=== PATIENT | male | born 1970 | race Caucasian/White ===

== ENCOUNTER 2018-04-29 10:55 | Inpatient (IN) ==
--- NOTE | 2018-04-29 11:20 | Emergency Department Note ---
ED Disposition Clinical Impression: Shortness of breath, Acute exacerbation of chronic obstructive airways disease, CO2 retention Disposition: Admitted as Observation Condition on Discharge: Fair Instructions: DI for Chronic Obstructive Pulmonary Disease, DI for Shortness of Breath Additional Instructions: DI for CO2 Retention Time of Disposition: 12:13 - Critical Care Critical Care Time: Yes Attestation: On , the high probability of a clinically significant, sudden or life threatening deterioration of the following system(s) required my full and direct attention, intervention and personal management. The time I documented below is in addition to time spent performing reported procedures but includes the following listed in this critical care notation. Total Critical Care Time: 45 Vital system(s) involved:: Respiratory Failure My critical care processes included: Assessment & monitoring of V/S, Initial and Re-exams, Data Review/Interpretation, Coordinating Care, Medication Orders and management, Documentation Medical Decision Making - Medical Records Medical records reviewed: Yes: I reviewed the patient's medical records. - Grady Inquiry Pt receiving controlled substance: No Grady was queried for this patient: No Vital Signs: 04/29/18 10:56 04/29/18 11:32 04/29/18 11:50 Temperature 98.4 F Temperature Source Axillary Pulse Rate 106 H Pulse Rate [Right Radial] 84 88 112 H Respiratory Rate 26 H 20 Blood Pressure [Left Arm] 161/95 H 160/87 H 166/90 H Blood Pressure Mean [Left Arm] 117 111 115 Blood Pressure Source [Left Arm] Automatic Cuff Automatic Cuff Automatic Cuff Blood Pressure Position [Left Arm] Sitting Sitting Sitting 02 Sat by Pulse Oximetry 93 L 94 L 97 Oxygen Delivery Method Non-Rebreather Non-Rebreather Non-Rebreather Oxygen Flow Rate (LPM) 15 15 15 - Lab Data Lab results reviewed: Yes: I reviewed the patient's lab results. Lab Results 04/29/18 11:10: WBC 10.1, RBC 5.86, Hgb 17.5, Hct 59.1 H, MCV 100.8 H, MCH 29.9, MCHC 29.7 L, RDW 13.0, Plt Count 269, MPV 7.5, Neut % (Auto) 74.7, Lymph % (A uto) 13.1, [place] % (Auto) 11.4 H, Eos % (Auto) 0.3, Baso % (Auto) 0.4, Neut # (Auto) 7.5, Lymph # (Auto) 1.3, [place] # (Auto) 1.1 H, Eos # (Auto) 0.0, Baso # (Auto) 0.1 04/29/18 11:10: Sodium 137, Potassium 3.8, Chloride 96 L, Carbon Dioxide 38 H, Anion Gap 6.8, BUN 9, Creatinine 0.71, Estimated Creat Clear 176, Estimated GFR 118, Est GFR ( Amer) 143, Glucose 155 H, Calcium 8.9, Total Bilirubin 0.5, AST 14 L, ALT 28, Alkaline Phosphatase 168 H, Troponin I < 0.02, Total Protein 8.7 H, Albumin 3.5, Globulin 5.2 H, Albumin/Globulin Ratio 0.7 L 04/29/18 11:10: Lactate 2.0 04/29/18 11:11: Specimen Source Rt radial, O2 % 100, ABG pH 7.24 L*, ABG pCO2 93.0 H, ABG pO2 212.8 H, ABG HCO3 39.1 H, ABG Total CO2 41.9 H, ABG O2 Saturation 99, ABG Base Excess 11.7 H, Faisal Test Acceptable Result diagrams: 04/29/18 11:10 04/29/18 11:10 Orders (Tests/Meds): ED MEDICATIONS Generic Name Dose Route Start Last Admin Trade Name Freq PRN Reason Stop Dose Admin Sodium Chloride 3 ml 04/29/18 11:15 Sodium Chloride 3% 15ml [facility] 05/29/18 11:14 ONCE PRN INDUCE SPUTUM COLLECTION Discontinued Medications Generic Name Dose Route Start Last Admin Trade Name Freq PRN Reason Stop Dose Admin Albuterol/Ipratropium 3 ml 04/29/18 11:14 04/29/18 11:18 Duoneb 3ml [facility] 04/29/18 11:15 3 ml ONCE ONE Administration Methylprednisolone Sodium Succinate 125 mg 04/29/18 11:14 04/29/18 11:15 Solu-Medrol 125mg/2ml Vial IV 04/29/18 11:15 125 mg ONCE ONE Administration ORDERS Category Date Time Status Chest XR -- portable [XR chest portable] Stat Exams 04/29/18 11:17 Taken Blood Culture Stat Micro 04/29/18 11:10 Received Sputum Culture & Gram Stain Stat Micro 04/29/18 11:31 Ordered Arterial Blood Gas Stat RT 04/29/18 11:11 Ordered - Radiology Data #1 Image(s): Chest Image Reviewed: Yes I reviewed the patient's radiology results Preliminary Findings: Abnormal (Bilateral hilar increaded markings.CHF?) - ECG Data Tracing #1 I reviewed this ECG and interpreted as documented below: NSR;Sinus tachycardia ECG initial impression date: 04/29/18 ECG initial impression time: 11:55 Normal Sinus Rhythm: Yes Arrhythmias present: sinus tach - Physician Consults Physician Consulted: Julian Time: 12:11 Reason -: Admission, Pt condition Comment/Response: Admit - Reevaluation(s) Time: 12:11 (improved) Resp/SOB HPI - General Chief Complaint: Shortness of Breath/Dyspnea Stated Complaint: SOA Time Seen by Provider: 04/29/18 11:17 Mode of Arrival: Ambulatory Source of Information: Patient Limitations: No Limitations Description of Symptoms (Recalled from ER Triage Doc. by RN): Patient states that he has been SOA for 3 weeks and it has gradually gotten worse. He states he has had a "head cold" on and off for several weeks. He has had a bad headache for 2 days. - History of Present Illness MD Complaint: shortness of breath, cough Onset (ago): week(s) (3) Severity: moderate Consistency/Duration: constant Relieving factors: nothing Exacerbating factors: coughing Known history of: asthma Associated symptoms: cough, sputum production Treatment prior to arrival: none - Related Data Home Medications Medication Instructions Recorded Confirmed No Known Home Medications 04/29/18 04/29/18 Allergies Allergy/AdvReac Type Severity Reaction Status Date / Time No Known Allergies Allergy Unverified 05/29/17 14:08 [facility] History I have reviewed the patient's past medical history: Yes - Social History Smoking Status: Current every day smoker Tobacco Type: cigarettes # Packs/Day (cigarettes): 1 ROS Obtained: Yes All systems reviewed & no additional complaints - Constitutional Constitutional: Reports system reviewed and no additional complaints, except as docu, Denies chills, Denies fever(s) - ENT Ears, Nose, Mouth, and Throat: Reports system reviewed and no additional complaints, except as docu, Denies change in voice, Denies dizziness, Denies nasal congestion, Denies nasal obstruction - Cardiovascular Cardiovascular: Reports system reviewed and no additional complaints, except as docu, Denies chest pain, Denies diaphoresis, Reports dyspnea, Denies edema, Denies irregular heart rhythm, Denies leg edema, Denies palpitations - Respiratory Respiratory: Yes system reviewed and no additional complaints, except as docu, Yes cough, Yes dyspnea, No coughing up blood, No pain on inspiration, No pain with cough - Gastrointestinal Gastrointestingal: Reports: system reviewed and no additional complaints, except as docu. Denies: abdominal pain, constipation, diarrhea, nausea, vomiting - Neurologic Neurologic: Reports system reviewed and no additional complaints, except as docu, Denies dizziness, Reports headache(s) Physical Exam - General General appearance: alert, in no apparent distress - Head Head exam: atraumatic, normocephalic, normal inspection - ENT ENT exam: Present: normal exam, normal oropharynx, mucous membranes moist, TM's normal bilaterally, normal external ear exam - Respiratory Respiratory exam: Present: normal lung sounds bilaterally, other (Reduced AE bilaterally). Absent: respiratory distress - Cardiovascular Cardiovascular exam: Present: regular rate, normal rhythm. Absent: JVD - Abdominal Exam Abdominal exam: Present: soft, normal bowel sounds. Absent: distention, tenderness, guarding - Extremities Exam Extremities exam: Present: normal inspection, full ROM, normal capillary refill. Absent: pedal edema, calf tenderness - Back Exam Back exam: Present: normal inspection. Absent: tenderness - Neurological Exam Neurological exam: Present: alert, oriented X3 - Psychiatric Psychiatric exam: Present: normal affect, normal mood
[2018-04-29 11:26] LABS: ABG Base Excess 11.7 mmol/L (-2.4-2.3); ABG HCO3 39.1 mmhg (22.0-26.0); ABG Oxygen Saturation 99 % (90-100); ABG PH 7.24 mmol/L (7.35-7.45); ABG PO2 212.8 mmhg (80-100); ABG TCO2 41.9 mmhg (23-27)
[2018-04-29 11:26] LABS: Basophils # 0.1 K/mm3 (0-0.2); Basophils % 0.4 % (0.1-2.0); Eosinophils % 0.3 % (0.1-12.0); Hematocrit 59.1 % (42.0-52.0); Hemoglobin 17.5 g/dL (14.1-18.0); Lymphocytes # 1.3 K/mm3 (0.7-4.5); Lymphocytes % 13.1 % (10-50); Mean Corpuscular HGB Conc 29.7 g/dL (31.8-35.4); Mean Corpuscular Hemoglobin 29.9 pg (27.0-31.2); Mean Corpuscular Volume 100.8 fl (80-94); Mean Platelet Volume 7.5 fl (7.4-10.4); Monocytes # 1.1 K/mm3 (0.1-1.0); Monocytes % 11.4 % (1.7-9.3); Neutrophils # 7.5 K/mm3 (1.8-7.8); Neutrophils % 74.7 % (37.0-80.0); Platelet Count 269 K/mm3 (142-424); Red Blood Count 5.86 M/mm3 (4.60-6.20); White Blood Count 10.1 K/mm3 (4.8-10.8)
[2018-04-29 11:29] LABS: Allen's Test Acceptable; Oxygen 100 %
[2018-04-29 11:57] LABS: Alanine Aminotransferase 28 U/L (12-78); Albumin Level 3.5 gm/dL (3.4-5.0); Albumin/Globulin Ratio 0.7 (1.1-1.8); Alkaline Phosphatase 168 U/L (46-116); Anion Gap 6.8 mEq/L (5-15); Aspartate Amino Transferase 14 U/L (15-37); Bilirubin,Total 0.5 mg/dL (0.2-1.0); Blood Urea Nitrogen 9 mg/dL (7-18); Calcium 8.9 mg/dL (8.5-10.1); Carbon Dioxide 38 mmol/L (21.0-32.0); Chloride 96 mmol/L (98-107); Globulin 5.2 gm/dl (1.3-3.2); Glucose 155 mg/dL (74-106); Potassium 3.8 mmoL/L (3.5-5.1); Sodium 137 mmol/L (136-145); Total Protein,Serum 8.7 gm/dL (6.4-8.2)
--- NOTE | 2018-04-29 13:24 | History & Physical Report ---
Addendum entered and electronically signed by Yashira BullDEVIN oliveira 04/29/18 14:50: Pt has been placed on BIPAP with FiO2 at 30%; will repeat ABG's in 1 hour Original Note: *Admission Date: 04/29/18 <Yashira Jerome - 04/29/18 13:24> *Chief complaint: shortness of breath <Yashira Jerome 04/29/18 13:43> *History of present illness: Upon arrival to the ER patient stated that he had been SOA for 3 weeks and it gradually worsened. He statesd he had had a "head cold" on and off for several weeks. He had a bad headache for 2 days. This exam patient is unable to give history. Information is obtained from nursing staff, ER record, and indirect comments from a friend. Patient is a 48-year-old male patient who apparently has been sick for the last 2-3 days. He had a cough along with shortness of breath. He did regressed to the point where he requested to come to the emergency room. In the emergency room he was placed on 100% oxygen per nonrebreather. ABGs revealed a respiratory acidosis with a PO2 greater than 200. He was given IV Solu-Medrol, DuoNeb treatment, and started on Zithromax and Rocephin. At this time of exam patient is very poorly responsive. He will sluggishly open eyes to command. Respiratory rate is in the 40s and heart rate is in the 120s. Patient will be placed on BiPAP after ABG is repeated. Apparently patient has had respiratory problems in the past requiring hospitalization. Phone numbers for contacts are not in service and could not obtain additional information. <JeromeYiselYashira - 04/29/18 14:24> [facility] History I have reviewed the patient's past medical history: No (No past medical history is available and patient is unable to answer questi) <JeromeYiselYashira 04/29/18 14:18> Medical History: Reports:: Chronic Obstructive Pulmonary Disease (COPD) Denies:: Diabetes Mellitus Type 1, Diabetes Mellitus Type 2 <JeromeYashira - 04/29/18 14:18> - *Social History Smoking Status: Current every day smoker <JustusYashira 04/29/18 13:24> Tobacco Type: cigarettes <Yashira Jerome - 04/29/18 13:24> # Packs/Day (cigarettes): 1 <Yashira Jermoe 04/29/18 13:24> Alcohol Intake: never <Yashira Jerome 04/29/18 13:24> - Psychiatric History Expresses thoughts of harming self/others: None <Yashira Jerome 04/29/18 13:24> Suicide Plan Description: No Plan <Yashira Jerome 04/29/18 13:24> *Family Hx:: Unable to obtain <Yashira Jerome 04/29/18 14:18> Review of Systems - Constitutional Reports headache(s) <Yashira Jerome 04/29/18 13:43> - *Respiratory Reports cough, Reports shortness of breath <Yashira Jerome 04/29/18 13:43> - *Neurologic Reports headache(s), Denies dizziness <Yashira Jerome 04/29/18 13:24> Meds Home Medications Medication Instructions Recorded Confirmed Type No Known Home Medications 04/29/18 04/29/18 History <Thomas Jordan - 04/29/18 18:58> Allergies Allergy/AdvReac Type Severity Reaction Status Date / Time No Known Allergies Allergy Verified 04/29/18 12:45 <Thomas Jordan - 04/29/18 18:58> Exam Vital signs and Labs for Last 24 Hours: Temp Pulse Resp BP Pulse Ox 97.5 F L 106 H 24 124/72 100 04/29/18 18:00 04/29/18 18:00 04/29/18 18:00 04/29/18 18:00 04/29/18 18:00 Laboratory Results - last 24 hr 04/29/18 11:10: WBC 10.1, RBC 5.86, Hgb 17.5, Hct 59.1 H, MCV 100.8 H, MCH 29.9, MCHC 29.7 L, RDW 13.0, Plt Count 269, MPV 7.5, Neut % (Auto) 74.7, Lymph % (Auto) 13.1, [place] % (Auto) 11.4 H, Eos % (Auto) 0.3, Baso % (Auto) 0.4, Neut # (Auto) 7.5, Lymph # (Auto) 1.3, [place] # (Auto) 1.1 H, Eos # (Auto) 0.0, Baso # (Auto) 0.1 04/29/18 11:10: Sodium 137, Potassium 3.8, Chloride 96 L, Carbon Dioxide 38 H, Anion Gap 6.8, BUN 9, Creatinine 0.71, Estimated Creat Clear 176, Estimated GFR 118, Est GFR ( Amer) 143, Glucose 155 H, Calcium 8.9, Total Bilirubin 0.5, AST 14 L, ALT 28, Alkaline Phosphatase 168 H, Troponin I < 0.02, Total Protein 8.7 H, Albumin 3.5, Globulin 5.2 H, Albumin/Globulin Ratio 0.7 L 04/29/18 11:10: Lactate 2.0 04/29/18 11:11: Specimen Source Rt radial, O2 % 100, ABG pH 7.24 L*, ABG pCO2 93.0 H, ABG pO2 212.8 H, ABG HCO3 39.1 H, ABG Total CO2 41.9 H, ABG O2 Saturation 99, ABG Base Excess 11.7 H, Faisal Test Acceptable 04/29/18 14:05: Specimen Source Rt radial, O2 % 100 nrb, ABG pH 6.98 L*, ABG pCO2 173.2 H, ABG pO2 318.5 H, ABG HCO3 40.2 H, ABG Total CO2 45.6 H, ABG O2 Saturation 99, ABG Base Excess 8.7 H, Faisal Test Acceptable 04/29/18 14:45: Urine Opiates Screen Negative, Urine Methadone Screen Negative, Ur Barbituates Screen Negative, Ur Phencyclidine Scrn Negative, Ur Amphetamines Screen Negative, U Benzodiazepines Scrn Negative, Urine Cocaine Screen Negative, U Marijuana (THC) Screen Negative 04/29/18 14:45: Urine Color Yellow, Urine Appearance Sl cloudy, Urine pH 5.5, Ur Specific [place] >= 1.030, Urine Protein 3+, Urine Glucose (UA) Negative, Urine Ketones Negative, Urine Blood 1+, Urine Nitrate Negative, Urine Bilirubin 2+ A, Urine Urobilinogen 2.0, Ur Leukocyte Esterase Negative, Urine RBC 5-10, Urine WBC Occasional, Ur Squamous Epith Cells None, Urine Bacteria Trace 04/29/18 15:35: Troponin I < 0.02 04/29/18 15:42: Specimen Source Rt radial, O2 % 30, ABG pH 7.15 L*, ABG pCO2 117.4 H, ABG pO2 54.3 L, ABG HCO3 39.8 H, ABG Total CO2 43.4 H, ABG O2 Saturation 87 L*, ABG Base Excess 10.9 H, Faisal Test Acceptable, Vent Rate 22, Tidal Volume Bipap 20/4 <[place],Thomas - 04/29/18 18:58> Temp Pulse Resp BP Pulse Ox 98.4 F 103 H 24 188/88 H 94 L 04/29/18 10:56 04/29/18 12:53 04/29/18 12:53 04/29/18 12:53 04/29/18 12:53 Laboratory Results - last 24 hr 04/29/18 11:10: WBC 10.1, RBC 5.86, Hgb 17.5, Hct 59.1 H, MCV 100.8 H, MCH 29.9, MCHC 29.7 L, RDW 13.0, Plt Count 269, MPV 7.5, Neut % (Auto) 74.7, Lymph % (Auto) 13.1, [place] % (Auto) 11.4 H, Eos % (Auto) 0.3, Baso % (Auto) 0.4, Neut # (Auto) 7.5, Lymph # (Auto) 1.3, [place] # (Auto) 1.1 H, Eos # (Auto) 0.0, Baso # (Auto) 0.1 04/29/18 11:10: Sodium 137, Potassium 3.8, Chloride 96 L, Carbon Dioxide 38 H, Anion Gap 6.8, BUN 9, Creatinine 0.71, Estimated Creat Clear 176, Estimated GFR 118, Est GFR ( Amer) 143, Glucose 155 H, Calcium 8.9, Total Bilirubin 0.5, AST 14 L, ALT 28, Alkaline Phosphatase 168 H, Troponin I < 0.02, Total Protein 8.7 H, Albumin 3.5, Globulin 5.2 H, Albumin/Globulin Ratio 0.7 L 04/29/18 11:10: Lactate 2.0 04/29/18 11:11: Specimen Source Rt radial, O2 % 100, ABG pH 7.24 L*, ABG pCO2 93.0 H, ABG pO2 212.8 H, ABG HCO3 39.1 H, ABG Total CO2 41.9 H, ABG O2 Saturation 99, ABG Base Excess 11.7 H, Faisal Test Acceptable <Yashira Jerome - 04/29/18 13:24> I & O for Last 24 hours: Intake & Output 04/27/18 04/28/18 04/29/18 04/30/18 11:59 11:59 11:59 11:59 Output Total 500 / 500 Balance -500 / -500 Weight 215 lb 196 lb 4 oz <Thomas Jordan - 04/29/18 18:58> Intake & Output 04/27/18 04/28/18 04/29/18 04/30/18 11:59 11:59 11:59 11:59 Weight 215 lb <Yashira Jerome - 04/29/18 13:24> - Constitutional Comments: Patient is in acute respiratory distress at present. He responds poorly by just opening his eyes to calling of his name. <Yashira Jerome 04/29/18 14:18> - *Routine HEENT Exam Eye: Present: PERRL <Yashira Jerome 04/29/18 14:18> - *Routine Neck Exam Absent: carotid bruit, lymphadenopathy, thyromegaly <Yashira Jerome 04/29/18 14:18> - *Routine Respiratory Exam Comments: Rapid respiratory effort in the 40s with poor inspiratory effort. He has rhonchi throughout. He did <Yashira Jerome - 04/29/18 14:18> - *Routine Cardiovascular Exam Present: RRR <Yashira Jerome 04/29/18 14:18> - *Routine Abdominal Exam Present: soft, normoactive bowel sounds. Absent: tenderness <Yashira Jerome 04/29/18 14:18> - *Routine Extremities Exam Present: pulses intact. Absent: edema <Yashira Jerome 04/29/18 14:18> - *Routine Neurological Exam Present: altered mental status <Yashira Jerome 04/29/18 14:18> Patient opens eyes in response to verbal stimulation <Yashira Jerome 04/29/18 14:18> Assessment and Plan (1) Acute exacerbation of chronic obstructive airways disease Current visit: Yes Status: Acute Category: Medical Code(s): J44.1 - Chronic obstructive pulmonary disease with (acute) exacerbation (2) Hypercapnic respiratory failure Current visit: Yes Status: Acute Category: Medical Code(s): J96.92 - Respiratory failure, unspecified with hypercapnia (3) Acute respiratory acidosis Current visit: Yes Status: Acute Category: Medical Code(s): E87.2 - Acidosis (4) Tobacco abuse Current visit: Yes Status: Acute Category: Medical Code(s): Z72.0 - Tobacco use <Thomas Jordan - 04/29/18 18:58> (1) Tobacco abuse Current visit: Yes Status: Acute Category: Medical Code(s): Z72.0 - Tobacco use (2) Acute exacerbation of chronic obstructive airways disease Current visit: Yes Status: Acute Category: Medical Code(s): J44.1 - Chronic obstructive pulmonary disease with (acute) exacerbation <Yashira Jerome - 04/29/18 14:26> - Assessment and plan all Dx Assessment and Plan for all problems:: Saw patient agree with above note. Continue BiPAP support and ICU care. <Thomas Jordan - 04/29/18 18:58> Chest x-ray is pending at this time. Will hold the Lasix ordered in the emergency room; will place on BiPAP and continue with antibiotic treatments. We will continue with duo nebs as well. May require pulmonary toilet with suctioning. Placed on monitor and continuous O2 monitoring as well. It does not awaken will need a Ibarra catheter. ABGs: PH is 6. 9 was with a PCO2 of 170s and a PO2 of 313. Was started on BiPAP. <Yashira Jerome - 04/29/18 14:35>
[2018-04-29 14:26] LABS: ABG Base Excess 8.7 mmol/L (-2.4-2.3); ABG HCO3 40.2 mmhg (22.0-26.0); ABG Oxygen Saturation 99 % (90-100); ABG PO2 318.5 mmhg (80-100); ABG TCO2 45.6 mmhg (23-27)
[2018-04-29 14:28] LABS: Allen's Test Acceptable; Oxygen 100 NRB %
[2018-04-29 14:31] LABS: ABG PCO2 173.2 mmhg (35.0-45.0); ABG PH 6.98 mmol/L (7.35-7.45)
--- NOTE | 2018-04-29 14:47 | Pharmacy Consult Notes ---
[facility] Pharmacy VTE Monitoring - Patient Demographics Admission date: 04/29/18 Report Date: 04/29/18 Time: 14:47 Allergies/Adverse Reactions: Patient Allergies No Known Allergies Allergy (Verified 04/29/18 12:45) Height: 1.78 m Weight: 89.018 kg Patient Problems: Current Active Problems Shortness of breath (Acute) Acute exacerbation of chronic obstructive airways disease (Acute) CO2 retention (Acute) Tobacco abuse (Acute) - VTE Risk Labs: VTE Related Lab Results Hgb 17.5 g/dL (14.1-18.0) 04/29/18 11:10 Hct 59.1 % (42.0-52.0) H 04/29/18 11:10 Plt Count 269 K/mm3 (142-424) 04/29/18 11:10 BUN 9 mg/dL (7-18) 04/29/18 11:10 Creatinine 0.71 mg/dL (0.70-1.30) 04/29/18 11:10 Estimated Creat Clear 176 mL/min (50-200) 04/29/18 11:10 Was VTE Risk Assessment Performed: Yes VTE Score: 2 VTE Risk Level: Low Risk - Prophylaxis VTE Prophylaxis Ordered?: Yes Types of VTE Prophylaxis: TEDS Knee High Location of Applied Device: Bilateral Lower Extremeties
[2018-04-29 15:00] LABS: Microscopic, Urine URINE MICROSCOPIC (MICROSCOPIC)
[2018-04-29 15:10] LABS: Amphetamine/Metha Screen,Urine Negative ng/mL (<1000); Barbiturates Screen,Urine Negative ng/mL (<200); Benzodiazepines Screen,Urine Negative ng/mL (<200); Cannabinoid Screen,Urine Negative ng/mL (<50); Cocaine Screen,Urine Negative ng/mL (<300); Methadone Screen,Urine Negative ng/mL (<300); Opiate Screen,Urine Negative ng/mL (<300); Phencyclidine Screen,Urine Negative ng/mL (<25)
[2018-04-29 15:24] LABS: Appearance,Urine SL CLOUDY (Clear); Blood, Urine 1+ (Negative); Color,Urine YELLOW (Yellow); Glucose,Urine (UA) Negative (Negative); Ketones,Urine Negative (Negative); Leukocyte Esterase,Urine Negative (Negative); PH,Urine 5.5 (5.0-8.5); Protein,Urine 3+ (Negative); Specific Gravity, Urine >= 1.030 (1.005-1.030)
[2018-04-29 15:25] LABS: Bilirubin,Urine 2+ (Negative)
[2018-04-29 15:40] LABS: WBC,Urine Occasional #/hpf (0-3)
[2018-04-29 15:41] LABS: Bacteria,Urine Trace /lpf
[2018-04-29 15:55] LABS: ABG Base Excess 10.9 mmol/L (-2.4-2.3); ABG HCO3 39.8 mmhg (22.0-26.0); ABG Oxygen Saturation 87 % (90-100); ABG PO2 54.3 mmhg (80-100); ABG TCO2 43.4 mmhg (23-27)
[2018-04-29 16:00] LABS: Allen's Test Acceptable; Oxygen 30 %
[2018-04-29 16:01] LABS: ABG PH 7.15 mmol/L (7.35-7.45)
[2018-04-29 16:03] LABS: ABG PCO2 117.4 mmhg (35.0-45.0)
[2018-04-30 05:53] LABS: Basophils % 0.1 % (0.1-2.0); Eosinophils # 0.1 K/mm3 (0.0-0.4); Eosinophils % 0.5 % (0.1-12.0); Hematocrit 52.7 % (42.0-52.0); Lymphocytes % 9.5 % (10-50); Mean Corpuscular HGB Conc 29.1 g/dL (31.8-35.4); Mean Corpuscular Hemoglobin 29.7 pg (27.0-31.2); Mean Corpuscular Volume 102.3 fl (80-94); Monocytes % 9.4 % (1.7-9.3); Neutrophils # 8.1 K/mm3 (1.8-7.8); Neutrophils % 80.5 % (37.0-80.0); Platelet Count 228 K/mm3 (142-424); Red Blood Count 5.15 M/mm3 (4.60-6.20); Red Cell Distribution Width 12.9 % (11.5-17.5); White Blood Count 10.1 K/mm3 (4.8-10.8)
[2018-04-30 06:12] LABS: Albumin Level 2.8 gm/dL (3.4-5.0); Albumin/Globulin Ratio 0.7 (1.1-1.8); Anion Gap 5.2 mEq/L (5-15); Bilirubin,Total 0.3 mg/dL (0.2-1.0); Calcium 8.4 mg/dL (8.5-10.1); Chol/HDL Ratio 3.3 (1-3.5); Globulin 4.2 gm/dl (1.3-3.2); Potassium 4.2 mmoL/L (3.5-5.1)
[2018-04-30 06:29] LABS: Hemoglobin 15.3 g/dL (14.1-18.0)
--- NOTE | 2018-04-30 08:58 | Progress Note ---
<Yashira Jerome - Last Filed: 04/30/18 08:55> Internal Medicine - PN: Subj *Date: 04/30/18 *Time: 07:30 Interval history: Per nursing: Patient is doing much better. Was changed to nasal cannula with O2 at 2 L. Patient states he is doing better today. He does not remember much of yesterday. He feels he is breathing better. He has a nonproductive cough. He has not had a DuoNeb treatment since last p.m. he denies shortness of breath. He denies chest pain. He is not hungry. Further history of the patient: Patient has a history of COPD and has had pneumonia previously. He denies any heart and stomach issues. Continues to smoke about a pack a day. Exam Vital signs and Labs for Last 24 Hours: Temp Pulse Resp BP Pulse Ox 98.7 F 103 H 24 116/67 96 04/30/18 04:00 04/30/18 08:08 04/30/18 02:00 04/30/18 06:00 04/30/18 08:08 Laboratory Results - last 24 hr 04/29/18 11:10: WBC 10.1, RBC 5.86, Hgb 17.5, Hct 59.1 H, MCV 100.8 H, MCH 29.9, MCHC 29.7 L, RDW 13.0, Plt Count 269, MPV 7.5, Neut % (Auto) 74.7, Lymph % (Auto) 13.1, [place] % (Auto) 11.4 H, Eos % (Auto) 0.3, Baso % (Auto) 0.4, Neut # (Auto) 7.5, Lymph # (Auto) 1.3, [place] # (Auto) 1.1 H, Eos # (Auto) 0.0, Baso # (Auto) 0.1 04/29/18 11:10: Sodium 137, Potassium 3.8, Chloride 96 L, Carbon Dioxide 38 H, Anion Gap 6.8, BUN 9, Creatinine 0.71, Estimated Creat Clear 176, Estimated GFR 118, Est GFR ( Amer) 143, Glucose 155 H, Calcium 8.9, Total Bilirubin 0.5, AST 14 L, ALT 28, Alkaline Phosphatase 168 H, Troponin I < 0.02, Total Protein 8.7 H, Albumin 3.5, Globulin 5.2 H, Albumin/Globulin Ratio 0.7 L 04/29/18 11:10: Lactate 2.0 04/29/18 11:11: Specimen Source Rt radial, O2 % 100, ABG pH 7.24 L*, ABG pCO2 93.0 H, ABG pO2 212.8 H, ABG HCO3 39.1 H, ABG Total CO2 41.9 H, ABG O2 Saturation 99, ABG Base Excess 11.7 H, Faisal Test Acceptable 04/29/18 14:05: Specimen Source Rt radial, O2 % 100 nrb, ABG pH 6.98 L*, ABG pCO2 173.2 H, ABG pO2 318.5 H, ABG HCO3 40.2 H, ABG Total CO2 45.6 H, ABG O2 Saturation 99, ABG Base Excess 8.7 H, Faisal Test Acceptable 04/29/18 14:45: Urine Opiates Screen Negative, Urine Methadone Screen Negative, Ur Barbituates Screen Negative, Ur Phencyclidine Scrn Negative, Ur Amphetamines Screen Negative, U Benzodiazepines Scrn Negative, Urine Cocaine Screen Negative, U Marijuana (THC) Screen Negative 04/29/18 14:45: Urine Color Yellow, Urine Appearance Sl cloudy, Urine pH 5.5, Ur Specific [place] >= 1.030, Urine Protein 3+, Urine Glucose (UA) Negative, Urine Ketones Negative, Urine Blood 1+, Urine Nitrate Negative, Urine Bilirubin 2+ A, Urine Urobilinogen 2.0, Ur Leukocyte Esterase Negative, Urine RBC 5-10, Urine WBC Occasional, Ur Squamous Epith Cells None, Urine Bacteria Trace 04/29/18 15:35: Troponin I < 0.02 04/29/18 15:42: Specimen Source Rt radial, O2 % 30, ABG pH 7.15 L*, ABG pCO2 117.4 H, ABG pO2 54.3 L, ABG HCO3 39.8 H, ABG Total CO2 43.4 H, ABG O2 Saturation 87 L*, ABG Base Excess 10.9 H, Faisal Test Acceptable, Vent Rate 22, Tidal Volume Bipap 20/4 04/29/18 21:00: Troponin I < 0.02 04/30/18 05:00: WBC 10.1, RBC 5.15, Hgb 15.3 D, Hct 52.7 H, MCV 102.3 H, MCH 29.7, MCHC 29.1 L, RDW 12.9, Plt Count 228, MPV 8.0, Neut % (Auto) 80.5 H, Lymph % (Auto) 9.5 L, [place] % (Auto) 9.4 H, Eos % (Auto) 0.5, Baso % (Auto) 0.1, Neut # (Auto) 8.1 H, Lymph # (Auto) 1.0, [place] # (Auto) 1.0, Eos # (Auto) 0.1, Baso # (Auto) 0.0 04/30/18 05:00: Sodium 141, Potassium 4.2, Chloride 100, Carbon Dioxide 40 H, Anion Gap 5.2, BUN 15 D, Creatinine 0.66 L, Estimated Creat Clear 172, Estimated GFR 129, Est GFR ( Amer) 156, Glucose 108 H D, Calcium 8.4 L, Magnesium 1.8, Total Bilirubin 0.3, AST 11 L, ALT 21, Alkaline Phosphatase 131 H , Total Protein 7.0, Albumin 2.8 L D, Globulin 4.2 H, Albumin/Globulin Ratio 0.7 L, Triglycerides 55, Cholesterol 116 L, LDL Cholesterol 70, VLDL Cholesterol 11, HDL Cholesterol 35, Cholesterol/HDL Ratio 3.3 I & O for Last 24 hours: Intake & Output 04/27/18 04/28/18 04/29/18 04/30/18 11:59 11:59 11:59 11:59 Intake Total 978 / 978 Output Total 500 / 500 Balance 478 / 478 Weight 215 lb 196 lb 4 oz Microbiology Reports for the Last 24 Hours: Microbiology 04/29/18 23:50 Sputum - Expectorated Sputum Gram Stain - Final - Constitutional no acute distress Comments: Awakened for assessment. Patient is easily aroused and speech is clear. He appears comfortable. Respiratory effort is easy and unlabored. He has a congested cough. - *Routine Respiratory Exam Comments: Bilateral rhonchi throughout - *Routine Cardiovascular Exam Present: RRR - *Routine Abdominal Exam Present: soft, normoactive bowel sounds. Absent: tenderness, distended - *Routine Extremities Exam Absent: edema, calf tenderness - *Routine Neurological Exam Present: alert, oriented X3 Assessment and Plan (1) Acute exacerbation of chronic obstructive airways disease Current visit: Yes Status: Acute Category: Medical Code(s): J44.1 - Chronic obstructive pulmonary disease with (acute) exacerbation (2) Hypercapnic respiratory failure Current visit: Yes Status: Acute Category: Medical Code(s): J96.92 - Respi ratory failure, unspecified with hypercapnia (3) Acute respiratory acidosis Current visit: Yes Status: Acute Category: Medical Code(s): E87.2 - Acidosis (4) Tobacco abuse Current visit: Yes Status: Acute Category: Medical Code(s): Z72.0 - Tobacco use - Assessment and plan all Dx Assessment and Plan for all problems:: We will continue with IV antibiotics, low-dose IV fluids, and urinalysis. Will move out of stepdown <Thomas Jordan - Last Filed: 04/30/18 09:25> Exam Vital signs and Labs for Last 24 Hours: Temp Pulse Resp BP Pulse Ox 98.4 F 103 H 32 H 118/73 96 04/30/18 08:00 04/30/18 08:08 04/30/18 08:00 04/30/18 08:00 04/30/18 08:08 Laboratory Results - last 24 hr 04/29/18 11:10: WBC 10.1, RBC 5.86, Hgb 17.5, Hct 59.1 H, MCV 100.8 H, MCH 29.9, MCHC 29.7 L, RDW 13.0, Plt Count 269, MPV 7.5, Neut % (Auto) 74.7, Lymph % (Auto) 13.1, [place] % (Auto) 11.4 H, Eos % (Auto) 0.3, Baso % (Auto) 0.4, Neut # (Auto) 7.5, Lymph # (Auto) 1.3, [place] # (Auto) 1.1 H, Eos # (Auto) 0.0, Baso # (Auto) 0.1 04/29/18 11:10: Sodium 137, Potassium 3.8, Chloride 96 L, Carbon Dioxide 38 H, Anion Gap 6.8, BUN 9, Creatinine 0.71, Estimated Creat Clear 176, Estimated GFR 118, Est GFR ( Amer) 143, Glucose 155 H, Calcium 8.9, Total Bilirubin 0.5, AST 14 L, ALT 28, Alkaline Phosphatase 168 H, Troponin I < 0.02, Total Protein 8.7 H, Albumin 3.5, Globulin 5.2 H, Albumin/Globulin Ratio 0.7 L 04/29/18 11:10: Lactate 2.0 04/29/18 11:11: Specimen Source Rt radial, O2 % 100, ABG pH 7.24 L*, ABG pCO2 93.0 H, ABG pO2 212.8 H, ABG HCO3 39.1 H, ABG Total CO2 41.9 H, ABG O2 Saturation 99, ABG Base Excess 11.7 H, Faisal Test Acceptable 04/29/18 14:05: Specimen Source Rt radial, O2 % 100 nrb, ABG pH 6.98 L*, ABG pCO2 173.2 H, ABG pO2 318.5 H, ABG HCO3 40.2 H, ABG Total CO2 45.6 H, ABG O2 Saturation 99, ABG Base Excess 8.7 H, Faisal Test Acceptable 04/29/18 14:45: Urine Opiates Screen Negative, Urine Methadone Screen Negative, Ur Barbituates Screen Negative, Ur Phencyclidine Scrn Negative, Ur Amphetamines Screen Negative, U Benzodiazepines Scrn Negative, Urine Cocaine Screen Negative, U Marijuana (THC) Screen Negative 04/29/18 14:45: Urine Color Yellow, Urine Appearance Sl cloudy, Urine pH 5.5, Ur Specific [place] >= 1.030, Urine Protein 3+, Urine Glucose (UA) Negative, Urine Ketones Negative, Urine Blood 1+, Urine Nitrate Negative, Urine Bilirubin 2+ A, Urine Urobilinogen 2.0, Ur Leukocyte Esterase Negative, Urine RBC 5-10, Urine WBC Occasional, Ur Squamous Epith Cells None, Urine Bacteria Trace 04/29/18 15:35: Troponin I < 0.02 04/29/18 15:42: Specimen Source Rt radial, O2 % 30, ABG pH 7.15 L*, ABG pCO2 117.4 H, ABG pO2 54.3 L, ABG HCO3 39.8 H, ABG Total CO2 43.4 H, ABG O2 Saturation 87 L*, ABG Base Excess 10.9 H, Faisal Test Acceptable, Vent Rate 22, Tidal Volume Bipap 20/4 04/29/18 21:00: Troponin I < 0.02 04/30/18 05:00: WBC 10.1, RBC 5.15, Hgb 15.3 D, Hct 52.7 H, MCV 102.3 H, MCH 29.7, MCHC 29.1 L, RDW 12.9, Plt Count 228, MPV 8.0, Neut % (Auto) 80.5 H, Lymph % (Auto) 9.5 L, [place] % (Auto) 9.4 H, Eos % (Auto) 0.5, Baso % (Auto) 0.1, Neut # (Auto) 8.1 H, Lymph # (Auto) 1.0, [place] # (Auto) 1.0, Eos # (Auto) 0.1, Baso # (Auto) 0.0 04/30/18 05:00: Sodium 141, Potassium 4.2, Chloride 100, Carbon Dioxide 40 H, Anion Gap 5.2, BUN 15 D, Creatinine 0.66 L, Estimated Creat Clear 172, Estimated GFR 129, Est GFR ( Amer) 156, Glucose 108 H D, Calcium 8.4 L, Magnesium 1.8, Total Bilirubin 0.3, AST 11 L, ALT 21, Alkaline Phosphatase 131 H , Total Protein 7.0, Albumin 2.8 L D, Globulin 4.2 H, Albumin/Globulin Ratio 0.7 L, Triglycerides 55, Cholesterol 116 L, LDL Cholesterol 70, VLDL Cholesterol 11, HDL Cholesterol 35, Cholesterol/HDL Ratio 3.3 I & O for Last 24 hours: Intake & Output 04/27/18 04/28/18 04/29/18 04/30/18 11:59 11:59 11:59 11:59 Intake Total 1078 / 1078 Output Total 500 / 500 Balance 578 / 578 Weight 215 lb 196 lb 4 oz Microbiology Reports for the Last 24 Hours: Microbiology 04/29/18 23:50 Sputum - Expectorated Sputum Gram Stain - Final Assessment and Plan (1) Acute exacerbation of chronic obstructive airways disease Current visit: Yes Status: Acute Category: Medical Code(s): J44.1 - Chronic obstructive pulmonary disease with (acute) exacerbation (2) Hypercapnic respiratory failure Current visit: Yes Status: Acute Category: Medical Code(s): J96.92 - Respiratory failure, unspecified with hypercapnia (3) Acute respiratory acidosis Current visit: Yes Status: Acute Category: Medical Code(s): E87.2 - Acidosis (4) Tobacco abuse Current visit: Yes Status: Acute Category: Medical Code(s): Z72.0 - Tobacco use - Assessment and plan all Dx Assessment and Plan for all problems:: Saw patient, agree with above note.
--- NOTE | 2018-05-01 08:19 | Progress Note ---
<Gaby Lowe - Last Filed: 05/01/18 08:17> Internal Medicine - PN: Subj *Date: 05/01/18 *Time: 08:17 Interval history: Patient states he is feeling much better today. He denies any shortness of breath. He does have a slight cough. He states he rested well last night and ate breakfast this morning. He is doing well on nasal oxygen and is not sleep with BiPAP last night. Exam Vital signs and Labs for Last 24 Hours: Temp Pulse Resp BP Pulse Ox 98.2 F 93 H 20 123/71 86 L 05/01/18 07:38 05/01/18 08:14 05/01/18 08:00 05/01/18 07:38 05/01/18 08:14 I & O for Last 24 hours: Intake & Output 04/28/18 04/29/18 04/30/18 05/01/18 11:59 11:59 11:59 11:59 Intake Total 1078 / 1078 3541 / 3541 Output Total 500 / 500 1775 / 1775 Balance 578 / 578 1766 / 1766 Weight 215 lb 196 lb 4 oz 204 lb 3 oz Microbiology Reports for the Last 24 Hours: Microbiology 04/29/18 23:50 Sputum - Expectorated Sputum Gram Stain - Final 04/29/18 23:50 Sputum - Expectorated Sputum Sputum Culture - Preliminary - Constitutional no acute distress - *Routine Respiratory Exam Present: CTA bilaterally - *Routine Cardiovascular Exam Present: RRR - *Routine Abdominal Exam Present: soft, normoactive bowel sounds. Absent: tenderness - *Routine Extremities Exam Absent: cyanosis, clubbing, edema Assessment and Plan (1) Acute exacerbation of chronic obstructive airways disease Current visit: Yes Status: Acute Category: Medical Code(s): J44.1 - Chronic obstructive pulmonary disease with (acute) exacerbation (2) Hypercapnic respiratory failure Current visit: Yes Status: Acute Category: Medical Code(s): J96.92 - Respiratory failure, unspecified with hypercapnia (3) Acute respiratory acidosis Current visit: Yes Status: Acute Category: Medical Code(s): E87.2 - Acidosis (4) Tobacco abuse Current visit: Yes Status: Acute Category: Medical Code(s): Z72.0 - Tobacco use - Assessment and plan all Dx Assessment and Plan for all problems:: Patient improving. Will discuss further care with Dr. Jordan. <Thomas Jordan - Last Filed: 05/01/18 08:34> Exam Vital signs and Labs for Last 24 Hours: Temp Pulse Resp BP Pulse Ox 98.2 F 93 H 20 123/71 86 L 05/01/18 07:38 05/01/18 08:14 05/01/18 08:00 05/01/18 07:38 05/01/18 08:14 I & O for Last 24 hours: Intake & Output 04/28/18 04/29/18 04/30/18 05/01/18 11:59 11:59 11:59 11:59 Intake Total 1078 / 1078 3541 / 3541 Output Total 500 / 500 1775 / 1775 Balance 578 / 578 1766 / 1766 Weight 215 lb 196 lb 4 oz 204 lb 3 oz Microbiology Reports for the Last 24 Hours: Microbiology 04/29/18 23:50 Sputum - Expectorated Sputum Gram Stain - Final 04/29/18 23:50 Sputum - Expectorated Sputum Sputum Culture - Preliminary Assessment and Plan (1) Acute exacerbation of chronic obstructive airways disease Current visit: Yes Status: Acute Category: Medical Code(s): J44.1 - Chronic obstructive pulmonary disease with (acute) exacerbation (2) Hypercapnic respiratory failure Current visit: Yes Status: Acute Category: Medical Code(s): J96.92 - Respiratory failure, unspecified with hypercapnia (3) Acute respiratory acidosis Current visit: Yes Status: Acute Category: Medical Code(s): E87.2 - Acidosis (4) Tobacco abuse Current visit: Yes Status: Acute Category: Medical Code(s): Z72.0 - Tobacco use - Assessment and plan all Dx Assessment and Plan for all problems:: Saw patient, agree with above note. He's still requiring supplemental oxygen.
--- NOTE | 2018-05-02 09:47 | Progress Note ---
Internal Medicine - PN: Subj *Date: 05/02/18 *Time: 09:44 Interval history: Patient with no new complaints today, still gets short of breath with any activity. Room air sats at rest finally up to the low 90's Exam Vital signs and Labs for Last 24 Hours: Temp Pulse Resp BP Pulse Ox 97.7 F 84 16 121/85 93 L 05/02/18 08:00 05/02/18 08:00 05/02/18 08:00 05/02/18 08:00 05/02/18 09:38 Vital Signs Temp Pulse Pulse Pulse Resp BP BP 05/02/18 09:38 05/02/18 08:00 97.7 F 84 16 121/85 05/02/18 06:43 85 05/02/18 04:00 98.1 F 71 20 111/51 L 05/01/18 23:15 05/01/18 22:34 81 05/01/18 20:00 05/01/18 19:44 98.2 F 78 20 124/66 05/01/18 16:59 71 05/01/18 15:40 98.3 F 72 18 122/73 05/01/18 12:43 102 H Pulse Ox 05/02/18 09:38 93 L 05/02/18 08:00 91 L 05/02/18 06:43 90 L 05/02/18 04:00 94 L 05/01/18 23:15 87 L 05/01/18 22:34 90 L 05/01/18 20:00 93 L 05/01/18 19:44 93 L 05/01/18 16:59 92 L 05/01/18 15:40 94 L 05/01/18 12:43 Intake and Output 05/01/18 05/02/18 05/02/18 19:59 03:59 11:59 Intake Total 1159 / 1159 360 / 360 Output Total 200 / 200 Balance 1159 / 1159 -200 / -200 360 / 360 Intake: Intake, Oral Amount 600 / 600 360 / 360 Intake, Tube Feeding Amount / Intake, Total IV Amount 558 / 558 0.9 % Sodium Chloride 1,000 ml 258 / 258 @ 50 mls/hr IV .Q20H [facility] Rx#: [id number] Azithromycin 500 mg In 0.9 % 250 / 250 Sodium Chloride 250 ml @ 250 mls/hr IV Q24H [facility] Rx#:[id number] Ceftriaxone 1 gm 1 gm In 0.9 % 50 / 50 Sodium Chloride 50 ml @ 100 mls /hr IV Q24H [facility] Rx#:[id number] Output: Output, Urine Amount 200 / 200 Other: Number of Unmeasured Voids 1 3 Number of Bowel Movements 3 I & O for Last 24 hours: Intake & Output 04/29/18 04/30/18 05/01/18 05/02/18 11:59 11:59 11:59 11:59 Intake Total 1078 / 1078 3541 / 3541 1519 / 1519 Output Total 500 / 500 2125 / 2125 200 / 200 Balance 578 / 578 1416 / 1416 1319 / 1319 Weight 215 lb 196 lb 4 oz 204 lb 3 oz Microbiology Reports for the Last 24 Hours: Microbiology 04/29/18 23:50 Sputum - Expectorated Sputum Gram Stain - Final 04/29/18 23:50 Sputum - Expectorated Sputum Sputum Culture - Final Normal Respiratory Dilia 04/29/18 11:10 Blood Blood Culture - Preliminary NO GROWTH AFTER 48 HOURS 04/29/18 11:10 Blood Blood Culture - Preliminary NO GROWTH AFTER 48 HOURS - Constitutional no acute distress - *Routine HEENT Exam Head: Present: normocephalic Eye: Present: EOMI, PERRL ENT: Present: mucous membranes moist - *Routine Neck Exam Present: supple. Absent: lymphadenopathy - *Routine Respiratory Exam Present: CTA bilaterally - *Routine Cardiovascular Exam Present: RRR - *Routine Abdominal Exam Present: soft, normoactive bowel sounds. Absent: tenderness - *Routine Extremities Exam Absent: cyanosis, clubbing, edema - *Routine Skin Exam Present: warm. Absent: rash - *Routine Neurological Exam Present: alert, oriented X3 Assessment and Plan (1) Acute exacerbation of chronic obstructive airways disease Current visit: Yes Status: Acute Category: Medical Code(s): J44.1 - Chronic obstructive pulmonary disease with (acute) exacerbation (2) Hypercapnic respiratory failure Current visit: Yes Status: Acute Category: Medical Code(s): J96.92 - Respiratory failure, unspecified with hypercapnia (3) Acute respiratory acidosis Current visit: Yes Status: Acute Category: Medical Code(s): E87.2 - Acidosis (4) Tobacco abuse Current visit: Yes Status: Acute Category: Medical Code(s): Z72.0 - Tobacco use (5) History of exposure to noxious chemical Current visit: Yes Status: Acute Category: Medical Code(s): Z77.9 - Other contact with and (suspected) exposures hazardous to health - Assessment and plan all Dx Assessment and Plan for all problems:: Patient is improving. He does not feel like he is ready to be discharged, will continue current treatment.
--- NOTE | 2018-05-03 09:11 | Progress Note ---
<Day Crow - Last Filed: 05/03/18 09:09> Internal Medicine - PN: Subj *Date: 05/03/18 *Time: 07:40 Interval history: Pt is sitting up in bed watching tv. He denies any pain or SOB, notes infrequent productive cough. He reports that he feels ready to go home. Exam Vital signs and Labs for Last 24 Hours: Temp Pulse Resp BP Pulse Ox 98.1 F 72 18 127/79 93 L 05/03/18 08:00 05/03/18 08:00 05/03/18 08:00 05/03/18 08:00 05/03/18 08:04 I & O for Last 24 hours: Intake & Output 04/30/18 05/01/18 05/02/18 05/03/18 11:59 11:59 11:59 11:59 Intake Total 1078 / 1078 3541 / 3541 1519 / 1519 2501 / 2501 Output Total 500 / 500 2125 / 2125 200 / 200 200 / 200 Balance 578 / 578 1416 / 1416 1319 / 1319 2301 / 2301 Weight 196 lb 4 oz 204 lb 3 oz 205 lb Microbiology Reports for the Last 24 Hours: Microbiology 04/29/18 23:50 Sputum - Expectorated Sputum Gram Stain - Final 04/29/18 23:50 Sputum - Expectorated Sputum Sputum Culture - Final Normal Respiratory Dilia - Constitutional no acute distress - *Routine HEENT Exam Head: Present: normocephalic, atraumatic ENT: Present: mucous membranes moist - *Routine Respiratory Exam Comments: O2 in place per NC, good air movement with bibasilar wheezes - *Routine Cardiovascular Exam Present: RRR - *Routine Abdominal Exam Present: soft, normoactive bowel sounds. Absent: tenderness, distended, rebound, guarding, rigid, organomegaly - *Routine Extremities Exam Present: full ROM, pulses intact. Absent: edema, calf tenderness - *Routine Neurological Exam Present: alert, oriented X3, moving all extremities, normal speech Assessment and Plan (1) Acute exacerbation of chronic obstructive airways disease Current visit: Yes Status: Acute Category: Medical Code(s): J44.1 - Chronic obstructive pulmonary disease with (acute) exacerbation (2) Hypercapnic respiratory failure Current visit: Yes Status: Acute Category: Medical Code(s): J96.92 - Respiratory failure, unspecified with hypercapnia (3) Acute respiratory acidosis Current visit: Yes Status: Acute Category: Medical Code(s): E87.2 - Acidosis (4) Tobacco abuse Current visit: Yes Status: Acute Category: Medical Code(s): Z72.0 - Tobacco use (5) History of exposure to noxious chemical Current visit: Yes Status: Acute Category: Medical Code(s): Z77.9 - Other contact with and (suspected) exposures hazardous to health - Assessment and plan all Dx Assessment and Plan for all problems:: per Dr. Moon. <Shivam Moon - Last Filed: 05/03/18 13:25> Exam Vital signs and Labs for Last 24 Hours: Temp Pulse Resp BP Pulse Ox 98.1 F 81 18 127/79 92 L 05/03/18 08:00 05/03/18 12:45 05/03/18 08:00 05/03/18 08:00 05/03/18 10:32 I & O for Last 24 hours: Intake & Output 05/01/18 05/02/18 05/03/18 05/04/18 11:59 11:59 11:59 11:59 Intake Total 3541 / 3541 1519 / 1519 2501 / 2501 Output Total 2125 / 2125 200 / 200 200 / 200 Balance 1416 / 1416 1319 / 1319 2301 / 2301 Weight 204 lb 3 oz 205 lb Microbiology Reports for the Last 24 Hours: Microbiology 04/29/18 23:50 Sputum - Expectorated Sputum Gram Stain - Final 04/29/18 23:50 Sputum - Expectorated Sputum Sputum Culture - Final Normal Respiratory Dilia Assessment and Plan (1) Acute exacerbation of chronic obstructive airways disease Current visit: Yes Status: Acute Category: Medical Code(s): J44.1 - Chronic obstructive pulmonary disease with (acute) exacerbation (2) Hypercapnic respiratory failure Current visit: Yes Status: Acute Category: Medical Code(s): J96.92 - Respiratory failure, unspecified with hypercapnia (3) Acute respiratory acidosis Current visit: Yes Status: Acute Category: Medical Code(s): E87.2 - Acidosis (4) Tobacco abuse Current visit: Yes Status: Acute Category: Medical Code(s): Z72.0 - Tobacco use (5) History of exposure to noxious chemical Current visit: Yes Status: Acute Category: Medical Code(s): Z77.9 - Other contact with and (suspected) exposures hazardous to health - Assessment and plan all Dx Assessment and Plan for all problems:: He still has some dyspnea with exertion. He was weaned to RA this AM and his sats have been running 92-94%. He is stable to discharge home and will continue on steroids and finish course of antibiotics.
--- NOTE | 2018-05-04 21:51 | Discharge Summary ---
General - General Admission date:: 04/29/18 <Shivam Moon - 05/08/18 23:46> 04/29/18 <Gaby Lowe - 05/04/18 21:51> Discharge date: 05/03/18 <Gaby Lowe - 05/04/18 21:51> HPI HPI: Upon arrival to the ER patient stated that he had been SOA for 3 weeks and it gradually worsened. He stated he had had a "head cold" on and off for several weeks. He had a bad headache for 2 days. This exam patient is unable to give history. Information is obtained from nursing staff, ER record, and indirect comments from a friend. Patient is a 48-year-old male patient who apparently has been sick for the last 2-3 days. He had a cough along with shortness of breath. He did regress to the point where he requested to come to the emergency room. In the emergency room he was placed on 100% oxygen per nonrebreather. ABGs revealed a respiratory acidosis with a PO2 greater than 200. He was given IV Solu-Medrol, DuoNeb treatment, and started on Zithromax and Rocephin. At the time of exam patient is very poorly responsive. He will sluggishly open eyes to commands. Respiratory rate is in the 40s and heart rate is in the 120s. Patient will be placed on BiPAP after ABG is repeated. Apparently patient has had respiratory problems in the past requiring hospitalization. Phone numbers for contacts are not in service and could not obtain additional information. <Gaby Lowe - 05/04/18 21:51> Hospital Course Hospital Course: The Lasix ordered in the emergency room was held. The patient was placed on BiPAP and he was continued on antibiotic treatment. Duo nebs were continued. He was placed on the monitor and continuous O2 monitoring as well. The patient did well on BIPAP and was able to be weaned off and placed on nasal oxygen. Once he awoke, he gave a history of COPD and had also had pneumonia previously. He continued to smoke about a pack a day. He was stable to be moved out of step down. He slowly improved and was able to be weaned off of his oxygen. He was stable to be discharged home on steroids and abx. <Gaby Lowe - 05/04/18 21:51> Objective Vital signs: Temp Pulse Resp BP Pulse Ox 98.1 F 81 18 127/79 92 L 05/03/18 08:00 05/03/18 12:45 05/03/18 08:00 05/03/18 08:00 05/03/18 10:32 <Shivam Moon - 05/08/18 23:46> Temp Pulse Resp BP Pulse Ox 98.1 F 81 18 127/79 92 L 05/03/18 08:00 05/03/18 12:45 05/03/18 08:00 05/03/18 08:00 05/03/18 10:32 <Gaby Lowe - 05/04/18 21:51> Narrative: - Constitutional Comments: Patient is in acute respiratory distress at present. He responds poorly by just opening his eyes to calling of his name. - *Routine HEENT Exam Eye: Present: PERRL - *Routine Neck Exam Absent: carotid bruit, lymphadenopathy, thyromegaly - *Routine Respiratory Exam Comments: Rapid respiratory effort in the 40s with poor inspiratory effort. He has rhonchi throughout. He did - *Routine Cardiovascular Exam Present: RRR - *Routine Abdominal Exam Present: soft, normoactive bowel sounds. Absent: tenderness - *Routine Extremities Exam Present: pulses intact. Absent: edema - *Routine Neurological Exam Present: altered mental status Patient opens eyes in response to verbal stimulation <Gaby Lowe - 05/04/18 21:51> DS: Diagnosis - Discharge Diagnosis (1) Acute exacerbation of chronic obstructive airways disease Status: Acute (2) Hypercapnic respiratory failure Status: Acute (3) Acute respiratory acidosis Status: Acute (4) Tobacco abuse Status: Acute (5) History of exposure to noxious chemical Status: Acute <Gaby Lowe - 05/04/18 21:42> (1) Acute exacerbation of chronic obstructive airways disease Status: Acute (2) Hypercapnic respiratory failure Status: Acute (3) Acute respiratory acidosis Status: Acute (4) Tobacco abuse Status: Acute (5) History of exposure to noxious chemical Status: Acute <Shivam Moon - 05/08/18 23:46> Discharge Plan - Patient Discharge Instructions ACTIVITY: Continue current activity <Gaby Lowe - 05/04/18 21:51> DIET: continue same diet <Gaby Lowe - 05/04/18 21:51> Patient Instructions: DI for Chronic Obstructive Pulmonary Disease <Shivam Mono - 05/08/18 23:46> Forms: <Shivam Moon - 05/08/18 23:46> - Follow up Plan Follow up with: Thomas Jordan MD [Staff Physician] - 05/09/18 <Shivam Moon - 05/08/18 23:46> Disposition: Home, Self-Care <Shivam Moon - 05/08/18 23:46> Prescriptions/Medication Reconciliation: New RX: cefUROXime axetil [Ceftin 500mg Tab (GEQ)] 500 mg PO BID #10 tab RX: predniSONE [Deltasone 10mg tablet] 10 mg PO DIRECTED #21 tab <Shivam Moon - 05/08/18 23:46> - Additional Information Additional Information: Concur with plan for discharge. <Shivam Moon - 05/08/18 23:46>
== END 2018-05-03 14:40 | disposition home or self-care (01) ==
LOC: ER 10:55 → 2ND 12:31 → ICU 16:58 → 2ND 05-01 13:13
PROVIDERS: ADMIT Family Medicine; ATTEND Family Medicine
CPT/HCPCS: J0456

== ENCOUNTER 2018-05-13 19:14 | Inpatient (IN) ==
--- NOTE | 2018-05-13 19:35 | Emergency Department Note ---
ED Disposition <Bharat Cervantes - Last Filed: 05/13/18 20:20> Condition on Discharge: Serious - Critical Care Critical Care Time: No <Andrew Patel Betsy - Last Filed: 05/13/18 21:09> Clinical Impression: Acute exacerbation of chronic obstructive airways disease, Tobacco abuse Hypercapnic respiratory failure Qualifiers: Chronicity: acute on chronic Qualified Code(s): J96.22 - Acute and chronic respiratory failure with hypercapnia Disposition: Admitted As Inpatient Attestation: On 05/13/18, the high probability of a clinically significant, sudden or life threatening deterioration of the following system(s) required my full and direct attention, intervention and personal management. The time I documented below is in addition to time spent performing reported procedures but includes the following listed in this critical care notation. Medical Decision Making - Lab Data Result diagrams: 05/13/18 19:26 05/13/18 19:26 <Bharat Cervantes - Last Filed: 05/13/18 20:20> - Medical Records Medical records reviewed: Yes: I reviewed the patient's medical records. - Grady Inquiry Pt receiving controlled substance: No - Lab Data Lab results reviewed: Yes: I reviewed the patient's lab results. Result diagrams: 05/13/18 19:26 05/13/18 19:26 - Radiology Data #1 Image(s): Chest Image Reviewed: Yes I reviewed the patient's radiology image Preliminary Findings: Abnormal (chronic changes ) - ECG Data Tracing #1 Arrhythmias present: sinus tach Ischemic changes: non-specific ST-T wave changes - Physician Consults Physician Consulted: elisa Reason -: Admission <Andrew Patel Betsy - Last Filed: 05/13/18 21:09> Vital Signs: 05/13/18 19:20 05/13/18 19:22 05/13/18 19:44 Temperature Source Oral Pulse Rate Pulse Rate [Right Brachial] 108 H 93 H Respiratory Rate 20 20 Blood Pressure [Right Arm] 170/97 H 121/81 Blood Pressure Mean [Right Arm] 121 94 Blood Pressure Source [Right Arm] Automatic Cuff Automatic Cuff Blood Pressure Position [Right Arm] Sitting Sitting 02 Sat by Pulse Oximetry 67 L 96 93 L Oxygen Delivery Method Room Air Nasal Cannula Nasal Cannula Oxygen Flow Rate (LPM) 4 05/13/18 19:50 05/13/18 20:30 Temperature Source Pulse Rate 102 H Pulse Rate [Right Brachial] 84 Respiratory Rate 18 Blood Pressure [Right Arm] 123/61 Blood Pressure Mean [Right Arm] 81 Blood Pressure Source [Right Arm] Automatic Cuff Blood Pressure Position [Right Arm] Supine 02 Sat by Pulse Oximetry 92 L Oxygen Delivery Method BiPAP Oxygen Flow Rate (LPM) - Lab Data Lab Results 05/13/18 19:26: WBC 9.2, RBC 5.61, Hgb 16.8, Hct 56.9 H, MCV 101.4 H, MCH 29.9, MCHC 29.5 L, RDW 13.5, Plt Count 239, MPV 7.4, Neut % (Auto) 74.9, Lymph % (Auto) 14.0, [place] % (Auto) 10.1 H, Eos % (Auto) 0.5, Baso % (Auto) 0.5, Neut # (Auto) 6.9, Lymph # (Auto) 1.3, [place] # (Auto) 0.9, Eos # (Auto) 0.1, Baso # (Auto) 0.1 05/13/18 19:26: Sodium 141, Potassium 3.5, Chloride 99, Carbon Dioxide 39 H, Anion Gap 6.5, BUN 8, Creatinine 0.62 L, Estimated Creat Clear 201, Estimated GFR 138, Est GFR ( Amer) 168, Glucose 153 H, Calcium 8.6, Total Bilirubin 0.5, AST 19, ALT 69, Alkaline Phosphatase 160 H, Troponin I < 0.02, Total Protein 8.1, Albumin 3.4, Globulin 4.7 H, Albumin/Globulin Ratio 0.7 L, Lipase 38 L 05/13/18 19:26: Lactate 1.3 05/13/18 19:26: B-Natriuretic Peptide 171 H 05/13/18 19:35: Specimen Source Right radial, O2 % 4.5 lpm nc. 38%, ABG pH 7.31 L, ABG pCO2 79.8 H, ABG pO2 63.7 L, ABG HCO3 39.5 H, ABG Total CO2 42.0 H, ABG O2 Saturation 93, ABG Base Excess 13.3 H, Faisal Test Acceptable Orders (Tests/Meds): ED MEDICATIONS Generic Name Dose Route Start Last Admin Trade Name Freq PRN Reason Stop Dose Admin Sodium Chloride 3 ml 05/13/18 19:57 Sodium Chloride 3% 15ml [facility] 06/12/18 19:56 ONCE PRN INDUCE SPUTUM COLLECTION Discontinued Medications Generic Name Dose Route Start Last Admin Trade Name Josh PRN Reason Stop Dose Admin Albuterol/Ipratropium 3 ml 05/13/18 19:30 05/13/18 19:49 Duoneb 3ml [facility] 05/13/18 19:31 3 ml ONCE ONE Administration Methylprednisolone Sodium Succinate 125 mg 05/13/18 19:30 05/13/18 19:39 Solu-Medrol 125mg/2ml Vial IV 05/13/18 19:31 125 mg ONCE ONE Administration ORDERS Category Date Time Status XR chest portable Stat Exams 05/13/18 19:29 Taken Blood Culture Stat Micro 05/13/18 19:26 Ordered Sputum Culture & Gram Stain Stat Micro 05/13/18 19:57 Ordered ECG Request by /Christiano Stat Y 05/13/18 19:29 Ordered Medical Decision Narrative: care to Dr Patel at 20:00 (Bharat Cervantes) General Adult HPI - General Mode of Arrival: Ambulatory Source of Information: Patient Limitations: No Limitations Description of Symptoms (Recalled from ER Triage Doc. by RN): Pt states he has SOA, that started sun. he says he was in the hospital for copd exacerbation for a week and went home on sunday, Pt denies any new cough or fever. <Bharat Cervantes - Last Filed: 05/13/18 20:20> - History of Present Illness Onset (ago): day(s) Severity: moderate Associated symptoms: denies other symptoms Treatments prior to arrival: none <Andrew Patel - Last Filed: 05/13/18 21:09> - General Chief complaint: Shortness of Breath/Dyspnea Stated complaint: SOB Time Seen by Provider: 05/13/18 19:32 - History of Present Illness HPI narrative: mild to mod recurrent shortness of breath today, hx recent hospitalization for copd, no fever, O2sat 60% RA, now 95% on 2 liters, +chest tightness (Bharat Cervantes) - Related Data Previous Rx's Medication Instructions Recorded cefUROXime axetil [Ceftin 500mg 500 mg PO BID #10 tab 05/03/18 Tab (GEQ)] predniSONE [Deltasone 10mg tablet] 10 mg PO DIRECTED #21 tab 05/03/18 Allergies Allergy/AdvReac Type Severity Reaction Status Date / Time No Known Allergies Allergy Verified 04/29/18 12:45 [facility] History I have reviewed the patient's past medical history: Yes Medical History: Reports:: Chronic Obstructive Pulmonary Disease (COPD) Denies:: Diabetes Mellitus Type 1, Diabetes Mellitus Type 2 - Social History Smoking Status: Current every day smoker Tobacco Type: cigarettes # Packs/Day (cigarettes): 1 Alcohol Intake: never Occupational Status: employed - Psychiatric History Expresses thoughts of harming self/others: None Suicide Plan Description: No Plan Family Hx:: Unable to obtain <Bharat Cervantes - Last Filed: 05/13/18 20:20> ROS Obtained: Yes Systems reviewed as appropriate & no additional complaints - Constitutional Constitutional: Reports fatigue - Eyes Eyes: Denies change in vision - ENT Ears, Nose, Mouth, and Throat: Denies dizziness - Cardiovascular Cardiovascular: Denies chest pain - Respiratory Respiratory: Yes dyspnea - Gastrointestinal Gastrointestingal: Denies: vomiting - Musculoskeletal Musculoskeletal: Denies muscle weakness - Integumentary/Breasts Skin/Breast: Denies rash - Neurologic Neurologic: Denies dizziness <Bharat Cervantes - Last Filed: 05/13/18 20:20> Physical Exam - General General appearance: alert, in no apparent distress - Head Head exam: atraumatic - Eye Eye exam: Present: EOMI - ENT ENT exam: Present: normal exam - Neck Neck exam: Present: normal inspection - Chest Chest inspection: Present: normal inspection - Respiratory Respiratory exam: Present: wheezes. Absent: stridor - Cardiovascular Cardiovascular exam: Present: regular rate, normal rhythm - Abdominal Exam Abdominal exam: Present: soft. Absent: tenderness - Extremities Exam Extremities exam: Present: full ROM - Back Exam Back exam: Absent: vertebral tenderness - Neurological Exam Neurological exam: Present: alert, oriented X3 - Psychiatric Psychiatric exam: Present: normal affect, normal mood - Skin Skin exam: Present: warm, dry <Bharat Cervantes - Last Filed: 05/13/18 20:20>
[2018-05-13 19:37] LABS: ABG Base Excess 13.3 mmol/L (-2.4-2.3); ABG HCO3 39.5 mmhg (22.0-26.0); ABG Oxygen Saturation 93 % (90-100); ABG PH 7.31 mmol/L (7.35-7.45); ABG PO2 63.7 mmhg (80-100)
[2018-05-13 19:39] LABS: Allen's Test Acceptable; Oxygen 4.5 LPM NC. 38% %
[2018-05-13 19:40] LABS: ABG PCO2 79.8 mmhg (35.0-45.0)
[2018-05-13 19:51] LABS: Basophils # 0.1 K/mm3 (0-0.2); Basophils % 0.5 % (0.1-2.0); Eosinophils # 0.1 K/mm3 (0.0-0.4); Eosinophils % 0.5 % (0.1-12.0); Hematocrit 56.9 % (42.0-52.0); Hemoglobin 16.8 g/dL (14.1-18.0); Lymphocytes # 1.3 K/mm3 (0.7-4.5); Mean Corpuscular HGB Conc 29.5 g/dL (31.8-35.4); Mean Corpuscular Hemoglobin 29.9 pg (27.0-31.2); Mean Corpuscular Volume 101.4 fl (80-94); Mean Platelet Volume 7.4 fl (7.4-10.4); Monocytes # 0.9 K/mm3 (0.1-1.0); Monocytes % 10.1 % (1.7-9.3); Neutrophils # 6.9 K/mm3 (1.8-7.8); Neutrophils % 74.9 % (37.0-80.0); Platelet Count 239 K/mm3 (142-424); Red Blood Count 5.61 M/mm3 (4.60-6.20); Red Cell Distribution Width 13.5 % (11.5-17.5); White Blood Count 9.2 K/mm3 (4.8-10.8)
[2018-05-13 19:56] LABS: Alanine Aminotransferase 69 U/L (12-78); Albumin Level 3.4 gm/dL (3.4-5.0); Albumin/Globulin Ratio 0.7 (1.1-1.8); Alkaline Phosphatase 160 U/L (46-116); Anion Gap 6.5 mEq/L (5-15); Aspartate Amino Transferase 19 U/L (15-37); Bilirubin,Total 0.5 mg/dL (0.2-1.0); Blood Urea Nitrogen 8 mg/dL (7-18); Calcium 8.6 mg/dL (8.5-10.1); Carbon Dioxide 39 mmol/L (21.0-32.0); Chloride 99 mmol/L (98-107); Globulin 4.7 gm/dl (1.3-3.2); Glucose 153 mg/dL (74-106); Lipase 38 u/L (73-393); Potassium 3.5 mmoL/L (3.5-5.1); Sodium 141 mmol/L (136-145); Total Protein,Serum 8.1 gm/dL (6.4-8.2)
[2018-05-14 07:02] LABS: Anion Gap 4.6 mEq/L (5-15); Potassium 4.6 mmoL/L (3.5-5.1)
[2018-05-14 07:15] LABS: Basophils % 0.1 % (0.1-2.0); Eosinophils % 0.3 % (0.1-12.0); Hematocrit 54.3 % (42.0-52.0); Hemoglobin 15.5 g/dL (14.1-18.0); Lymphocytes # 0.4 K/mm3 (0.7-4.5); Lymphocytes % 6.3 % (10-50); Mean Corpuscular HGB Conc 28.5 g/dL (31.8-35.4); Mean Corpuscular Hemoglobin 29.6 pg (27.0-31.2); Mean Corpuscular Volume 104.1 fl (80-94); Mean Platelet Volume 7.4 fl (7.4-10.4); Monocytes # 0.2 K/mm3 (0.1-1.0); Monocytes % 2.4 % (1.7-9.3); Neutrophils # 6.1 K/mm3 (1.8-7.8); Platelet Count 216 K/mm3 (142-424); Red Blood Count 5.22 M/mm3 (4.60-6.20); Red Cell Distribution Width 13.7 % (11.5-17.5); White Blood Count 6.7 K/mm3 (4.8-10.8)
--- NOTE | 2018-05-14 07:35 | Pharmacy Consult Notes ---
[facility] Pharmacy VTE Monitoring - Patient Demographics Admission date: 05/13/18 Report Date: 05/14/18 Time: 07:35 Allergies/Adverse Reactions: Patient Allergies No Known Allergies Allergy (Verified 04/29/18 12:45) Height: 1.68 m Weight: 95.793 kg Patient Problems: Current Active Problems Acute exacerbation of chronic obstructive airways disease (Acute) Tobacco abuse (Acute) Hypercapnic respiratory failure (Acute) - VTE Risk Labs: VTE Related Lab Results Hgb 15.5 g/dL (14.1-18.0) 05/14/18 06:35 Hct 54.3 % (42.0-52.0) H 05/14/18 06:35 Plt Count 216 K/mm3 (142-424) 05/14/18 06:35 BUN 9 mg/dL (7-18) 05/14/18 06:35 Creatinine 0.66 mg/dL (0.70-1.30) L 05/14/18 06:35 Estimated Creat Clear 185 mL/min (50-200) 05/14/18 06:35 Was VTE Risk Assessment Performed: Yes VTE Score: 4 VTE Risk Level: Low Risk - Prophylaxis VTE Prophylaxis Ordered?: Yes Types of VTE Prophylaxis: TEDS Knee High Location of Applied Device: Bilateral Lower Extremeties - VTE Diagnosis Confirmed Treatment or plan recommended: Continue Current Treatment
[2018-05-14 07:55] LABS: Lymphocytes % 1 % (10-50); Monocytes % 1 % (2-9); Neutrophils % 96 % (42-76); Total Cells Counted 100
[2018-05-14 07:57] LABS: Stomatocytes 3+
--- NOTE | 2018-05-14 10:14 | History & Physical Report ---
*Admission Date: 05/13/18 *Chief complaint: SOA *History of present illness: 48yo M recently admitted to [facility] for Acute Hypercarbic respiratory failure who presented to the ER for Dyspnea. He was seen last month for similar Symptoms. Presents to ER with SOA, Cough, mild confusion worsening since DC on 05/04. Initial work up in ER with hypercarbia, CXR consistent with COPD exac vs PNA. started on BiPAP and Steroids. Medicine consulted to admit and manage further. Requested patient be started on Antibiotics. Required Supplemental O2 to meet goal of low 90s. Denied fevers, N/V/D, rash, [place], Chest pain. C/o fullness in Abdomen like bloating and inability to catch his breath. Of not, not discharged with inhalers. Was prescribed Ceftin and Steroids (did not fill due to cost). Sent home without O2. Patient does not have insurance, works for the [employer]. Smokes 1 ppd, no family Hx of Lung or liver disease [facility] History I have reviewed the patient's past medical history: Yes Medical History: Reports:: Chronic Obstructive Pulmonary Disease (COPD) Denies:: Cancer, Diabetes Mellitus Type 1, Diabetes Mellitus Type 2, MRSA Other Surgeries: Yes: Other (INTESTINAL SX UNSURE WHAT) Amputation: No Fractures: No - *Social History Educational Level: Completed Grade School Smoking Status: Current every day smoker Tobacco Type: cigarettes # Packs/Day (cigarettes): 1 Alcohol Intake: never Occupational Status: employed Household Members: other - Psychiatric History Expresses thoughts of harming self/others: None Suicide Plan Description: No Plan *Family Hx:: No significant family history Review of Systems - Review of Systems Review of systems:: pertinent systems reviewed and negative unless documented below - *Neurologic Denies dizziness Meds Home Medications Medication Instructions Recorded Confirmed Type No Known Home Medications 05/13/18 05/13/18 History Allergies Allergy/AdvReac Type Severity Reaction Status Date / Time No Known Allergies Allergy Verified 04/29/18 12:45 Exam Vital signs and Labs for Last 24 Hours: Temp Pulse Resp BP Pulse Ox 98.3 F 91 H 18 123/78 97 05/14/18 08:00 05/14/18 08:00 05/14/18 08:00 05/14/18 08:00 05/14/18 08:00 Laboratory Results - last 24 hr 05/13/18 19:26: WBC 9.2, RBC 5.61, Hgb 16.8, Hct 56.9 H, MCV 101.4 H, MCH 29.9, MCHC 29.5 L, RDW 13.5, Plt Count 239, MPV 7.4, Neut % (Auto) 74.9, Lymph % (Auto) 14.0, [place] % (Auto) 10.1 H, Eos % (Auto) 0.5, Baso % (Auto) 0.5, Neut # (Auto) 6.9, Lymph # (Auto) 1.3, [place] # (Auto) 0.9, Eos # (Auto) 0.1, Baso # (Auto) 0.1 05/13/18 19:26: Sodium 141, Potassium 3.5, Chloride 99, Carbon Dioxide 39 H, Anion Gap 6.5, BUN 8, Creatinine 0.62 L, Estimated Creat Clear 201, Estimated GFR 138, Est GFR ( Amer) 168, Glucose 153 H, Calcium 8.6, Total Bilirubin 0.5, AST 19, ALT 69, Alkaline Phosphatase 160 H, Troponin I < 0.02, Total Protein 8.1, Albumin 3.4, Globulin 4.7 H, Albumin/Globulin Ratio 0.7 L, Lipase 38 L 05/13/18 19:26: Lactate 1.3 05/13/18 19:26: B-Natriuretic Peptide 171 H 05/13/18 19:35: Specimen Source Right radial, O2 % 4.5 lpm nc. 38%, ABG pH 7.31 L, ABG pCO2 79.8 H, ABG pO2 63.7 L, ABG HCO3 39.5 H, ABG Total CO2 42.0 H, ABG O2 Saturation 93, ABG Base Excess 13.3 H, Faisal Test Acceptable 05/14/18 00:30: Troponin I 0.02 05/14/18 03:15: Troponin I < 0.02 05/14/18 06:35: WBC 6.7 D, RBC 5.22, Hgb 15.5, Hct 54.3 H, MCV 104.1 H, MCH 29.6, MCHC 28.5 L, RDW 13.7, Plt Count 216, MPV 7.4, Neut % (Auto) 91.0 H, Lymph % (Auto) 6.3 L, [place] % (Auto) 2.4, Eos % (Auto) 0.3, Baso % (Auto) 0.1, Neut # (Auto) 6.1, Lymph # (Auto) 0.4 L, [place] # (Auto) 0.2, Eos # (Auto) 0.0, Baso # (Auto) 0.0, Total Counted 100, Neutrophils % (Manual) 96 H, Lymphocytes % (Ma nual) 1 L, Atypical Lymphs % 2.0, Monocytes % (Manual) 1 L, Platelet Estimate Normal, Stomatocytes 3+ 05/14/18 06:35: Sodium 140, Potassium 4.6 D, Chloride 99, Carbon Dioxide 41 H*, Anion Gap 4.6 L, BUN 9, Creatinine 0.66 L, Estimated Creat Clear 185, Estimated GFR 129, Est GFR ( Amer) 156, Glucose 158 H, Calcium 8.0 L I & O for Last 24 hours: Intake & Output 05/11/18 05/12/18 05/13/18 05/14/18 23:59 23:59 23:59 23:59 Intake Total 130 / 130 903 / 903 Output Total 400 / 400 Balance 130 / 130 503 / 503 Weight 95.906 kg 95.793 kg - *Routine HEENT Exam Head: Present: normocephalic, atraumatic Eye: Present: EOMI, PERRL ENT: Present: mucous membranes moist - *Routine Neck Exam Present: supple. Absent: lymphadenopathy, thyromegaly - *Routine Respiratory Exam Present: accessory muscle use, CTA bilaterally, prolonged expiratory phase, rales, wheezes, crackles, distant breath sounds, diminished air movement - *Routine Cardiovascular Exam Present: RRR, Normal S1, Normal S2. Absent: murmur - *Routine Abdominal Exam Present: soft, normoactive bowel sounds (protuberant) - *Routine Rectal Exam Patient deferred: visual exam - *Routine Exam Patient deferred: penile exam - *Routine Extremities Exam Absent: cyanosis, clubbing, edema - *Routine Skin Exam Present: intact. Absent: cyanosis, erythema - *Routine Neurological Exam Present: alert, oriented X3. Absent: altered mental status Assessment and Plan (1) Acute exacerbation of chronic obstructive airways disease Current visit: Yes Status: Acute Category: Medical Code(s): J44.1 - Chronic obstructive pulmonary disease with (acute) exacerbation unable to complete course of treatment form last hospitalization. - transition to PO abx and steroids - continue Supplemental O2, goal >88 while asleep and 92 while awake - BiPAP at night - resting O2 84%, needs Home O2. (2) Hypercapnic respiratory failure Current visit: Yes Status: Acute Qualifiers: Chronicity: acute on chronic Qualified Code(s): J96.22 - Acute and chronic respiratory failure with hypercapnia Category: Medical Code(s): J96.92 - Respiratory failure, unspecified with hypercapnia (3) Tobacco abuse Current visit: Yes Status: Acute Category: Medical Code(s): Z72.0 - Tobacco use - Assessment and plan all Dx Assessment and Plan for all problems:: lack of insurance complicates all aspects of care. Patient has progressive lung disease and will need continued medical care. Care management consulted appreciate recs.
--- NOTE | 2018-05-14 20:13 | Cardiology Report ---
PROCEDURE: 2-D M-mode and color Doppler study INDICATIONS FOR THE TEST: Chest pain COPD+ Heart Murmur Tobacco Smoking+ Palpitations Fatigue Syncope Edema Hypertension Diabetes Mellitus Rheumatic Fever SOB+SERRANO Obesity Hyperlipidemia Family History HD Additional History BIPAP PATIENT INFORMATION HEIGHT: 65 WEIGHT:215 GENDER: Male B/P121/81: 2-D/M-MODE INTERPRETATION: 2-D MEASUREMENTS OBSERVED VALUES IN CMS Right Ventricular Dimension (RVDd) 2.7 Interventricular Septum (Thickness)(IVsd) 1.9 Left Ventricular Internal Dimensions(LVIDd) 4.2 Left Ventricular Posterior Wall (Thickness)(LVPWd) 1.0 Aortic Root 3.0 Aortic Cusp Separation 2.0 Left Atrial Dimensions (LAD) 3.8 2D 1. Left atrium is mildly enlarged, left ventricle is normal size, there is no concentric left ventricular hypertrophy, visually estimated ejection fraction 55-60% with no regional wall motion abnormality. 2. The right atrium and right ventricle are mildly enlarged with normal contractility. 3. The aortic valve is minimally thickened and fibrosed. 4. The mitral and tricuspid valvular grossly normal. 5. The pulmonic valve is poorly visualized. 6. No significant pericardial effusion noted. DOPPLER INTERROGATION: Doppler interrogation of the aortic, mitral and tricuspid valvular presence of mild mitral and tricuspid regurgitation, tricuspid regurgitation jet velocity is inadequate for calculation of the right ventricular systolic pressure, diastolic parameters are inconclusive. Conclusions: 1. Mildly enlarged left atrium, normal left ventricular size, there is no concentric left ventricular hypertrophy, visually estimated ejection fraction 55-60% with no regional wall motion abnormality, diastolic parameters are inconclusive. 2. Mildly enlarged right ventricle with normal contractility. 3. Mild mitral and tricuspid regurgitation 4. No significant pericardial effusion noted.
[2018-05-15 06:08] LABS: Basophils % 0.2 % (0.1-2.0); Eosinophils % 0.3 % (0.1-12.0); Hematocrit 50.5 % (42.0-52.0); Hemoglobin 14.4 g/dL (14.1-18.0); Lymphocytes # 1.6 K/mm3 (0.7-4.5); Lymphocytes % 14.8 % (10-50); Mean Corpuscular HGB Conc 28.6 g/dL (31.8-35.4); Mean Corpuscular Hemoglobin 29.4 pg (27.0-31.2); Mean Corpuscular Volume 102.6 fl (80-94); Mean Platelet Volume 7.6 fl (7.4-10.4); Monocytes # 1.2 K/mm3 (0.1-1.0); Monocytes % 11.3 % (1.7-9.3); Neutrophils # 7.9 K/mm3 (1.8-7.8); Neutrophils % 73.4 % (37.0-80.0); Platelet Count 223 K/mm3 (142-424); Red Blood Count 4.92 M/mm3 (4.60-6.20); Red Cell Distribution Width 13.7 % (11.5-17.5); White Blood Count 10.7 K/mm3 (4.8-10.8)
[2018-05-15 06:17] LABS: Anion Gap 4.2 mEq/L (5-15); Calcium 7.8 mg/dL (8.5-10.1); Potassium 4.2 mmoL/L (3.5-5.1)
--- NOTE | 2018-05-15 07:49 | Progress Note ---
Internal Medicine - PN: Subj *Date: 05/15/18 *Time: 07:47 Interval history: Patient continues to have some shortness of air off oxygen, but was able to tolerate being off BiPAP through the night. Continue to have a productive cough. Exam Vital signs and Labs for Last 24 Hours: Temp Pulse Resp BP Pulse Ox 98.7 F 83 16 105/62 L 86 L 05/15/18 04:00 05/15/18 05:55 05/15/18 04:00 05/15/18 04:00 05/15/18 07:25 Laboratory Results - last 24 hr 05/14/18 06:35: Total Counted 100, Neutrophils % (Manual) 96 H, Lymphocytes % (Manual) 1 L, Atypical Lymphs % 2.0, Monocytes % (Manual) 1 L, Platelet Estimate Normal, Stomatocytes 3+ 05/15/18 05:39: WBC 10.7 D, RBC 4.92, Hgb 14.4, Hct 50.5, MCV 102.6 H, MCH 29.4, MCHC 28.6 L, RDW 13.7, Plt Count 223, MPV 7.6, Neut % (Auto) 73.4, Lymph % (Auto) 14.8, [place] % (Auto) 11.3 H, Eos % (Auto) 0.3, Baso % (Auto) 0.2, Neut # (Auto) 7.9 H, Lymph # (Auto) 1.6, [place] # (Auto) 1.2 H, Eos # (Auto) 0.0, Baso # (Auto) 0.0 05/15/18 05:39: Sodium 139, Potassium 4.2, Chloride 100, Carbon Dioxide 39 H, Anion Gap 4.2 L, BUN 14 D, Creatinine 0.47 L D, Estimated Creat Clear 266, Estimated GFR 191, Est GFR ( Amer) 231 D, Glucose 115 H D, Calcium 7.8 L I & O for Last 24 hours: Intake & Output 05/12/18 05/13/18 05/14/18 05/15/18 11:59 11:59 11:59 11:59 Intake Total 1033 / 1033 1946 / 1946 Output Total 400 / 400 775 / 775 Balance 633 / 633 1171 / 1171 Weight 211 lb 3 oz 215 lb 6 oz Microbiology Reports for the Last 24 Hours: Microbiology 12/04/18 11:04 Sputum - Expectorated Sputum Gram Stain - Final Narrative: Patient is pleasant and talkative. Oropharynx clear. No JVD Lungs have rhonchi in both bases, expiratory wheezes noted. Fairly limited air movement. Abdomen soft nontender, heart rate regular. No edema or clubbing. Assessment and Plan (1) Acute exacerbation of chronic obstructive airways disease Current visit: Yes Status: Acute Category: Medical Code(s): J44.1 - Chronic obstructive pulmonary disease with (acute) exacerbation (2) Hypercapnic respiratory failure Current visit: Yes Status: Acute Qualifiers: Chronicity: acute on chronic Qualified Code(s): J96.22 - Acute and chronic respiratory failure with hypercapnia Category: Medical Code(s): J96.92 - Respiratory failure, unspecified with hypercapnia (3) Tobacco abuse Current visit: Yes Status: Acute Category: Medical Code(s): Z72.0 - Tobacco use - Assessment and plan all Dx Assessment and Plan for all problems:: Significant disease. Plan will be to continue IV therapy through the day to see if his oxygen saturations will improve. We will prescribe Ventolin inhaler so that he can have an inhaler on discharge. On discharge I will dispense inhaler samples from the office so this can be of assistance to him. I strongly counseled him that quitting smoking would not only help his financial situation but would significantly improve his lung disease. This is absolutely imperative for him to have significant hope of any kind of lung function improvement.
--- NOTE | 2018-05-16 08:58 | Discharge Summary ---
General - General Admission date:: 05/13/18 Discharge date: 05/16/18 HPI HPI: 48yo M recently admitted to [facility] for Acute Hypercarbic respiratory failure who presented to the ER for Dyspnea. He was seen last month for similar Symptoms. Presents to ER with SOA, Cough, mild confusion worsening since DC on 05/04. Initial work up in ER with hypercarbia, CXR consistent with COPD exac vs PNA. started on BiPAP and Steroids. Medicine consulted to admit and manage further. Requested patient be started on Antibiotics. Required Supplemental O2 to meet goal of low 90s. Denied fevers, N/V/D, rash, [place], Chest pain. C/o fullness in Abdomen like bloating and inability to catch his breath. Of not, not discharged with inhalers. Was prescribed Ceftin and Steroids (did not fill due to cost). Sent home without O2. Patient does not have insurance, works for [employer]. Smokes 1 ppd, no family Hx of Lung or liver disease Hospital Course Hospital Course: Patient was admitted for IV antibiotics. He was given infusions of Levaquin and restarted on steroids. Duonebs were administered and he was transitioned to an albuterol inhaler. Shortness of breath has improved. He continues to require oxygen, RA saturations 87% this morning. He has had a total of 8 days of IV antibiotics which is sufficient treatment. Care management consulted for financial assistance due to his limited income and resources. Patient is tolerating oral intake well and is ready to be discharged home on oxygen. Discharge home of oxygen at 2L/NC on oxygen. Start Breo. Send albuterol inhaler home with patient. Prednisone 20 mg po BID x 7 days. See medication reconciliation for complete list. FU with myself in one week. Establish at [facility] with Dr. Sexton in 2 weeks. Objective Vital signs: Temp Pulse Resp BP Pulse Ox 97.7 F 83 22 130/68 87 L 05/16/18 08:00 05/16/18 08:00 05/16/18 08:00 05/16/18 08:00 05/16/18 08:00 Narrative: Alert and oriented x3. Rate and rhythm regular. No LE edema. Lung sounds clear, diminished air movement, especially in bases. Abdomen soft, nontender Results Labs on day of discharge: Preliminary micro results at discharge 12/04/18 11:04 Sputum Culture - Preliminary Sputum - Expectorated Sputum 05/13/18 19:26 Blood Culture - Preliminary Blood NO GROWTH AFTER 48 HOURS 05/13/18 19:26 Blood Culture - Preliminary Blood NO GROWTH AFTER 48 HOURS DS: Diagnosis - Discharge Diagnosis (1) Acute exacerbation of chronic obstructive airways disease Status: Acute (2) Hypercapnic respiratory failure Status: Acute (3) Tobacco abuse Status: Acute Discharge Plan - Patient Discharge Instructions ACTIVITY: Continue current activity DIET: continue same diet Patient Instructions: DI for Chronic Obstructive Pulmonary Disease, Respiratory Failure, How to Quit Tobacco Products - Follow up Plan Follow up with: Livia Loya APRN [Nurse Practitioner] - 1 week Disposition: Home, Self-Care Prescriptions/Medication Reconciliation: New Fluticasone/Vilanterol [Breo Ellipta 100-25 Mcg INH] 1 each IH DAILY 30 Days #1 inh predniSONE [Deltasone 20mg tablet] 20 mg PO BID 7 Days #14 tab Albuterol Sulfate [Proventil-HFA 90mcg/puff Inh] 2 puffs IH Q6HP PRN puff PRN Reason: Shortness Of Breath
== END 2018-05-16 13:07 | disposition home or self-care (01) ==
LOC: ER 19:14 → 2ND 20:34
PROVIDERS: ADMIT Internal Medicine Adolescent Medicine; ATTEND Internal Medicine Adolescent Medicine
CPT/HCPCS: J1956

== ENCOUNTER 2019-01-13 16:50 | Inpatient (IN) ==
--- NOTE | 2019-01-13 17:27 | Emergency Department Note ---
ED Disposition Clinical Impression: Severe sepsis, Acute respiratory failure with hypoxia, Bilateral pneumonia Disposition: Admitted As Inpatient Condition on Discharge: Serious Referrals: Provider,Referral, [Primary Care Provider] - Time of Disposition: 18:49 - Critical Care Critical Care Time: No Attestation: On 01/13/19, the high probability of a clinically significant, sudden or life threatening deterioration of the following system(s) required my full and direct attention, intervention and personal management. The time I documented below is in addition to time spent performing reported procedures but includes the following listed in this critical care notation. Medical Decision Making - Medical Records Medical records reviewed: Yes: I reviewed the patient's medical records. - Grady Inquiry Pt receiving controlled substance: No Grady was queried for this patient: No Vital Signs: 01/13/19 17:08 01/13/19 17:15 01/13/19 17:56 Temperature 98.2 F Temperature Source Oral Pulse Rate 105 H Pulse Rate [Right] 116 H 107 H Respiratory Rate 22 24 Blood Pressure [Right Arm] 138/94 H 131/80 Blood Pressure Mean [Right Arm] 108 97 Blood Pressure Source [Right Arm] Automatic Cuff Automatic Cuff Blood Pressure Position [Right Arm] Sitting Sitting 02 Sat by Pulse Oximetry 60 L 100 93 L Oxygen Delivery Method Room Air Non-Rebreather Nasal Cannula Oxygen Flow Rate (LPM) 01/13/19 18:30 01/13/19 18:35 Temperature Temperature Source Pulse Rate Pulse Rate [Right] 103 H 103 H Respiratory Rate 24 Blood Pressure [Right Arm] 133/76 133/76 Blood Pressure Mean [Right Arm] 95 95 Blood Pressure Source [Right Arm] Automatic Cuff Automatic Cuff Blood Pressure Position [Right Arm] Sitting Sitting 02 Sat by Pulse Oximetry 92 L 93 L Oxygen Delivery Method Nasal Cannula Nasal Cannula Oxygen Flow Rate (LPM) 4 - Lab Data Lab results reviewed: Yes: I reviewed the patient's lab results. Lab Results 01/13/19 17:15: D-Dimer < 100 01/13/19 17:15: WBC 9.1, RBC 5.44, Hgb 16.4, Hct 55.2 H, MCV 101.4 H, MCH 30.1, MCHC 29.7 L, RDW 13.6, Plt Count 193, MPV 8.5, Neut % (Auto) 59.6, Lymph % (Auto) 29.6, [place] % (Auto) 10.3 H, Eos % (Auto) 0.3, Baso % (Auto) 0.3, Neut # (Auto) 5.4, Lymph # (Auto) 2.7, [place] # (Auto) 0.9, Eos # (Auto) 0.0, Baso # (Aut o) 0.0 01/13/19 17:15: Sodium 141, Potassium 4.7, Chloride 99, Carbon Dioxide 40 H, Anion Gap 6.7, BUN 14, Creatinine 0.68 L, Estimated Creat Clear 192, Estimated GFR 124, Est GFR ( Amer) 151, Glucose 158 H, Calcium 8.4 L 01/13/19 17:33: Specimen Source Right radial, O2 % 36, ABG pH 7.23 L*, ABG pCO2 99.2 H, ABG pO2 64.7 L, ABG HCO3 40.9 H, ABG Total CO2 43.9 H, ABG O2 Saturation 91, ABG Base Excess 13.4 H, Faisal Test Acceptable 01/13/19 17:58: Lactate 0.5 Result diagrams: 01/13/19 17:15 01/13/19 17:15 Orders (Tests/Meds): ED MEDICATIONS Generic Name Dose Route Start Last Admin Trade Name Freq PRN Reason Stop Dose Admin Levofloxacin/Dextrose 750 mg in 150 mls @ 100 mls/hr 01/13/19 18:15 Levofloxacin 750mg/150ml Premix IV 01/27/19 18:14 Q24H LORENA Protocol Piperacillin Sod/Tazobactam 100 mls @ 200 mls/hr 01/13/19 18:45 Sod 4.5 gm/ Sodium Chloride IV 01/27/19 18:44 Q6H LORENA Protocol Discontinued Medications Generic Name Dose Route Start Last Admin Trade Name Freq PRN Reason Stop Dose Admin Albuterol/Ipratropium 3 ml 01/13/19 17:18 01/13/19 17:15 Duoneb 3ml Neb IH 01/13/19 17:19 3 ml ONCE ONE Administration Methylprednisolone Sodium Succinate 125 mg 01/13/19 17:18 01/13/19 17:32 Solu-Medrol 125mg/2ml Vial IV 01/13/19 17:19 125 mg ONCE ONE Administration ORDERS Category Date Time Status CXR 2 view (NOT portable) [XR chest 2V] Stat Exams 01/13/19 17:34 Taken Blood Culture Stat Micro 01/13/19 17:50 Received - Physician Consults Physician Consulted: elisa Time: 18:49 Reason -: Admission General Adult HPI - General Chief complaint: Shortness of Breath/Dyspnea Stated complaint: SOA Time Seen by Provider: 01/13/19 17:20 Mode of Arrival: Ambulatory Source of Information: Patient Limitations: No Limitations Description of Symptoms (Recalled from ER Triage Doc. by RN): short of breath for the last three weeks that has been getting worse. pt has a hsitory of COPD. - History of Present Illness HPI narrative: dyspnea, chills, headaches for 3 weeks. copd history. no recent steroids - Related Data Home Medications Medication Instructions Recorded Confirmed Mometasone/Formoterol [Dulera 100 8.8 gm IH DAILY 08/27/18 08/27/18 Mcg/5 Mcg Inhaler] Fluticasone/Umeclidin/Vilanter 1 each IH DAILY 01/13/19 01/13/19 [Trelegy Ellipta 100-62.5-25] Previous Rx's Medication Instructions Recorded Albuterol Sulfate [Proventil-HFA 2 puffs IH Q6HP PRN puff 05/16/18 90mcg/puff Inh] Allergies Allergy/AdvReac Type Severity Reaction Status Date / Time No Known Allergies Allergy Verified 04/29/18 12:45 [facility] History - Hepatitis A Screen Drug use history?: No High risk sexual behaviors?: No History of sexually transmitted infection?: No Currently employed?: No Childcare worker?: No Do you have indoor plumbing?: Yes Do you have electricity?: Yes Attestation statement:: This patient has been screened for Hepatitis A risk factors. I have reviewed the patient's past medical history: Yes Medical History: Reports:: Chronic Obstructive Pulmonary Disease (COPD) Denies:: Cancer, Diabetes Mellitus Type 1, Diabetes Mellitus Type 2, MRSA Other Surgeries: Yes: Other (INTESTINAL SX UNSURE WHAT) Amputation: No Fractures: No - Social History Educational Level: Attended High School Smoking Status: Current every day smoker Tobacco Type: cigarettes # Packs/Day (cigarettes): 1 Alcohol Intake: former Alcohol Intake Frequency:: other Substance Use Type: crack/cocaine Last Used Substance: unknown Occupational Status: employed Household Members: other Family Hx:: No significant family history ROS Obtained: Yes All systems reviewed & no additional complaints - Constitutional Constitutional: Reports chills - ENT Ears, Nose, Mouth, and Throat: Denies sinus pain, Denies sinus pressure, Denies sore throat - Cardiovascular Cardiovascular: Denies chest pain, Denies chest pain at rest, Reports dyspnea - Respiratory Respiratory: Yes change in phlegm color, Yes chest congestion, Yes cough, Yes dyspnea, No coughing up blood, No pain on inspiration - Gastrointestinal Gastrointestingal: Denies: abdominal pain - Musculoskeletal Musculoskeletal: Denies abnormal gait, Denies joint pain, Denies joint stiffness, Denies joint swelling - Integumentary/Breasts Skin/Breast: Denies rash, Denies skin pain - Neurologic Neurologic: Denies behavioral changes, Denies confusion, Denies convulsions - Hematologic/Lymphatic Henatologic/Lymphatic: Denies easy bleeding, Denies easy bruising Physical Exam - General General appearance: alert - Head Head exam: atraumatic, normocephalic, normal inspection - Eye Eye exam: Present: normal appearance, PERRL, EOMI - ENT ENT exam: Present: normal exam, normal oropharynx, mucous membranes moist, TM's normal bilaterally, normal external ear exam - Chest Chest inspection: Present: normal inspection - Respiratory Respiratory exam: Present: respiratory distress, wheezes, other (mild). Absent: normal lung sounds bilaterally - Cardiovascular Cardiovascular exam: Present: regular rate, normal rhythm - Abdominal Exam Abdominal exam: Absent: soft, distention, tenderness - Extremities Exam Extremities exam: Absent: normal inspection, full ROM, tenderness - Neurological Exam Neurological exam: Present: alert, oriented X3 - Psychiatric Psychiatric exam: Present: normal affect, normal mood - Skin Skin exam: Present: warm, dry, intact, normal color
[2019-01-13 17:54] LABS: ABG Base Excess 13.4 mmol/L (-2.4-2.3); ABG HCO3 40.9 mmhg (22.0-26.0); ABG Oxygen Saturation 91 % (90-100); ABG PH 7.23 mmol/L (7.35-7.45); ABG PO2 64.7 mmhg (80-100); ABG TCO2 43.9 mmhg (23-27)
[2019-01-13 17:56] LABS: Allen's Test Acceptable; Oxygen 36 %
[2019-01-13 17:58] LABS: ABG PCO2 99.2 mmhg (35.0-45.0)
[2019-01-13 18:02] LABS: Basophils % 0.3 % (0.1-2.0); Eosinophils % 0.3 % (0.1-12.0); Hematocrit 55.2 % (42.0-52.0); Hemoglobin 16.4 g/dL (14.1-18.0); Lymphocytes # 2.7 K/mm3 (0.7-4.5); Lymphocytes % 29.6 % (10-50); Mean Corpuscular HGB Conc 29.7 g/dL (31.8-35.4); Mean Corpuscular Volume 101.4 fl (80-94); Mean Platelet Volume 8.5 fl (7.4-10.4); Monocytes # 0.9 K/mm3 (0.1-1.0); Monocytes % 10.3 % (1.7-9.3); Neutrophils # 5.4 K/mm3 (1.8-7.8); Neutrophils % 59.6 % (37.0-80.0); Platelet Count 193 K/mm3 (142-424); Red Blood Count 5.44 M/mm3 (4.60-6.20); Red Cell Distribution Width 13.6 % (11.5-17.5); White Blood Count 9.1 K/mm3 (4.8-10.8)
[2019-01-13 18:06] LABS: Anion Gap 6.7 mEq/L (5-15); Calcium 8.4 mg/dL (8.5-10.1)
[2019-01-14 06:56] LABS: Basophils % 0.2 % (0.1-2.0); Eosinophils % 0.1 % (0.1-12.0); Hemoglobin 15.7 g/dL (14.1-18.0); Lymphocytes # 4.6 K/mm3 (0.7-4.5); Lymphocytes % 64.4 % (10-50); Mean Corpuscular HGB Conc 29.1 g/dL (31.8-35.4); Mean Corpuscular Volume 104.8 fl (80-94); Mean Platelet Volume 8.1 fl (7.4-10.4); Monocytes # 0.2 K/mm3 (0.1-1.0); Monocytes % 2.3 % (1.7-9.3); Neutrophils # 2.3 K/mm3 (1.8-7.8); Platelet Count 167 K/mm3 (142-424); Red Blood Count 5.15 M/mm3 (4.60-6.20); Red Cell Distribution Width 13.5 % (11.5-17.5); White Blood Count 7.1 K/mm3 (4.8-10.8)
[2019-01-14 07:26] LABS: Anion Gap 5.8 mEq/L (5-15); Calcium 7.9 mg/dL (8.5-10.1)
--- NOTE | 2019-01-14 07:29 | Pharmacy Consult Notes ---
[facility] Pharmacy VTE Monitoring - Patient Demographics Admission date: 01/13/19 Report Date: 01/14/19 Time: 07:29 Allergies/Adverse Reactions: Patient Allergies No Known Allergies Allergy (Verified 04/29/18 12:45) Height: 1.65 m Weight: 100.754 kg Patient Problems: Current Active Problems Severe sepsis (Acute) Acute respiratory failure with hypoxia (Acute) Bilateral pneumonia (Acute) - VTE Risk Labs: VTE Related Lab Results Hgb 15.7 g/dL (14.1-18.0) 01/14/19 06:35 Hct 54.0 % (42.0-52.0) H 01/14/19 06:35 Plt Count 167 K/mm3 (142-424) 01/14/19 06:35 BUN 14 mg/dL (7-18) 01/13/19 17:15 Creatinine 0.68 mg/dL (0.70-1.30) L 01/13/19 17:15 Estimated Creat Clear 192 mL/min (50-200) 01/13/19 17:15 - Prophylaxis VTE Prophylaxis Ordered?: Yes Types of VTE Prophylaxis: TEDS Knee High Location of Applied Device: Bilateral Lower Extremeties - VTE Diagnosis Confirmed Treatment or plan recommended: Continue Current Treatment
--- NOTE | 2019-01-14 08:51 | History & Physical Report ---
*Admission Date: 01/13/19 *Chief complaint: dyspnea *History of present illness: Mr. Simmons is a 48-year-old male with history of COPD and oxygen dependence, 1 pack a day tobacco use, who presented to the ER after driving himself there due to 3 weeks of worsening shortness of breath. Complains of cough that is nonproductive, dyspnea however not wearing his oxygen at home, fevers and fatigue/weakness. Upon arrival to the ER, his saturations were found to be in the high 60s. He responded well with the initiation of oxygen. Initial work-up concerning for elevated CO2 of 99, imaging concerning for pneumonia, tachycardia and tachypnea. Patient presentation consistent with sepsis. Was initiated on broad-spectrum antibiotics and BiPAP for his hypercarbic and hypoxemic respiratory failure. Denied any chest pain, nausea vomiting, diarrhea. Stated he does not take his treatments for COPD regularly. Admitted to medicine for further management [facility] History I have reviewed the patient's past medical history: Yes Medical History: Reports:: Chronic Obstructive Pulmonary Disease (COPD) Denies:: Cancer, Diabetes Mellitus Type 1, Diabetes Mellitus Type 2, MRSA *Have you ever received a pneumonia vaccine?: Yes *Have you received a flu vaccine this season?: No Other Surgeries: Yes: Other (INTESTINAL SX UNSURE WHAT) Amputation: No Fractures: No - *Social History Educational Level: Attended High School Smoking Status: Current every day smoker Tobacco Type: cigarettes # Packs/Day (cigarettes): 1 Alcohol Intake: never Alcohol Intake Frequency:: other Substance Use Type: crack/cocaine Last Used Substance: unknown *Occupational Status:: employed Household Members: other *Travel in the last 8 weeks: None - Psychiatric History Expresses thoughts of harming self/others: None Suicide Plan Description: No Plan Family Hx:: Cancer, Coronary Artery Disease Review of Systems - Review of Systems Review of systems:: pertinent systems reviewed and negative unless documented below - *Neurologic Denies abnormal walking, Denies behavioral changes, Denies confusion, Denies seizure-like activity Meds Home Medications Medication Instructions Recorded Confirmed Type Albuterol Sulfate [Proventil-HFA 2 puffs IH Q6HP PRN puff 05/16/18 01/14/19 Rx 90mcg/puff Inh] Fluticasone/Umeclidin/Vilanter 1 each IH DAILY 01/13/19 01/14/19 History [Arsenio Dickson 100-62.5-25] Allergies Allergy/AdvReac Type Severity Reaction Status Date / Time No Known Allergies Allergy Verified 04/29/18 12:45 Exam Vital signs and Labs for Last 24 Hours: Temp Pulse Resp BP Pulse Ox 98.4 F 85 21 127/78 92 L 01/14/19 08:00 01/14/19 08:00 01/14/19 08:00 01/14/19 08:00 01/14/19 08:00 Laboratory Results - last 24 hr 01/13/19 17:15: D-Dimer < 100 01/13/19 17:15: WBC 9.1, RBC 5.44, Hgb 16.4, Hct 55.2 H, MCV 101.4 H, MCH 30.1, MCHC 29.7 L, RDW 13.6, Plt Count 193, MPV 8.5, Neut % (Auto) 59.6, Lymph % (Auto) 29.6, [place] % (Auto) 10.3 H, Eos % (Auto) 0.3, Baso % (Auto) 0.3, Neut # (Auto) 5.4, Lymph # (Auto) 2.7, [place] # (Auto) 0.9, Eos # (Auto) 0.0, Baso # (Auto) 0.0 01/13/19 17:15: Sodium 141, Potassium 4.7, Chloride 99, Carbon Dioxide 40 H, Anion Gap 6.7, BUN 14, Creatinine 0.68 L, Estimated Creat Clear 192, Estimated GFR 124, Est GFR ( Amer) 151, Glucose 158 H, Calcium 8.4 L 01/13/19 17:33: Specimen Source Right radial, O2 % 36, ABG pH 7.23 L*, ABG pCO2 99.2 H, ABG pO2 64.7 L, ABG HCO3 40.9 H, ABG Total CO2 43.9 H, ABG O2 Saturation 91, ABG Base Excess 13.4 H, Faisal Test Acceptable 01/13/19 17:58: Lactate 0.5 01/14/19 06:35: WBC 7.1, RBC 5.15, Hgb 15.7, Hct 54.0 H, MCV 104.8 H, MCH 30.5, MCHC 29.1 L, RDW 13.5, Plt Count 167, MPV 8.1, Neut % (Auto) 33.0 L, Lymph % (Auto) 64.4 H, [place] % (Auto) 2.3, Eos % (Auto) 0.1, Baso % (Auto) 0.2, Neut # (Auto) 2.3, Lymph # (Auto) 4.6 H, [place] # (Auto) 0.2, Eos # (Auto) 0.0, Baso # (Auto) 0.0 01/14/19 06:35: Sodium 141, Potassium 4.8, Chloride 102, Carbon Dioxide 38 H, Anion Gap 5.8, BUN 14, Creatinine 0.70, Estimated Creat Clear 184, Estimated GFR 120, Est GFR ( Amer) 146, Glucose 189 H, Calcium 7.9 L I & O for Last 24 hours: Intake & Output 01/11/19 01/12/19 01/13/19 01/14/19 23:59 23:59 23:59 23:59 Intake Total 2132 / 2132 Output Total 250 / 250 Balance 1882 / 1882 Weight 100.754 kg 100.754 kg Microbiology Reports for the Last 24 Hours: Microbiology 01/14/19 05:34 Sputum - Expectorated Sputum Gram Stain - Final - Constitutional mild distress, obese - *Routine HEENT Exam Head: Present: normocephalic Eye: Present: EOMI, PERRL ENT: Present: mucous membranes moist - *Routine Neck Exam Present: supple. Absent: JVD - *Routine Respiratory Exam Present: prolonged expiratory phase, wheezes (Faint intermittent), crackles (Right base) - *Routine Cardiovascular Exam Present: RRR, Normal S1. Absent: murmur - *Routine Abdominal Exam Present: soft, normoactive bowel sounds - *Routine Rectal Exam Patient deferred: visual exam - *Routine Exam Patient deferred: penile exam - *Routine Extremities Exam Present: edema. Absent: cyanosis, clubbing - *Routine Skin Exam Present: intact. Absent: cyanosis, erythema - *Routine Neurological Exam Present: alert, oriented X3. Absent: altered mental status (Low to respond however) Assessment and Plan (1) Acute on chronic respiratory failure with hypoxia and hypercapnia Current visit: Yes Status: Acute Category: Medical Code(s): J96.21 - Acute and chronic respiratory failure with hypoxia; J96.22 - Acute and chronic respiratory failure with hypercapnia (2) Bilateral pneumonia Current visit: Yes Status: Acute Qualifiers: Pneumonia type: due to unspecified organism Lung location: unspecified part of lung Qualified Code(s): J18.9 - Pneumonia, unspecified organism Category: Medical Code(s): J18.9 - Pneumonia, unspecified organism Continue azithromycin and Zosyn. Steroids initiated on admission. Oxygen as required for goal sats greater than 92 while awake, greater than 88 while asleep. Transition oral antibiotic regimen to complete 7 to 10 days when appropriate. Will need oxygen at time of discharge (3) Severe sepsis Current visit: Yes Status: Acute Category: Medical Code(s): A41.9 - Sepsis, unspecified organism; R65.20 - Severe sepsis without septic shock Improving. Given respiratory failure, tachypnea, tachycardia, presumed infection with pneumonia. And biotics and fluids initiated. Cultures pending. (4) Tobacco abuse Current visit: No Status: Chronic Category: Medical Code(s): Z72.0 - Tobacco use Nicotine patches ordered. Patient declined at this time. Informed there is no smoking at the hospital (5) Respiratory acidosis Current visit: Yes Status: Acute Category: Medical Code(s): E87.2 - Acidosis Secondary to hypercapnic respiratory failure. Anticipate improvement with BiPAP (6) Macrocytosis without anemia Current visit: Yes Status: Chronic Category: Medical Code(s): D75.89 - Other specified diseases of blood and blood-forming organs - Assessment and plan all Dx Assessment and Plan for all problems:: 88-year-old male with COPD and respiratory failure. Responding to medical management. Condition remains guarded, prognosis fair. Continues to require inpatient management due to sepsis and respiratory failure
[2019-01-14 16:52] LABS: Lymphocytes % 7 % (10-50); Monocytes % 1 % (2-9)
[2019-01-14 16:53] LABS: Nucleated Red Blood Cells 1
[2019-01-14 16:54] LABS: Stomatocytes 1+
[2019-01-14 20:43] LABS: Total Cells Counted 100
[2019-01-14 20:44] LABS: Neutrophils % 92 % (42-76)
--- NOTE | 2019-01-15 08:12 | Progress Note ---
Internal Medicine - PN: Subj *Date: 01/15/19 *Time: 08:11 Interval history: Patient slept fairly well overnight. He continues to be dyspneic when he removes his BiPAP but has been able to eat some breakfast. Exam Vital signs and Labs for Last 24 Hours: Temp Pulse Resp BP Pulse Ox 97.4 F L 75 22 127/76 98 01/15/19 04:00 01/15/19 06:04 01/15/19 04:00 01/15/19 04:00 01/15/19 04:00 Laboratory Results - last 24 hr 01/14/19 06:35: Total Counted 100, Neutrophils % (Manual) 92 H, Lymphocytes % (Manual) 7 L, Monocytes % (Manual) 1 L, Nucleated RBCs 1, Platelet Estimate Normal, Microcytosis Bugg[place], Stomatocytes 1+ I & O for Last 24 hours: Intake & Output 01/12/19 01/13/19 01/14/19 01/15/19 11:59 11:59 11:59 11:59 Intake Total 2132 / 2132 1739 / 1739 Output Total 250 / 250 500 / 500 Balance 1882 / 1882 1239 / 1239 Weight 222 lb 1.993 oz 238 lb 7 oz Microbiology Reports for the Last 24 Hours: Microbiology 01/14/19 05:34 Sputum - Expectorated Sputum Gram Stain - Final Narrative: Patient is pleasant, alert. Oriented x3. Lungs have poor air movement but symmetrically intact. No tracheal deviation. Oropharynx moist and clear. Heart rate regular, perfusion in his extremities is normal with normal capillary refill and good distal pulses. Abdomen soft and nontender. Assessment and Plan (1) Acute on chronic respiratory failure with hypoxia and hypercapnia Current visit: Yes Status: Acute Category: Medical Code(s): J96.21 - Acute and chronic respiratory failure with hypoxia; J96.22 - Acute and chronic respiratory failure with hypercapnia (2) Bilateral pneumonia Current visit: Yes Status: Acute Qualifiers: Pneumonia type: due to unspecified organism Lung location: unspecified part of lung Qualified Code(s): J18.9 - Pneumonia, unspecified organism Category: Medical Code(s): J18.9 - Pneumonia, unspecified organism (3) Severe sepsis Current visit: Yes Status: Acute Category: Medical Code(s): A41.9 - Sepsis, unspecified organism; R65.20 - Severe sepsis without septic shock (4) Tobacco abuse Current visit: No Status: Chronic Category: Medical Code(s): Z72.0 - Tobacco use (5) Respiratory acidosis Current visit: Yes Status: Acute Category: Medical Code(s): E87.2 - Acidosis (6) Macrocytosis without anemia Current visit: Yes Status: Chronic Category: Medical Code(s): D75.89 - Other specified diseases of blood and blood-forming organs - Assessment and plan all Dx Assessment and Plan for all problems:: Patient continues to require BiPAP. I anticipate this will last through today. Plan to get repeat chest x-ray and labs tomorrow morning. Continue antibiotic therapy. Patient's perfusion status and vital signs have normalized.
[2019-01-16 07:44] LABS: Albumin Level 2.6 gm/dL (3.4-5.0); Albumin/Globulin Ratio 0.7 (1.1-1.8); Anion Gap 3.2 mEq/L (5-15); Bilirubin,Total 0.5 mg/dL (0.2-1.0); Calcium 7.9 mg/dL (8.5-10.1); Globulin 3.8 gm/dl (1.3-3.2); Total Protein,Serum 6.4 gm/dL (6.4-8.2)
[2019-01-16 08:33] LABS: Basophils % 0.2 % (0.1-2.0); Hematocrit 52.2 % (42.0-52.0); Hemoglobin 14.8 g/dL (14.1-18.0); Lymphocytes # 5.7 K/mm3 (0.7-4.5); Lymphocytes % 66.9 % (10-50); Mean Corpuscular HGB Conc 28.4 g/dL (31.8-35.4); Mean Corpuscular Volume 104.8 fl (80-94); Mean Platelet Volume 8.6 fl (7.4-10.4); Monocytes # 0.2 K/mm3 (0.1-1.0); Monocytes % 2.6 % (1.7-9.3); Neutrophils # 2.6 K/mm3 (1.8-7.8); Neutrophils % 30.4 % (37.0-80.0); Platelet Count 155 K/mm3 (142-424); Red Blood Count 4.98 M/mm3 (4.60-6.20); Red Cell Distribution Width 13.5 % (11.5-17.5); White Blood Count 8.6 K/mm3 (4.8-10.8)
--- NOTE | 2019-01-16 08:58 | Progress Note ---
Internal Medicine - PN: Subj *Date: 01/16/19 *Time: 08:45 Interval history: Mr. Simmons looks better this morning. He is not dyspneic on interview. Denies any fever, nausea vomiting, chest pain. Does complain of some headache overnight after wearing the BiPAP. Continues to require supplemental oxygen between 3 and 4 L. Is able to ambulate independently to the bathroom without difficulty. Overall states he feels better which is significant improvement. Tolerating IV medications for his pneumonia. Exam Vital signs and Labs for Last 24 Hours: Temp Pulse Resp BP Pulse Ox 98.6 F 78 20 109/55 L 94 L 01/16/19 07:53 01/16/19 07:53 01/16/19 07:53 01/16/19 07:53 01/16/19 08:00 Laboratory Results - last 24 hr 01/16/19 07:08: Sodium 138, Potassium 5.2 H, Chloride 101, Carbon Dioxide 39 H, Anion Gap 3.2 L, BUN 13, Creatinine 0.70, Estimated Creat Clear 204, Estimated GFR 120, Est GFR ( Amer) 146, Glucose 258 H, Calcium 7.9 L, Total Bilirubin 0.5, AST 17, ALT 33, Alkaline Phosphatase 110, Total Protein 6.4, Albumin 2.6 L, Globulin 3.8 H, Albumin/Globulin Ratio 0.7 L I & O for Last 24 hours: Intake & Output 01/13/19 01/14/19 01/15/19 01/16/19 23:59 23:59 23:59 23:59 Intake Total 2132 / 2132 4602 / 4602 1846 / 1846 Output Total 750 / 750 650 / 650 300 / 300 Balance 1382 / 1382 3952 / 3952 1546 / 1546 Weight 100.754 kg 100.754 kg 108.153 kg 111.64 kg Microbiology Reports for the Last 24 Hours: Microbiology 01/13/19 17:50 Blood Blood Culture - Preliminary NO GROWTH AFTER 48 HOURS 01/13/19 17:58 Blood Blood Culture - Preliminary NO GROWTH AFTER 48 HOURS Narrative: Patient is pleasant, alert, awake in bed on exam, Oriented x3. Lungs have fair air movement bilaterally, no wheeze or rhonchi. No tracheal deviation. Oropharynx moist and clear. Heart rate regular, perfusion in his extremities is normal with normal capillary refill and good distal pulses. No edema Abdomen soft and nontender. Assessment and Plan (1) Acute on chronic respiratory failure with hypoxia and hypercapnia Current visit: Yes Status: Acute Category: Medical Code(s): J96.21 - Acute and chronic respiratory failure with hypoxia; J96.22 - Acute and chronic respiratory failure with hypercapnia On admission patient's PCO2 was 99 mmHg. He has been tolerating a BiPAP at night while admitted with good response and improvement in mentation. At this time patient needs volume ventilation to treat respiratory failure; higher pressures on bilevel Pap device will not adequately treat him. Will need device to go home with to continue treatment in the outpatient setting. (2) Bilateral pneumonia Current visit: Yes Status: Acute Qualifiers: Pneumonia type: due to unspecified organism Lung location: unspecified part of lung Qualified Code(s): J18.9 - Pneumonia, unspecified organism Category: Medical Code(s): J18.9 - Pneumonia, unspecified organism (3) Severe sepsis Current visit: Yes Status: Acute Category: Medical Code(s): A41.9 - Sepsis, unspecified organism; R65.20 - Severe sepsis without septic shock (4) Tobacco abuse Current visit: No Status: Chronic Category: Medical Code(s): Z72.0 - Tobacco use (5) Respiratory acidosis Current visit: Yes Status: Acute Category: Medical Code(s): E87.2 - Acidosis (6) Macrocytosis without anemia Current visit: Yes Status: Chronic Category: Medical Code(s): D75.89 - Other specified diseases of blood and blood-forming organs - Assessment and plan all Dx Assessment and Plan for all problems:: Overall patient showing slight improvement. Will initiate trilogy device tonight for home use. Continue to wean oxygen as tolerated. Anticipate discharge tomorrow after establishing care on trilogy device. Will transition oral antibiotics to complete course of therapy at home. Will need oxygen at time of discharge.
[2019-01-16 14:10] LABS: Lymphocytes % 10 % (10-50); Monocytes % 5 % (2-9); Neutrophils % 85 % (42-76); Total Cells Counted 100
[2019-01-16 14:12] LABS: Macrocytosis 2+
[2019-01-17 07:30] LABS: Basophils % 0.2 % (0.1-2.0); Hematocrit 53.6 % (42.0-52.0); Hemoglobin 15.2 g/dL (14.1-18.0); Lymphocytes # 4.5 K/mm3 (0.7-4.5); Lymphocytes % 81.2 % (10-50); Mean Corpuscular HGB Conc 28.3 g/dL (31.8-35.4); Mean Corpuscular Volume 105.2 fl (80-94); Mean Platelet Volume 8.1 fl (7.4-10.4); Monocytes # 0.1 K/mm3 (0.1-1.0); Monocytes % 1.8 % (1.7-9.3); Neutrophils # 0.9 K/mm3 (1.8-7.8); Neutrophils % 16.8 % (37.0-80.0); Platelet Count 150 K/mm3 (142-424); Red Cell Distribution Width 13.7 % (11.5-17.5); White Blood Count 5.5 K/mm3 (4.8-10.8)
[2019-01-17 07:33] LABS: Anion Gap 4.7 mEq/L (5-15)
--- NOTE | 2019-01-17 10:46 | Progress Note ---
Internal Medicine - PN: Subj *Date: 01/17/19 *Time: 10:46 Exam Vital signs and Labs for Last 24 Hours: Temp Pulse Resp BP Pulse Ox 97.9 F 77 22 119/66 94 L 01/17/19 08:00 01/17/19 10:05 01/17/19 08:00 01/17/19 08:00 01/17/19 08:00 Laboratory Results - last 24 hr 01/16/19 07:08: Total Counted 100, Neutrophils % (Manual) 85 H, Lymphocytes % (Manual) 10, Monocytes % (Manual) 5, Differential Comment , Platelet Estimate Normal, Macrocytosis 2+ 01/17/19 07:03: WBC 5.5 D, RBC 5.10, Hgb 15.2, Hct 53.6 H, MCV 105.2 H, MCH 29.8, MCHC 28.3 L, RDW 13.7, Plt Count 150, MPV 8.1, Neut % (Auto) 16.8 L, Lymph % (Auto) 81.2 H, [place] % (Auto) 1.8, Eos % (Auto) 0.0 L, Baso % (Auto) 0.2, Neut # (Auto) 0.9 L*, Lymph # (Auto) 4.5, [place] # (Auto) 0.1, Eos # (Auto) 0.0, Baso # (Auto) 0.0 01/17/19 07:03: Sodium 142, Potassium 4.7, Chloride 103, Carbon Dioxide 39 H, Anion Gap 4.7 L, BUN 11, Creatinine 0.74, Estimated Creat Clear 106, Estimated GFR 113, Est GFR ( Amer) 137, Glucose 359 H D, Calcium 8.0 L I & O for Last 24 hours: Intake & Output 01/14/19 01/15/19 01/16/19 01/17/19 23:59 23:59 23:59 23:59 Intake Total 2132 / 2132 4602 / 4602 3884 / 3884 2561 / 2561 Output Total 750 / 750 650 / 650 650 / 650 725 / 725 Balance 1382 / 1382 3952 / 3952 3234 / 3234 1836 / 1836 Weight 100.754 kg 108.153 kg 111.64 kg 114.986 kg Microbiology Reports for the Last 24 Hours: Microbiology 01/14/19 05:34 Sputum - Expectorated Sputum Gram Stain - Final 01/14/19 05:34 Sputum - Expectorated Sputum Sputum Culture - Preliminary Assessment and Plan (1) Acute on chronic respiratory failure with hypoxia and hypercapnia Current visit: Yes Status: Acute Category: Medical Code(s): J96.21 - Acute and chronic respiratory failure with hypoxia; J96.22 - Acute and chronic respiratory failure with hypercapnia (2) Bilateral pneumonia Current visit: Yes Status: Acute Qualifiers: Pneumonia type: due to unspecified organism Lung location: unspecified part of lung Qualified Code(s): J18.9 - Pneumonia, unspecified organism Category: Medical Code(s): J18.9 - Pneumonia, unspecified organism (3) Severe sepsis Current visit: Yes Status: Acute Category: Medical Code(s): A41.9 - Sepsis, unspecified organism; R65.20 - Severe sepsis without septic shock (4) Tobacco abuse Current visit: No Status: Chronic Category: Medical Code(s): Z72.0 - Tobacco use (5) Respiratory acidosis Current visit: Yes Status: Acute Category: Medical Code(s): E87.2 - Acidosis (6) Macrocytosis without anemia Current visit: Yes Status: Chronic Category: Medical Code(s): D75.89 - Other specified diseases of blood and blood-forming organs The patient's infection will respond to the chosen ABx?: Yes Is the patient receiving the right drug, dose, and route?: Yes Could a more targeted ABx be ordered?: No (CULTURES NO GROWTH, AFEBRILE, AND WBC WNL)
--- NOTE | 2019-01-17 10:47 | Discharge Summary ---
General - General Admission date:: 01/13/19 Discharge date: 01/17/19 HPI HPI: Mr. Simmons is a 48-year-old male with history of COPD and oxygen dependence, 1 pack a day tobacco use, who presented to the ER after driving himself there due to 3 weeks of worsening shortness of breath. Complains of cough that is nonproductive, dyspnea however not wearing his oxygen at home, fevers and fatigue/weakness. Upon arrival to the ER, his saturations were found to be in the high 60s. He responded well with the initiation of oxygen. Initial work-up concerning for elevated CO2 of 99, imaging concerning for pneumonia, tachycardia and tachypnea. Patient presentation consistent with sepsis. Was initiated on broad-spectrum antibiotics and BiPAP for his hypercarbic and hypoxemic respiratory failure. Denied any chest pain, nausea vomiting, diarrhea. Stated he does not take his treatments for COPD regularly. Admitted to medicine for further management Hospital Course Hospital Course: Initiated on antibiotics, steroids and oxygen with gradual defervescence of his dyspnea. During admission his sepsis resolved. Required oxygen continuously with BiPAP vision overnight for the first several days of admission. Patient tolerated oral intake, stable on 3 L oxygen, and transitioned to oral antibiotics prior to discharge. He was also transitioned to a trilogy device for his last night during admission. Stated he tolerated it well, had restorative sleep, and breathe comfortably overnight with the device. Due to his acute on chronic respiratory failure, patient will go home with continued oxygen use and need for trilogy device at night. Would benefit from sleep study in the outpatient setting when more stable. Denied any headache, nausea vomiting, chest pain, fever, confusion. Medically stable for discharge home. Given samples of Trelegy for daily maintenance inhaler therapy once home Objective Vital signs: Temp Pulse Resp BP Pulse Ox 97.9 F 77 22 119/66 94 L 01/17/19 08:00 01/17/19 10:05 01/17/19 08:00 01/17/19 08:00 01/17/19 08:00 Narrative: Patient is pleasant, alert and oriented x3. Sitting at edge of bed in good spirits. Lungs have fair air movement bilaterally, no wheeze or rhonchi. No tracheal deviation. Oropharynx moist and clear. NC in place on 3 L Heart rate regular, perfusion in his extremities is normal with normal capillary refill and good distal pulses. No edema Abdomen soft and nontender. Results Labs on day of discharge: Labs from last 24 hours 01/17/19 01/17/19 01/16/19 07:03 07:03 07:08 WBC 5.5 D RBC 5.10 Hgb 15.2 Hct 53.6 H MCV 105.2 H MCH 29.8 MCHC 28.3 L RDW 13.7 Plt Count 150 MPV 8.1 Neut % (Auto) 16.8 L Lymph % (Auto) 81.2 H [place] % (Auto) 1.8 Eos % (Auto) 0.0 L Baso % (Auto) 0.2 Neut # (Auto) 0.9 L* Lymph # (Auto) 4.5 [place] # (Auto) 0.1 Eos # (Auto) 0.0 Baso # (Auto) 0.0 Total Counted 100 Neutrophils % (Manual) 85 H Lymphocytes % (Manual) 10 Monocytes % (Manual) 5 Differential Comment Platelet Estimate Normal Macrocytosis 2+ Sodium 142 Potassium 4.7 Chloride 103 Carbon Dioxide 39 H Anion Gap 4.7 L BUN 11 Creatinine 0.74 Estimated Creat Clear 106 Estimated GFR 113 Est GFR ( Amer) 137 Glucose 359 H D Calcium 8.0 L Preliminary micro results at discharge 01/14/19 05:34 Sputum Culture - Preliminary Sputum - Expectorated Sputum 01/13/19 17:50 Blood Culture - Preliminary Blood NO GROWTH AFTER 48 HOURS 01/13/19 17:58 Blood Culture - Preliminary Blood NO GROWTH AFTER 48 HOURS DS: Diagnosis - Discharge Diagnosis (1) Acute on chronic respiratory failure with hypoxia and hypercapnia Status: Resolved (2) Bilateral pneumonia Status: Acute (3) Severe sepsis Status: Resolved (4) Tobacco abuse Status: Chronic (5) Respiratory acidosis Status: Resolved (6) Macrocytosis without anemia Status: Chronic Discharge Plan - Patient Discharge Instructions Patient Instructions: Pneumonia-Adult, Pneumococcal Vaccine, DI for Pneumonia -- Adult, DI for Sepsis -- Adult, DI for Respiratory Failure, Respiratory Failure - Follow up Plan Follow up with: Sedrick López MD [Staff Physician] - 01/24/19 10:30 am Disposition: Home, Self-Usp Medications: Home Medications Medication Instructions Recorded Confirmed Type Fluticasone/Umeclidin/Vilanter 1 each IH DAILY 01/13/19 01/14/19 History [Trelegy Ellipta 100-62.5-25] Albuterol Sulfate [Proventil-HFA 2 puffs IH Q6HP PRN 30 Days #1 puff 01/17/19 Rx 90mcg/puff Inh] Amoxicillin/Potassium Clav 1 tab PO Q12H 6 Days #12 tab 01/17/19 Rx [Augmentin 875-125 Tablet] Ipratropium/Albuterol Sulfate 3 ml IH Q3H ampul.neb 01/17/19 Rx [Duoneb 3mL neb] Nicotine [Nicoderm 14mg/24hrs 14 mg TD DAILYP PRN 30 Days #30 01/17/19 Rx patch] patch.td24 predniSONE [Deltasone 10mg tablet] 20 mg PO BID 2 Days #8 tab 01/17/19 Rx Prescriptions/Medication Reconciliation: New Nicotine [Nicoderm 14mg/24hrs patch] 14 mg TD DAILYP PRN 30 Days #30 pa tch.td24 PRN Reason: Nicotine Cravings Amoxicillin/Potassium Clav [Augmentin 875-125 Tablet] 1 tab PO Q12H 6 Days #12 tab predniSONE [Deltasone 10mg tablet] 20 mg PO BID 2 Days #8 tab Ipratropium/Albuterol Sulfate [Duoneb 3mL neb] 3 ml IH Q3H ampul.neb Continued Albuterol Sulfate [Proventil-HFA 90mcg/puff Inh] 2 puffs IH Q6HP PRN 30 Days #1 puff PRN Reason: Shortness Of Breath Fluticasone/Umeclidin/Vilanter [Trelegy Ellipta 100-62.5-25] 1 each IH DAILY - Problem Reconciliation Problems Reviewed?: Yes
[2019-01-17 17:43] LABS: Monocytes % 7 % (2-9); Neutrophils % 83 % (42-76); Nucleated Red Blood Cells 1; Total Cells Counted 100
[2019-01-17 17:47] LABS: Lymphocytes % 8 % (10-50)
== END 2019-01-17 14:33 | disposition home or self-care (01) | DRG 871 ==
LOC: ER 16:50 → 2ND 18:59
PROVIDERS: ADMIT Internal Medicine Adolescent Medicine; ATTEND Internal Medicine Adolescent Medicine
CPT/HCPCS: 36415; 71010; 71020; 71045; 71046; 80048; 80053; 82803; 83605; 85007; 85025; 85378; 87040; 87070; 87205; 93005; 94640; 94660; 94761; 96365; 96375; 97162; 99285; J0456; J2543

== ENCOUNTER → 2019-04-15 06:34 | Outpatient (CLI) | payer BC, SELFPAY ==
--- NOTE | 2019-04-15 06:36 | CA_ITS ---
APPROVED REPORT EXAM: Comprehensive 2D, Doppler, and color-flow Echocardiogram Salvage Clerk: Hoda Armenta RDCS Ht: 5 ft 6 in Wt: 235lbs BSA: 2.14 BP: 154/64 mmHg Indications: Palpitations, smoker,dizziness, edema,ANGELINA 2D Dimensions LVOT 1.75 cm (M/F) 1.5-2.5 M-Mode Dimensions RVDd 2.39 cm (0.9-2.6) LVDd 5.28 cm (3.5-5.7) LVDs 4.13 cm (3.5-5.7) IVSd 1.19 cm (0.6-1.1) PWd 1.28 cm (0.6-1.1) EF (Teich) 43.70% FS 21.80% EDV (Teich) 134.20 mL ESV (Teich) 75.50 mL LV Diastology E/A Ratio 1.17 Mitral Valve MV A Velocity 70.00 (40-130 cm/s) Left Ventricle Left atrium is normal size, left ventricle is normal size, there is no concentric left ventricular hypertrophy, visually estimated ejection fraction 55% with no regional wall motion abnormality. Diastolic parameters are within normal range. Right Ventricle Right atrium right ventricular normal size and contractility. Aortic Valve Aortic valve is grossly normal. Mitral Valve Mitral valve is grossly normal, there is mild mitral regurgitation. Tricuspid Valve Tricuspid valve is grossly normal, there is mild tricuspid regurgitation. Tricuspid regurgitation jet velocity is inadequate for calculation of the right ventricular systolic pressure. Pulmonic Valve Pulmonic valve is poorly visualized. Great Vessels Aortic root is normal size. Pericardium No significant pericardial effusion noted. Conclusion 1. Normal left ventricular size, preserved left ventricular systolic function, visually estimated ejection fraction 55% with no regional wall motion abnormality, diastolic parameters are within normal range. 2. Mild mitral and tricuspid regurgitation 3. No significant pericardial effusion noted. Electronically signed by : Teodoro Fraser, 04/18/2019 15:12:30
--- NOTE | 2019-04-15 06:40 | CA_ITS ---
APPROVED REPORT Exam: Pharmacologic Technologist: Winifred Toribio, Ht: 5 ft 5 in Wt: 240 lbs BSA: 2.14 m2 HR: 77 bpm BP: 112/79 mmHg Rhythm: SINUS RHYTHM Indications: SOA,CP Medical History Medical History: HTN Medications: Lisinopril,,,,, Duoneb,,,,, Lasix,,,,, FluTICASONE,,,,, Trelegy,,,,, Allergies: NKA Cardiac Risk Factors: HTN, FHX of CAD, Smoking Stress Test Details Test: LEXISCAN HR Resting HR: 77 bpm Max Heart Rate (APMHR): 171 bpm Max HR Achieved: 113 bpm Target HR (85% APMHR): 145 bpm % of APMHR: 66 Recovery HR: 93 bpm BP Resting BP: 112.0/79.0 mmHg Max BP: 142.0/69.0 mmHg Recovery BP: 131.0/76.0 mmHg ECG Resting ECG: SINUS RHYTHM Clinical Exercise duration: 04:00 min Highest Stage Achieved: Exercise capacity: 1.0 METs Stress ECG Conclusion LEXISCAN PORTION COMPLETED. PATIENT C/O SHORTNESS OF BREATH AT PEAK INFUSION. RESOLVED IN RECOVERY. DURING INFUSION PATIENT HAD NO CHEST PAIN BUT DID HAVE SOA AT PEAK INFUSION. RESOLVED IN RECOVERY. NO ECTOPY NOTED. LESS THAN 1.5MM ST DEPRESSION. IMAGES TO FOLLOW Test Summary . . . . . Stop exercise at 04:00 . . . . . Electronically signed by : Teodoro Fraser, 04/16/2019 05:48:28
--- NOTE | 2019-04-15 06:40 | NM_ITS ---
APPROVED REPORT Exam: Nuclear Stress Test Indication: Chest pain, SOB, Fatigue, Tobacco use, Family history Patient Location: Outpatient Stress Tech: Tawana Catarino MA Tech:Annel Hassan, ARRT, RT (R)(N) Ht: 5 ft 5 in Wt: 240 lbs HR: 77 bpm BP: 112/79 mmHg BSA: 2.14 m2 BMI: 39.9 History: Chest pain, SOB, Fatigue, Tobacco use, Family history Procedure: Patient received a 0.4 mg of intravenous Lexiscan, resting heart rate 77 bpm, resting blood pressure 112/79 mmHg, with Lexiscan maximum heart rate achived was 108 bpm which is Less than 85 % of the maximum predicted heart rate and blood pressure was 127/69 mmHg. With Lexiscan, patient denied any complaint of chest pain. Electrocardiogram Resting electro cardiogram showed sinus rhythm, with Lexiscan there is less than 1.[address] segment depression noted from the baseline EKG. The EKG portion of the Lexiscan Myoview is nondiagnostic. Cardiac Stress and Resting SPECT Images: Cardiac Stress and Resting SPECT images were obtained using technetium 99m Myoview 30.1 mCi stress and 10.55 mCi at rest. Gated SPECT with analysis of segmental wall motion and calculation of the ejection fraction also done. Cardiac stress and resting SPECT images show uniform myocardial activity without segmental perfusion abnormality, computer derived ejection fraction is 52% with no regional wall motion abnormality, right ventricle is mildly enlarged with normal contractility. Conclusion: 1. The EKG portion of the Lexiscan Myoview is nondiagnostic. 2. No scintigraphic evidence of reversible ischemia seen, computer derived ejection fraction is 52% with no regional wall motion abnormality, right ventricle is mildly enlarged with normal contractility. Electronically signed by : Teodoro Fraser, 04/16/2019 05:50:34
--- NOTE | 2019-04-15 07:48 | HMH.ITSHM ---
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 []TRELEGY FUROSEMIDE LISINOPRIL NICOTINE PATCH ALBUTEROL
== END ==
PROVIDERS: PCP Internal Medicine Adolescent Medicine; Visit Provider Urology
DX: R00.2 Palpitations (principal); R06.02 Shortness of breath; R07.89 Other chest pain; R42 Dizziness and giddiness
CPT/HCPCS: 78452; 93017; 93306; A9502; J2785

== ENCOUNTER → 2019-04-22 11:15 | Outpatient (CLI) | payer BC, SELFPAY | PROVIDERS: PCP Internal Medicine Adolescent Medicine; Visit Provider Urology | DX: R42 Dizziness and giddiness (principal); R00.2 Palpitations; R06.02 Shortness of breath; R07.9 Chest pain, unspecified; J44.1 Chronic obstructive pulmonary disease with (acute) exacerbation; Z72.0 Tobacco use | CPT/HCPCS: 93270 ==

== ENCOUNTER → 2019-04-29 10:32 | Outpatient (CLI) | payer BC, SELFPAY ==
--- NOTE | 2019-04-29 10:33 | CA_ITS ---
APPROVED REPORT Computer Systems Integrator: Ayana Mendenhall RVT Laterality: Bilateral Study Quality: Good Indications: dizziness, Doppler Spectral Velocity Analysis ECA (R) 89.90/18.20 cm/s ECA (L) 93.60/12.10 cm/s dICA (R) 71.10/25.40 cm/s dICA (L) 98.00/37.60 cm/s Rashawn (R) 58.60/17.70 cm/s Rashawn (L) 86.60/33.10 cm/s pICA (R) 51.50/19.20 cm/s pICA (L) 74.50/31.80 cm/s dCCA (R) 81.40/23.10 cm/s dCCA (L) 83.10/27.70 cm/s pCCA (R) 101.10/21.40 cm/s pCCA (L) 89.00/19.80 cm/s Vert (R) 43.30/13.30 cm/s Vert (L) 46.70/15.60 cm/s ICA/CCA 0.87 ICA/CCA 1.18 Findings Study suggests normal right internal cartoid artery. Study suggests less than 20% stenosis of the left internal carotid artery. Antegrade flow seen bilateral vertebral arteries. Conclusion No increased velocities to suggest hemodynamically significant stenosis in either internal carotid artery. Electronically signed by : Faisal Dia MD 04/30/2019 19:10:43
== END ==
PROVIDERS: PCP Internal Medicine Adolescent Medicine; Visit Provider Urology
DX: R42 Dizziness and giddiness (principal); J44.1 Chronic obstructive pulmonary disease with (acute) exacerbation; R00.2 Palpitations; R06.02 Shortness of breath; R07.9 Chest pain, unspecified; Z72.0 Tobacco use
CPT/HCPCS: 93880

== ENCOUNTER 2019-05-08 16:28 | Observation (INO) ==
--- NOTE | 2019-05-08 16:43 | Emergency Department Note ---
ED Disposition Clinical Impression: Ventricular tachycardia (paroxysmal) Disposition: Admitted as Observation Condition on Discharge: Serious Referrals: Sedrick López MD [Primary Care Provider] - - Critical Care Critical Care Time: No Attestation: On , the high probability of a clinically significant, sudden or life threatening deterioration of the following system(s) required my full and direct attention, intervention and personal management. The time I documented below is in addition to time spent performing reported procedures but includes the following listed in this critical care notation. Medical Decision Making - Medical Records Medical records reviewed: Yes: I reviewed the patient's medical records. - [place]ady Inquiry Pt receiving controlled substance: No Vital Signs: 05/08/19 16:38 05/08/19 17:50 05/08/19 18:10 Temperature 98.4 F Temperature Source Oral Pulse Rate [Right Radial] 102 H 110 H 89 Respiratory Rate 18 Blood Pressure [Right Arm] 159/77 H 134/72 108/64 L Blood Pressure Mean [Right Arm] 104 92 78 Blood Pressure Source [Right Arm] Automatic Cuff Automatic Cuff Automatic Cuff Blood Pressure Position [Right Arm] Sitting Sitting Sitting 02 Sat by Pulse Oximetry 95 92 L 93 L Oxygen Delivery Method Room Air Room Air Room Air - Lab Data Lab Results 05/08/19 16:50: WBC 7.8, RBC 5.05, Hgb 15.5, Hct 50.3, MCV 99.6 H, MCH 30.6, MCHC 30.8 L, RDW 13.6, Plt Count 216, MPV 7.9, Neut % (Auto) 68.9, Lymph % (Auto) 18.1, [place] % (Auto) 10.6 H, Eos % (Auto) 2.0, Baso % (Auto) 0.4, Neut # (Auto) 5.4, Lymph # (Auto) 1.4, [place] # (Auto) 0.8, Eos # (Auto) 0.2, Baso # (Auto) 0.0 05/08/19 16:50: Sodium 142, Potassium 4.0, Chloride 101, Carbon Dioxide 32, Anion Gap 13.0, BUN 19 H, Creatinine 0.81, Estimated Creat Clear 170, Estimated GFR 101, Est GFR ( Amer) 123, Glucose 200 H, Calcium 8.8, Magnesium 1.6, Total Bilirubin 0.3, AST 18, ALT 26, Alkaline Phosphatase 117 H, Troponin I < 0.02, Total Protein 6.9, Albumin 3.1 L, Globulin 3.8 H, Albumin/Globulin Ratio 0.8 L, TSH 1.54 Result diagrams: 05/08/19 16:50 05/08/19 16:50 Orders (Tests/Meds): ORDERS Category Date Time Status Chest XR 2 view (NOT portable) [XR chest 2V] Stat Exams 05/08/19 16:36 Taken - ECG Data Tracing #1 I reviewed this ECG and interpreted as documented below: Normal sinus rhythm at 99. Normal EKG. ECG initial impression date: 05/08/19 ECG initial impression time: 16:45 Normal Sinus Rhythm: Yes Arrhythmia/Palpitations HPI - General Stated Complaint: Heart monitor check Time Seen by Provider: 05/08/19 16:35 - History of Present Illness HPI narrative: 49-year old obese male instructed to come in for evaluation due to run of V. tach on his Holter monitor. MD complaint: rapid heart beat Onset (ago): hour(s) (2) Duration: now resolved Severity: mild Context: other (Run of V. tach was completely asymptomatic) Associated symptoms: denies other symptoms - Related Data Home Medications Medication Instructions Recorded Confirmed fluticasone fur. 100 mcg-umeclid 1 inh INHALATION DAILY 03/19/19 03/19/19 62.5 mcg-vilant 25 mcg inhalat.powder furosemide 20 mg tablet 20 mg PO DAILY 04/22/19 04/22/19 spironolactone 25 mg tablet 25 mg PO BID 04/22/19 04/22/19 Previous Rx's Medication Instructions Recorded Albuterol Sulfate [Proventil-HFA 2 puffs IH Q6HP PRN 30 Days #1 puff 01/17/19 90mcg/puff Inh] Ipratropium/Albuterol Sulfate 3 ml IH Q3H ampul.neb 01/17/19 [Duoneb 3mL neb] Nicotine [Nicoderm 14mg/24hrs 14 mg TD DAILYP PRN 30 Days #30 01/17/19 patch] patch.[email or web address] Allergies Allergy/AdvReac Type Severity Reaction Status Date / Time No Known Allergies Allergy Verified 04/22/19 10:39 [facility] History - Hepatitis A Screen Attestation statement:: This patient has been screened for Hepatitis A risk factors. I have reviewed the patient's past medical history: Yes Medical History: Reports:: Chronic Obstructive Pulmonary Disease (COPD) Denies:: Cancer, Diabetes Mellitus Type 1, Diabetes Mellitus Type 2, MRSA Other Surgeries: Yes: Other (INTESTINAL SX UNSURE WHAT) Amputation: No Fractures: No - Social History Smoking Status: Current every day smoker Tobacco Type: cigarettes # Packs/Day (cigarettes): 1 Alcohol Intake: never Alcohol Intake Frequency:: other Substance Use Type: crack/cocaine Occupational Status: employed Household Members: other Family Hx:: Cancer, Coronary Artery Disease ROS Obtained: Yes All systems reviewed & no additional complaints - Constitutional Constitutional: Reports system reviewed and no additional complaints, except as docu - Eyes Eyes: Reports system reviewed and no additional complaints, except as docu - ENT Ears, Nose, Mouth, and Throat: Reports system reviewed and no additional complaints, except as docu - Cardiovascular Cardiovascular: Reports system reviewed and no additional complaints, except as docu - Respiratory Respiratory: Yes system reviewed and no additional complaints, except as docu - Gastrointestinal Gastrointestingal: Reports: system reviewed and no additional complaints, except as docu - Genitourinary Male Genitourinary: Reports system reviewed and no additional complaints, except as docu - Musculoskeletal Musculoskeletal: Reports system reviewed and no additional complaints, except as docu - Integumentary/Breasts Skin/Breast: Reports system reviewed and no additional complaints, except as docu - Neurologic Neurologic: Reports system reviewed and no additional complaints, except as docu - Endocrine Endocrine: Reports system reviewed and no additional complaints, except as docu - Hematologic/Lymphatic Henatologic/Lymphatic: Reports system reviewed and no additional complaints, except as docu - Allergic/Immunologic Allergic/Immunologic: Reports system reviewed and no additional complaints, except as docu Physical Exam - General General appearance: alert, in no apparent distress - Head Head exam: atraumatic, normocephalic, normal inspection - Eye Eye exam: Present: normal appearance, PERRL, EOMI - ENT ENT exam: Present: normal exam - Neck Neck exam: Present: normal inspection, full ROM, trachea midline. Absent: meningismus, lymphadenopathy - Chest Chest inspection: Present: normal inspection, symmetric chest wall rise. Absent: tenderness - Respiratory Respiratory exam: Present: normal lung sounds bilaterally. Absent: respiratory distress - Cardiovascular Cardiovascular exam: Present: regular rate, normal rhythm, normal heart sounds. Absent: JVD - Abdominal Exam Abdominal exam: Present: soft, normal bowel sounds. Absent: distention, tenderness, guarding - Extremities Exam Extremities exam: Present: normal inspection, full ROM, normal capillary refill. Absent: calf tenderness - Back Exam Back exam: Present: normal inspection. Absent: tenderness - Neurological Exam Neurological exam: Present: alert, oriented X3, CN II-XII intact, normal gait. Absent: motor sensory deficit - Psychiatric Psychiatric exam: Present: normal affect, normal mood - Skin Skin exam: Present: warm, dry, intact, normal color
[2019-05-08 17:03] LABS: Basophils % 0.4 % (0.1-2.0); Eosinophils # 0.2 K/mm3 (0.0-0.4); Hematocrit 50.3 % (42.0-52.0); Hemoglobin 15.5 g/dL (14.1-18.0); Lymphocytes # 1.4 K/mm3 (0.7-4.5); Lymphocytes % 18.1 % (10-50); Mean Corpuscular HGB Conc 30.8 g/dL (31.8-35.4); Mean Corpuscular Volume 99.6 fl (80-94); Mean Platelet Volume 7.9 fl (7.4-10.4); Monocytes # 0.8 K/mm3 (0.1-1.0); Monocytes % 10.6 % (1.7-9.3); Neutrophils # 5.4 K/mm3 (1.8-7.8); Neutrophils % 68.9 % (37.0-80.0); Platelet Count 216 K/mm3 (142-424); Red Blood Count 5.05 M/mm3 (4.60-6.20); Red Cell Distribution Width 13.6 % (11.5-17.5); White Blood Count 7.8 K/mm3 (4.8-10.8)
[2019-05-08 18:01] LABS: Alanine Aminotransferase 26 U/L (12-78); Albumin Level 3.1 gm/dL (3.4-5.0); Albumin/Globulin Ratio 0.8 (1.1-1.8); Alkaline Phosphatase 117 U/L (46-116); Aspartate Amino Transferase 18 U/L (15-37); Bilirubin,Total 0.3 mg/dL (0.2-1.0); Blood Urea Nitrogen 19 mg/dL (7-18); Calcium 8.8 mg/dL (8.5-10.1); Carbon Dioxide 32 mmol/L (21.0-32.0); Chloride 101 mmol/L (98-107); Globulin 3.8 gm/dl (1.3-3.2); Glucose 200 mg/dL (74-106); Sodium 142 mmol/L (136-145); Thyroid Stimulating Hormone 1.54 uIU/ml (0.358-3.740); Total Protein,Serum 6.9 gm/dL (6.4-8.2)
[2019-05-09 04:46] LABS: Basophils % 0.4 % (0.1-2.0); Eosinophils # 0.2 K/mm3 (0.0-0.4); Eosinophils % 2.1 % (0.1-12.0); Hematocrit 48.8 % (42.0-52.0); Lymphocytes # 1.8 K/mm3 (0.7-4.5); Lymphocytes % 23.9 % (10-50); Mean Corpuscular HGB Conc 30.8 g/dL (31.8-35.4); Mean Corpuscular Volume 98.2 fl (80-94); Mean Platelet Volume 7.7 fl (7.4-10.4); Monocytes # 0.8 K/mm3 (0.1-1.0); Neutrophils # 4.9 K/mm3 (1.8-7.8); Neutrophils % 63.6 % (37.0-80.0); Platelet Count 208 K/mm3 (142-424); Red Blood Count 4.97 M/mm3 (4.60-6.20); Red Cell Distribution Width 13.6 % (11.5-17.5); White Blood Count 7.7 K/mm3 (4.8-10.8)
[2019-05-09 04:52] LABS: Albumin/Globulin Ratio 0.8 (1.1-1.8); Anion Gap 8.9 mEq/L (5-15); Bilirubin,Total 0.4 mg/dL (0.2-1.0); Chol/HDL Ratio 3.8 (1-3.5); Globulin 3.6 gm/dl (1.3-3.2); Phosphorous 3.3 mg/dL (2.4-4.9); Total Protein,Serum 6.6 gm/dL (6.4-8.2)
--- NOTE | 2019-05-09 07:34 | Pharmacy Consult Notes ---
[facility] Pharmacy VTE Monitoring - Patient Demographics Admission date: 05/08/19 Report Date: 05/09/19 Time: 07:33 Allergies/Adverse Reactions: Patient Allergies No Known Allergies Allergy (Verified 04/22/19 10:39) Height: 1.65 m Weight: 108.068 kg Patient Problems: Current Active Problems Ventricular tachycardia (paroxysmal) (Acute) - VTE Risk Labs: VTE Related Lab Results Hgb 15.0 g/dL (14.1-18.0) 05/09/19 04:20 Hct 48.8 % (42.0-52.0) 05/09/19 04:20 Plt Count 208 K/mm3 (142-424) 05/09/19 04:20 BUN 15 mg/dL (7-18) 05/09/19 04:20 Creatinine 0.59 mg/dL (0.70-1.30) L D 05/09/19 04:20 Estimated Creat Clear 229 mL/min (50-200) 05/09/19 04:20 - Prophylaxis VTE Prophylaxis Ordered?: Yes Types of VTE Prophylaxis: TEDS Knee High Location of Applied Device: Bilateral Lower Extremeties - VTE Diagnosis Confirmed Treatment or plan recommended: Continue Current Treatment
--- NOTE | 2019-05-09 08:19 | Consult Report ---
History of Present Illness Consult date: 05/09/19 Requesting physician: Sedrick López Chief complaint: V. tach Additional Medical History:: 1. COPD A. continues tobacco use, 0.5-1 ppd for 40 yrs 2. FH of CAD in father 3. ANGELINA A. CPAP therapy 4. HTN History of present illness: 49 yo WM admitted for V. tach noted on 30 day monitor. Pt was sitting in his chair around the time of his documented event. He may have been asleep but is thinks he was awake. He denies any chest pain, palpitations or near syncope symptoms. He drinks about 32 oz of Mountain Dew in addition to coffee daily. Recently seen in our office for atypical chest pain with echo and lexiscan myoview essentially normal. He denies any recent fever, chills, nausea, vomiting or diarrhea. Labs and EKG this admission are WNL and normal sinus rhythm without acute umm nges, respectively. Telemetry overnight shows only NSR. No further arrhythmias. [facility] History Medical History: Reports:: Chronic Obstructive Pulmonary Disease (COPD) Denies:: Cancer, Diabetes Mellitus Type 1, Diabetes Mellitus Type 2, MRSA *Have you ever received a pneumonia vaccine?: Yes *Have you received a flu vaccine this season?: No Laterality Cases: Bilateral: Myringotomy (Ear Tubes), Tonsillectomy Other Surgeries: Yes: Other (INTESTINAL SX UNSURE WHAT) Amputation: No Fractures: No - *Social History Educational Level: Attended Grade School Smoking Status: Current every day smoker Tobacco Type: cigarettes # Packs/Day (cigarettes): 1 Alcohol Intake: never Alcohol Intake Frequency:: other Substance Use Type: crack/cocaine *Occupational Status:: employed Household Members: other *Travel in the last 8 weeks: None Family Hx:: Cancer, Coronary Artery Disease Meds Home Medications Medication Instructions Recorded Confirmed Type Albuterol Sulfate [Proventil-HFA 2 puffs IH Q6HP PRN 30 Days #1 puff 01/17/19 05/09/19 Rx 90mcg/puff Inh] Fluticasone/Umeclidin/Vilanter 1 puff IH DAILY 05/09/19 05/09/19 History [T[place]elliot Ellipta 100-62.5-25] Ipratropium/Albuterol Sulfate 3 ml IH Q3H 05/09/19 05/09/19 History [Duoneb 3mL neb] Lisinopril/Hydrochlorothiazide 1 each PO DAILY 05/09/19 05/09/19 History [Lisinopril-Hctz 10-12.5 mg Tab] Nicotine [Nicoderm 21mg/24hr 21 mg TD DAILY 05/09/19 05/09/19 History patch] Allergies Allergy/AdvReac Type Severity Reaction Status Date / Time No Known Allergies Allergy Verified 04/22/19 10:39 Review of Systems - Review of Systems Review of systems:: pertinent systems reviewed and negative unless documented below - *Cardiovascular Reports chest pain - *Respiratory Reports wheezing, Denies cough, Denies shortness of breath - *Gastrointestinal Denies change in stools, Denies nausea, Denies vomiting - *Genitourinary Denies blood in urine - *Musculoskeletal Denies joint pain, Denies back pain - *Neurologic Denies dizziness, Denies fainting Exam Vital signs and Labs for Last 24 Hours: Temp Pulse Resp BP Pulse Ox 98.5 F 76 20 121/64 93 L 05/09/19 08:00 05/09/19 08:00 05/09/19 08:00 05/09/19 08:00 05/09/19 08:00 Laboratory Results - last 24 hr 05/08/19 16:50: WBC 7.8, RBC 5.05, Hgb 15.5, Hct 50.3, MCV 99.6 H, MCH 30.6, MCHC 30.8 L, RDW 13.6, Plt Count 216, MPV 7.9, Neut % (Auto) 68.9, Lymph % (Auto) 18.1, [place] % (Auto) 10.6 H, Eos % (Auto) 2.0, Baso % (Auto) 0.4, Neut # (Auto) 5.4, Lymph # (Auto) 1.4, [place] # (Auto) 0.8, Eos # (Auto) 0.2, Baso # (Auto) 0.0 05/08/19 16:50: Sodium 142, Potassium 4.0, Chloride 101, Carbon Dioxide 32, Anion Gap 13.0, BUN 19 H, Creatinine 0.81, Estimated Creat Clear 170, Estimated GFR 101, Est GFR ( Amer) 123, Glucose 200 H, Calcium 8.8, Magnesium 1.6, Total Bilirubin 0.3, AST 18, ALT 26, Alkaline Phosphatase 117 H, Troponin I < 0.02, Total Protein 6.9, Albumin 3.1 L, Globulin 3.8 H, Albumin/Globulin Ratio 0.8 L, TSH 1.54 05/08/19 16:50: Hemoglobin A1c 6.9 05/08/19 22:05: Troponin I < 0.02 05/09/19 04:20: Troponin I < 0.02 05/09/19 04:20: WBC 7.7, RBC 4.97, Hgb 15.0, Hct 48.8, MCV 98.2 H, MCH 30.2, MCHC 30.8 L, RDW 13.6, Plt Count 208, MPV 7.7, Neut % (Auto) 63.6, Lymph % (Auto) 23.9, [place] % (Auto) 10.0 H, Eos % (Auto) 2.1, Baso % (Auto) 0.4, Neut # (Auto) 4.9, Lymph # (Auto) 1.8, [place] # (Auto) 0.8, Eos # (Auto) 0.2, Baso # (Auto) 0.0 05/09/19 04:20: Sodium 139, Potassium 3.9, Chloride 99, Carbon Dioxide 35 H, Anion Gap 8.9, BUN 15, Creatinine 0.59 L D, Estimated Creat Clear 229, Estimated GFR 146, Est GFR ( Amer) 177 D, Glucose 135 H D, Calcium 8.0 L, Phosphorus 3.3, Magnesium 1.7, Total Bilirubin 0.4, AST 14 L, ALT 24, Alkaline Phosphatase 107, Total Protein 6.6, Albumin 3.0 L, Globulin 3.6 H, Albumin/Globulin Ratio 0.8 L, Triglycerides 81, Cholesterol 133 L, LDL Cholesterol 82, VLDL Cholesterol 16, HDL Cholesterol 35, Cholesterol/HDL Ratio 3.8 H I & O for Last 24 hours: Intake & Output 05/06/19 05/07/19 05/08/19 05/09/19 11:59 11:59 11:59 11:59 Intake Total 501 / 501 Output Total 550 / 550 Balance -49 / -49 Weight 238 lb 4 oz - *Routine HEENT Exam Head: Present: normocephalic Eye: Present: EOMI, PERRL ENT: Present: mucous membranes moist - *Routine Neck Exam Present: supple. Absent: JVD, carotid bruit - *Routine Respiratory Exam Present: CTA bilaterally. Absent: accessory muscle use, rales, rhonchi, wheezes - *Routine Cardiovascular Exam Present: RRR. Absent: murmur, gallop, rubs - *Routine Abdominal Exam Present: soft. Absent: tenderness, distended, guarding - *Routine Extremities Exam Absent: edema, calf tenderness - *Routine Neurological Exam Present: alert, oriented X3, moving all extremities Assessment and Plan (1) Ventricular tachycardia (paroxysmal) Current visit: Yes Status: Acute Category: Medical Code(s): I47.2 - Ventricular tachycardia (2) Hypertension Current visit: Yes Status: Acute Category: Medical Code(s): I10 - Essential (primary) hypertension (3) Tobacco abuse Current visit: No Status: Chronic Category: Medical Code(s): Z72.0 - Tobacco use - Assessment and plan all Dx Assessment and Plan for all problems:: 1. Asymptomatic, monomorphic ventricular tachycardia less than 30 seconds in duration. Recent normal stress test and echocardiogram with normal electrolytes and chest x-ray this admission. Recommend low-dose beta-ron therapy in the form of metoprolol tartrate 12.5 mg twice daily and continue his lisinopril/HCTZ. 2. Continue his 30-day event monitor. 3. Reduce caffeine intake 4. Continue to wear his CPAP therapy 5. Okay for discharge from cardiology standpoint. Patient has an appointment in our office on 05/26/2019.
--- NOTE | 2019-05-09 08:31 | H&P/Discharge Summary ---
General - General Admission date:: 05/08/19 Discharge date: 05/09/19 *Admission Date: 05/08/19 *Chief complaint: Abnormal Holter monitor *History of present illness: 49-year-old white male with history of COPD, tobacco abuse and hypertension who had a Holter monitor placed and when this was removed respiratory therapy noted a 10 beat run of V. tach and he was referred to the emergency department. Evaluation there was essentially unremarkable with normal troponins, normal electrolytes and a normal chest x-ray and normal twelve-lead EKG, admitted overnight for observation and cardiology evaluation. [facility] History I have reviewed the patient's past medical history: Yes Medical History: Reports:: Chronic Obstructive Pulmonary Disease (COPD) Denies:: Cancer, Diabetes Mellitus Type 1, Diabetes Mellitus Type 2, MRSA *Have you ever received a pneumonia vaccine?: Yes *Have you received a flu vaccine this season?: No Laterality Cases: Bilateral: Myringotomy (Ear Tubes), Tonsillectomy Other Surgeries: Yes: Other (INTESTINAL SX UNSURE WHAT) Amputation: No Fractures: No - *Social History Educational Level: Attended Grade School Smoking Status: Current every day smoker Tobacco Type: cigarettes # Packs/Day (cigarettes): 1 Alcohol Intake: never Alcohol Intake Frequency:: other Substance Use Type: crack/cocaine *Occupational Status:: employed Household Members: other *Travel in the last 8 weeks: None Family Hx:: Cancer, Coronary Artery Disease Review of Systems - Review of Systems Review of systems:: pertinent systems reviewed and negative unless documented below Overall patient feels entirely well. Denies any kind of cardiac, pulmonary or GI symptoms at this point. Exam Vital signs and Labs for Last 24 Hours: Temp Pulse Resp BP Pulse Ox 98.5 F 76 20 121/64 93 L 05/09/19 08:00 05/09/19 08:00 05/09/19 08:00 05/09/19 08:00 05/09/19 08:00 Laboratory Results - last 24 hr 05/08/19 16:50: WBC 7.8, RBC 5.05, Hgb 15.5, Hct 50.3, MCV 99.6 H, MCH 30.6, MCHC 30.8 L, RDW 13.6, Plt Count 216, MPV 7.9, Neut % (Auto) 68.9, Lymph % (Auto) 18.1, [place] % (Auto) 10.6 H, Eos % (Auto) 2.0, Baso % (Auto) 0.4, Neut # (Auto) 5.4, Lymph # (Auto) 1.4, [place] # (Auto) 0.8, Eos # (Auto) 0.2, Baso # (Auto) 0.0 05/08/19 16:50: Sodium 142, Potassium 4.0, Chloride 101, Carbon Dioxide 32, Anion Gap 13.0, BUN 19 H, Creatinine 0.81, Estimated Creat Clear 170, Estimated GFR 101, Est GFR ( Amer) 123, Glucose 200 H, Calcium 8.8, Magnesium 1.6, Total Bilirubin 0.3, AST 18, ALT 26, Alkaline Phosphatase 117 H, Troponin I < 0.02, Total Protein 6.9, Albumin 3.1 L, Globulin 3.8 H, Albumin/Globulin Ratio 0.8 L, TSH 1.54 05/08/19 16:50: Hemoglobin A1c 6.9 05/08/19 22:05: Troponin I < 0.02 05/09/19 04:20: Troponin I < 0.02 05/09/19 04:20: WBC 7.7, RBC 4.97, Hgb 15.0, Hct 48.8, MCV 98.2 H, MCH 30.2, MCHC 30.8 L, RDW 13.6, Plt Count 208, MPV 7.7, Neut % (Auto) 63.6, Lymph % (Auto) 23.9, [place] % (Auto) 10.0 H, Eos % (Auto) 2.1, Baso % (Auto) 0.4, Neut # (Auto) 4.9, Lymph # (Auto) 1.8, [place] # (Auto) 0.8, Eos # (Auto) 0.2, Baso # (Auto) 0.0 05/09/19 04:20: Sodium 139, Potassium 3.9, Chloride 99, Carbon Dioxide 35 H, Anion Gap 8.9, BUN 15, Creatinine 0.59 L D, Estimated Creat Clear 229, Estimated GFR 146, Est GFR ( Amer) 177 D, Glucose 135 H D, Calcium 8.0 L, Phosphorus 3.3, Magnesium 1.7, Total Bilirubin 0.4, AST 14 L, ALT 24, Alkaline Phosphatase 107, Total Protein 6.6, Albumin 3.0 L, Globulin 3.6 H, Albumin/Globulin Ratio 0.8 L, Triglycerides 81, Cholesterol 133 L, LDL Cholesterol 82, VLDL Cholesterol 16, HDL Cholesterol 35, Cholesterol/HDL Ratio 3.8 H I & O for Last 24 hours: Intake & Output 05/06/19 05/07/19 05/08/19 05/09/19 11:59 11:59 11:59 11:59 Intake Total 501 / 501 Output Total 550 / 550 Balance -49 / -49 Weight 238 lb 4 oz - Constitutional no acute distress, obese - *Routine HEENT Exam Head: Present: normocephalic Eye: Present: EOMI, PERRL ENT: Present: mucous membranes moist - *Routine Neck Exam Present: supple. Absent: lymphadenopathy - *Routine Respiratory Exam Present: CTA bilaterally - *Routine Cardiovascular Exam Present: RRR - *Routine Abdominal Exam Present: soft, normoactive bowel sounds. Absent: tenderness - *Routine Extremities Exam Absent: cyanosis, clubbing, edema Hospital Course Hospital Course: Patient was admitted overnight. Ruled out for GA, cardiology consult reviewed and appreciated. Plan will be to discharge patient on low-dose beta-ron, close follow-up as scheduled on May 22. Discussed with patient cutting back caffeine and continuing other medications. Results Labs on day of discharge: Labs from last 24 hours 05/09/19 05/09/19 05/09/19 04:20 04:20 04:20 WBC 7.7 RBC 4.97 Hgb 15.0 Hct 48.8 MCV 98.2 H MCH 30.2 MCHC 30.8 L RDW 13.6 Plt Count 208 MPV 7.7 Neut % (Auto) 63.6 Lymph % (Auto) 23.9 [place] % (Auto) 10.0 H Eos % (Auto) 2.1 Baso % (Auto) 0.4 Neut # (Auto) 4.9 Lymph # (Auto) 1.8 [place] # (Auto) 0.8 Eos # (Auto) 0.2 Baso # (Auto) 0.0 Sodium 139 Potassium 3.9 Chloride 99 Carbon Dioxide 35 H Anion Gap 8.9 BUN 15 Creatinine 0.59 L D Estimated Creat Clear 229 Estimated GFR 146 Est GFR ( Amer) 177 D Glucose 135 H D Hemoglobin A1c Calcium 8.0 L Phosphorus 3.3 Magnesium 1.7 Total Bilirubin 0.4 AST 14 L ALT 24 Alkaline Phosphatase 107 Troponin I < 0.02 Total Protein 6.6 Albumin 3.0 L Globulin 3.6 H Albumin/Globulin Ratio 0.8 L Triglycerides 81 Cholesterol 133 L LDL Cholesterol 82 VLDL Cholesterol 16 HDL Cholesterol 35 Cholesterol/HDL Ratio 3.8 H TSH 05/08/19 05/08/19 05/08/19 22:05 16:50 16:50 WBC RBC Hgb Hct MCV MCH MCHC RDW Plt Count MPV Neut % (Auto) Lymph % (Auto) [place] % (Auto) Eos % (Auto) Baso % (Auto) Neut # (Auto) Lymph # (Auto) [place] # (Auto) Eos # (Auto) Baso # (Auto) Sodium 142 Potassium 4.0 Chloride 101 Carbon Dioxide 32 Anion Gap 13.0 BUN 19 H Creatinine 0.81 Estimated Creat Clear 170 Estimated GFR 101 Est GFR ( Amer) 123 Glucose 200 H Hemoglobin A1c 6.9 Calcium 8.8 Phosphorus Magnesium 1.6 Total Bilirubin 0.3 AST 18 ALT 26 Alkaline Phosphatase 117 H Troponin I < 0.02 < 0.02 Total Protein 6.9 Albumin 3.1 L Globulin 3.8 H Albumin/Globulin Ratio 0.8 L Triglycerides Cholesterol LDL Cholesterol VLDL Cholesterol HDL Cholesterol Cholesterol/HDL Ratio TSH 1.54 05/08/19 16:50 WBC 7.8 RBC 5.05 Hgb 15.5 Hct 50.3 MCV 99.6 H MCH 30.6 MCHC 30.8 L RDW 13.6 Plt Count 216 MPV 7.9 Neut % (Auto) 68.9 Lymph % (Auto) 18.1 [place] % (Auto) 10.6 H Eos % (Auto) 2.0 Baso % (Auto) 0.4 Neut # (Auto) 5.4 Lymph # (Auto) 1.4 [place] # (Auto) 0.8 Eos # (Auto) 0.2 Baso # (Auto) 0.0 Sodium Potassium Chloride Carbon Dioxide Anion Gap BUN Creatinine Estimated Creat Clear Estimated GFR Est GFR ( Amer) Glucose Hemoglobin A1c Calcium Phosphorus Magnesium Total Bilirubin AST ALT Alkaline Phosphatase Troponin I Total Protein Albumin Globulin Albumin/Globulin Ratio Triglycerides Cholesterol LDL Cholesterol VLDL Cholesterol HDL Cholesterol Cholesterol/HDL Ratio TSH DS: Diagnosis - Discharge Diagnosis (1) Hypertension Status: Acute (2) Ventricular tachycardia (paroxysmal) Status: Acute Discharge Plan - Patient Discharge Instructions ACTIVITY: Continue current activity DIET: continue same diet Patient Instructions: Angina, Tachycardia, Heart-Healthy Diet, DI for Angina, DI for Atrial Fibrillation, Heart Healthy Physical Activity, DI for Palpitations - Follow up Plan Follow up with: Sedrick López MD [Primary Care Provider] - 05/22/19 Disposition: Home, Self-Correction Medications: Home Medications Medication Instructions Recorded Confirmed Type Albuterol Sulfate [Proventil-HFA 2 puffs IH Q6HP PRN 30 Days #1 puff 01/17/19 05/09/19 Rx 90mcg/puff Inh] Fluticasone/Umeclidin/Vilanter 1 puff IH DAILY 05/09/19 05/09/19 History [Trelegy Ellipta 100-62.5-25] Ipratropium/Albuterol Sulfate 3 ml IH Q3H 05/09/19 05/09/19 History [Duoneb 3mL neb] Lisinopril/Hydrochlorothiazide 1 each PO DAILY 05/09/19 05/09/19 History [Lisinopril-Hctz 10-12.5 mg Tab] Metoprolol Tartrate [Lopressor 25 mg PO BID #30 tab 05/09/19 Rx 25mg tablet] Nicotine [Nicoderm 21mg/24hr 21 mg TD DAILY 05/09/19 05/09/19 History patch] Prescriptions/Medication Reconciliation: New Metoprolol Tartrate [Lopressor 25mg tablet] 25 mg PO BID #30 tab Continued Albuterol Sulfate [Proventil-HFA 90mcg/puff Inh] 2 puffs IH Q6HP PRN 30 Days #1 puff PRN Reason: Shortness Of Breath Lisinopril/Hydrochlorothiazide [Lisinopril-Hctz 10-12.5 mg Tab] 1 each PO DAILY Fluticasone/Umeclidin/Vilanter [Trelegy Ellipta 100-62.5-25] 1 puff IH DAILY Ipratropium/Albuterol Sulfate [Duoneb 3mL neb] 3 ml IH Q3H Nicotine [Nicoderm 21mg/24hr patch] 21 mg TD DAILY - Problem Reconciliation Problems Reviewed?: Yes
--- NOTE | 2019-05-09 11:25 | Electrocardiograph Report ---
APPROVED REPORT Exam: Resting ECG HR:99 bpm ECG Measurements Heart Rate 99 AXES VA 140 P 73 QRSd 94 QRS 56 QT 336 T71 QTc 431 <Conclusion> Normal sinus rhythm Normal ECG Electronically signed by : Antoine Sexton, 05/09/2019 11:24:30
== END 2019-05-09 10:12 | disposition home or self-care (01) ==
LOC: ER 16:28 → 2ND 16:28
PROVIDERS: ADMIT Internal Medicine Adolescent Medicine; ATTEND Internal Medicine Adolescent Medicine
CPT/HCPCS: 36415; 71020; 71046; 80053; 80061; 83036; 83735; 84100; 84443; 84484; 85025; 90686; 93005; 99284; G0378

== ENCOUNTER → 2021-01-21 10:53 | Outpatient (CLI) | payer BC, SELFPAY ==
[2021-01-21 11:19] LABS: Basophils # 0.1 K/mm3 (0-0.2); Basophils % 0.6 % (0.1-2.0); Eosinophils # 0.2 K/mm3 (0.0-0.4); Eosinophils % 2.3 % (0.1-12.0); Hemoglobin 15.8 g/dL (14.1-18.0); Lymphocytes # 1.4 K/mm3 (0.7-4.5); Lymphocytes % 19.8 % (10-50); Mean Corpuscular HGB Conc 31.6 g/dL (31.8-35.4); Mean Corpuscular Hemoglobin 30.4 pg (27.0-31.2); Mean Corpuscular Volume 96.2 fl (80-94); Mean Platelet Volume 7.9 fl (7.4-10.4); Monocytes # 0.7 K/mm3 (0.1-1.0); Monocytes % 9.1 % (1.7-9.3); Neutrophils # 4.9 K/mm3 (1.8-7.8); Neutrophils % 68.1 % (37.0-80.0); Platelet Count 224 K/mm3 (142-424); Red Blood Count 5.19 M/mm3 (4.60-6.20); Red Cell Distribution Width 13.8 % (11.5-17.5); White Blood Count 7.2 K/mm3 (4.8-10.8)
[2021-01-21 12:20] LABS: Hemoglobin A1C 5.6 % (4.0-6.0)
[2021-01-21 13:17] LABS: Chloride 99 mmol/L (98-107); Potassium 4.6 mmoL/L (3.5-5.1); Sodium 141 mmol/L (136-145)
[2021-01-21 13:19] LABS: Alanine Aminotransferase 26 U/L (12-78); Aspartate Amino Transferase 29 U/L (17-59); Blood Urea Nitrogen 13 mg/dl (9-20); Estimated Glomerular Filt Rate 119 ml/min (>60); GFR (African American) 144 ML/MIN (>60)
[2021-01-21 13:20] LABS: Albumin Level 4.3 g/dl (3.5-5.0); Albumin/Globulin Ratio 1.6 (1.1-1.8); Alkaline Phosphatase 108 U/L (38-126); Anion Gap 14.6 mEq/L (5-15); Bilirubin,Total 0.4 mg/dl (0.2-1.3); Calcium 9.1 mg/dl (8.4-10.2); Carbon Dioxide 32 mmol/L (22.0-30.0); Chol/HDL Ratio 2.8 (1-3.5); Cholesterol 118 mg/dl (140-200); Globulin 2.7 g/dL (1.3-3.2); Glucose 123 mg/dl (74-100); HDL Cholesterol 42 mg/dl (40-60); Triglycerides 97 mg/dl (30-150); VLDL Cholesterol 19 mg/dL (0-40)
[2021-01-21 13:31] LABS: Direct LDL Cholesterol 56.13 mg/dL (100-129)
== END ==
PROVIDERS: Visit Provider Internal Medicine Adolescent Medicine
DX: E11.9 Type 2 diabetes mellitus without complications (principal); I10 Essential (primary) hypertension
CPT/HCPCS: 36415; 80053; 80061; 83036; 85025

== ENCOUNTER → 2022-03-03 12:18 | Outpatient (CLI) | payer MEDICARE, BC, SELFPAY ==
--- NOTE | 2022-03-03 12:44 | CT_ITS ---
FINAL REPORT CLINICAL HISTORY: H/O NICOTINE DEPENDENCE. smoker. 1 ppd x 41 years. COPD FINDINGS: Low-Dose Chest CT CTDI vol (mGy): 2.90 DLP (mGy-cm): 104.73 Axial images were obtained from the lung apex to the mid abdomen by computed tomography. Low-dose protocol was utilized. FINDINGS: CHEST: There is no axillary adenopathy. There are small scattered mediastinal lymph nodes some of which are calcified. The heart is proper size. There is no pericardial or pleural effusion. Limited images of the upper abdomen are unremarkable. Lung window images demonstrate no suspicious infiltrate or nodule. There are calcified granulomas in the right lung. IMPRESSION: Lung RADS category 1. Recommend 12 month follow-up low-dose chest CT. Reviewed, Interpreted and Dictated by Cornelius Overton MD Transcribed by Chano Ortez Authenticated and [facility]
== END ==
PROVIDERS: PCP Internal Medicine Adolescent Medicine; Visit Provider Nurse Practitioner Family
DX: Z87.891 Personal history of nicotine dependence (principal); Z12.2 Encounter for screening for malignant neoplasm of respiratory organs
CPT/HCPCS: 71271

== ENCOUNTER 2022-04-29 12:44 | Emergency (ER) | payer MEDICARE, BC, SELFPAY ==
[2022-04-29] VITALS (40 sets, daily range): BP systolic 83–215; BP diastolic 39–190; PULSE 63–100; RESP 16–33; TEMP 36.5–36.6; O2SAT 47–100; BMI 45.7; BMI 38.0
--- NOTE | 2022-04-29 12:52 | PC.NURSE ---
1252 ED AT BEDSIDE TO ASSESS PT
--- NOTE | 2022-04-29 12:55 | PC.NURSE ---
rad called for CT
--- NOTE | 2022-04-29 12:56 | ECG_ITS ---
APPROVED REPORT Exam: Resting ECG HR:95 bpm ECG Measurements Heart Rate 95 AXES MD 124 P 70 QRSd 102 QRS 52 QT 367 T 61 QTc 420 Conclusion SINUS RHYTHM WITH OCCASIONAL ECTOPIC PREMATURE COMPLEXES SEPTAL MYOCARDIAL INFARCTION , OF INDETERMINATE AGE [40+ ms Q WAVE IN V1/V2] ABNORMAL ECG UNCONFIRMED REPORT Electronically signed by : Antoine Sexton MD 05/01/2022 19:46:58
--- NOTE | 2022-04-29 12:57 | CT_ITS ---
PROCEDURE INFORMATION: Exam: CTA Chest With Contrast Exam date and time: 04/29/2022 1:08 PM Age: 52 years old Clinical indication: Shortness of breath and tachypnea; Additional info: Tachycardia, acute hypoxia TECHNIQUE: Imaging protocol: Computed tomographic angiography of the chest with contrast. 3D rendering (Not supervised by radiologist): MIP and/or 3D reconstructed images were created by the technologist. Radiation optimization: All CT scans at this facility use at least one of these dose optimization techniques: automated exposure control; mA and/or kV adjustment per patient size (includes targeted exams where dose is matched to clinical indication); or iterative reconstruction. Contrast material: ISOVUE; Contrast volume: 70 ml; Contrast route: INTRAVENOUS (IV); COMPARISON: CT LUNG SCREENING 03/03/2022 12:47 PM FINDINGS: Pulmonary arteries: No evidence of pulmonary embolus to the segmental level. Aorta: No aneurysm of the aorta. No dissection of the aorta. Lungs: Calcified granulomas in the right lower lobe. Mild opacities in the right lower lobe may represent atelectasis or pneumonia.. Pleural spaces: Unremarkable. No pneumothorax. No pleural effusion. Heart: Unremarkable. No cardiomegaly. No pericardial effusion. Lymph nodes: Unremarkable. No enlarged lymph nodes. Bones/joints: Unremarkable. No acute fracture. Soft tissues: Unremarkable. IMPRESSION: 1. No evidence of pulmonary embolus to the segmental level. 2. No aneurysm of the aorta. 3. No dissection of the aorta. 4. Mild opacities in the right lower lobe may represent atelectasis or pneumonia..
--- NOTE | 2022-04-29 12:57 | PC.NURSE ---
ER MD at bedside upon pt arrival, two EKG's done, MD requests another once he has returned from rad.
--- NOTE | 2022-04-29 13:02 | HMH.EDGENADL ---
Discharge Plan Disposition Patient Disposition: Xfer Short-Term Hosp Condition: Critical Chief Complaint: Shortness of Breath/Dyspnea Prescriptions Prescriptions: No Action quetiapine [Seroquel] 100 mg tablet 100 mg PO QHS Qty: 30 1RF paroxetine HCl [Paxil] 40 mg tablet 40 mg PO DAILY Qty: 30 1RF Rexulti 2 mg tablet 2 mg PO DAILY Qty: 30 1RF lamotrigine 25 mg tablet 25 mg PO omeprazole 40 mg capsule,delayed release(DR/EC) 40 mg PO atorvastatin 10 mg tablet 10 mg PO DAILY metformin 500 mg tablet 500 mg PO DAILY bupropion HCl 150 mg tablet sustained-release 12 hr 150 mg PO metoprolol tartrate 25 mg tablet 12.5 mg PO BID Qty: 30 0RF Rx Instructions: 1/2 tab bid. Needs follow up appt for additional refills. ipratropium-albuterol 3 ML solution for nebulization 3 ml inhalation Q3H nicotine 21 MG/PATCH patch 24 hour 21 mg transdermal DAILY Label Comments: APPLY 1 PATCH TOPICALLY EVERY DAY DIRECTED lisinopril-hydrochlorothiazide 1 EACH tablet 1 each PO DAILY [id number] 1 EACH blister with device 1 puff inhalation DAILY albuterol sulfate 200 PUFFS HFA aerosol inhaler 2 puffs inhalation Q6HP PRN (Reason: Shortness Of Breath) 30 Days Qty: 1 2RF Referrals Follow up/Referrals: Floresita Grier APRN [Primary Care Provider] - See instructions Clinical Impressions Clinical Impression: Respiratory failure, Acute exacerbation of chronic obstructive pulmonary disease, Acidosis, Sepsis Discharge ED Provider: Ancelmo Badillo General Adult HPI General Chief complaint: Shortness of Breath/Dyspnea Stated complaint: SOA Time Seen by Provider: 04/29/22 13:02 History of Present Illness HPI narrative: Patient is a 52-year-old male with past medical history of insulin-dependent diabetes, COPD not on home oxygen who presents emergency department for evaluation of shortness of breath. Onset was acute, occurring 3 days ago, progressively worsening. Patient has an associated cough and lightheadedness as well as dyspnea on exertion. Patient denies chest pain, abdominal pain. No other acute complaints at this time. Patient states his fingerstick blood glucose has been in the 150s. Denies vomiting. Related Data Home Medications Medication Instructions Recorded Confirmed fluticasone fur. 100 mcg-umeclid 1 puff inhalation DAILY COPD 05/09/19 03/28/22 62.5 mcg-vilant 25 mcg inhalat.powder ipratropium 0.5 mg-albuterol 3 mg 3 ml inhalation Q3H COPD 05/09/19 03/28/22 (2.5 mg base)/3 mL nebulization soln lisinopril 10 1 each PO DAILY High blood pressure 05/09/19 03/28/22 mg-hydrochlorothiazide 12.5 mg tablet nicotine 21 mg/24 hr daily 21 mg transdermal DAILY Smoking 05/09/19 03/28/22 transdermal patch Cessation atorvastatin 10 mg tablet 10 mg PO DAILY 03/01/22 03/28/22 bupropion HCl 150 mg tablet,12 hr 150 mg PO 03/01/22 03/28/22 sustained-release lamotrigine 25 mg tablet 25 mg PO 03/01/22 03/28/22 metformin 500 mg tablet 500 mg PO DAILY 03/01/22 03/28/22 omeprazole 40 mg capsule,delayed 40 mg PO 03/01/22 03/28/22 release Previous Rx's Medication Instructions Recorded albuterol sulfate 90 mcg/actuation 2 puffs inhalation Q6HP PRN 01/17/19 aerosol inhaler Shortness Of Breath 30 days #1 puff metoprolol tartrate 25 mg tablet 12.5 mg PO BID #30 tabs 11/28/19 brexpiprazole 2 mg tablet (Rexulti) 2 mg PO DAILY #30 tabs 04/27/22 paroxetine HCl 40 mg tablet (Paxil) 40 mg PO DAILY #30 tabs 04/27/22 quetiapine 100 mg tablet (Seroquel) 100 mg PO QHS #30 tabs 04/27/22 Allergies Allergy/AdvReac Type Severity Reaction Status Date / Time No Known Allergies Allergy Verified 03/28/22 11:09 [facility] Medical History (Updated 04/29/22 @ 17:34 by Ancelmo Badillo MD) Bipolar I disorder Chest pain Dizziness Insomnia Palpitations Social History Smoking Status: Current every
--- NOTE | 2022-04-29 13:05 | PC.NURSE ---
PT TRANSPORTED TO RADIOLOGY.
--- NOTE | 2022-04-29 13:05 | PC.NURSE ---
RT made aware of orders for continuos neb once pt is back from rad.
--- NOTE | 2022-04-29 13:07 | PC.NURSE ---
CALLED RESPIRATORY ABOUT VBG.
[2022-04-29 13:09] LABS: Adenovirus,PCR Not Detected (NotDetected); Bordetella Pertussis Not Detected (NotDetected); Chlamydophila Pneumoniae, PCR Not Detected (NotDetected); Coronavirus 19, PCR Not Detected (NotDetected); Coronavirus 229E Not Detected (NotDetected); Coronavirus NL63 Not Detected (NotDetected); Coronavirus OC43 Not Detected (NotDetected); Coronovirus HKU1,PCR Not Detected (NotDetected); Human Metapneumovirus Not Detected (NotDetected); Influenza A, PCR Not Detected (NotDetected); Influenza AH1, 2009 Not Detected (NotDetected); Influenza AH1, PCR Not Detected (NotDetected); Influenza AH3,PCR Not Detected (NotDetected); Influenza B, PCR Not Detected (NotDetected); Mycoplasma Pneumoniae, PCR Not Detected (NotDetected); Parainfluenza 2, PCR Not Detected (NotDetected); Parainfluenza 3, PCR Not Detected (NotDetected); Parainfluenza 4, PCR Not Detected (NotDetected); Respiratory Syncytial Virus Not Detected (NotDetected); Rhinovirus/Enterovirus Not Detected (NotDetected)
--- NOTE | 2022-04-29 13:14 | PC.NURSE ---
PT TRANSPORTED BACK FROM RADIOLOGY.
[2022-04-29 13:16] LABS: Basophils # 0.3 K/mm3 (0-0.2); Basophils % 4.8 % (0.1-2.0); Eosinophils % 0.3 % (0.1-12.0); Hematocrit 51.7 % (42.0-52.0); Hemoglobin 15.4 g/dL (14.1-18.0); Lymphocytes # 0.8 K/mm3 (0.7-4.5); Lymphocytes % 14.6 % (10-50); Mean Corpuscular HGB Conc 29.9 g/dL (31.8-35.4); Mean Corpuscular Hemoglobin 28.6 pg (27.0-31.2); Mean Corpuscular Volume 95.7 fl (80-94); Mean Platelet Volume 8.1 fl (7.4-10.4); Monocytes # 0.9 K/mm3 (0.1-1.0); Monocytes % 15.2 % (1.7-9.3); Neutrophils # 3.9 K/mm3 (1.8-7.8); Platelet Count 227 K/mm3 (142-424); Red Cell Distribution Width 14.1 % (11.5-17.5); White Blood Count 5.6 K/mm3 (4.8-10.8)
[2022-04-29 13:16] LABS: VBG Base Excess 2.7 mmol/L (-2.4-2.3); VBG HCO3 30.5 mmol/L (23-30); VBG Oxygen Saturation 93.7 % (50-70); VBG PCO2 77.4 mmol/L (35-51); VBG PH 7.21 mmol/L (7.31-7.41); VBG PO2 69.1 mmol/L (28-40); VBG Total CO2 32.9 mmol/L (23-27)
[2022-04-29 13:21] LABS: POC Glucose,Bedside 173 (70-110)
--- NOTE | 2022-04-29 13:24 | PC.NURSE ---
1320 RN AT BEDSIDE TO ASK PT ADDITIONAL HEALTH INFORMATION. PT AWAKE BUT VERY DROWSY. PT MUMBLES AND IS UNABLE TO MAKE COMPLETE SENTENCES OR ANSWER MUCH MORE THAN YES OR NO QUESTIONS. MD REQUESTED AT BEDSIDE. DR. BOOTH AT BEDSIDE TO REEVALUATE PT. PT FOLLOWS COMMANDS BUT REMAINS DROWSY
[2022-04-29 13:25] LABS: Alanine Aminotransferase 39 U/L (12-78); Albumin Level 4.5 g/dl (3.5-5.0); Albumin/Globulin Ratio 1.2 (1.1-1.8); Alkaline Phosphatase 148 U/L (38-126); Anion Gap 17.3 mEq/L (5-15); Aspartate Amino Transferase 41 U/L (17-59); Bilirubin,Total 0.3 mg/dl (0.2-1.3); Blood Urea Nitrogen 37 mg/dl (9-20); Calcium 8.7 mg/dl (8.4-10.2); Carbon Dioxide 36 mmol/L (22.0-30.0); Chloride 93 mmol/L (98-107); Creatinine Clearance Estimated 87 mL/min (50-200); Estimated Glomerular Filt Rate 46 ml/min (>60); GFR (African American) 55 ML/MIN (>60); Globulin 3.7 g/dL (1.3-3.2); Glucose 186 mg/dl (74-100); Lactic Acid 2.1 mmol/L (0.7-2.1); Potassium 4.3 mmoL/L (3.5-5.1); Sodium 142 mmol/L (136-145); Total Protein,Serum 8.2 g/dl (6.3-8.2)
--- NOTE | 2022-04-29 13:29 | PC.NURSE ---
RESPIRATORY AT BEDSIDE TO SET-UP BI-PAP
[2022-04-29 13:31] LABS: C-Reactive Protein 49.4 mg/L (0-4)
[2022-04-29 13:35] LABS: Coronavirus 19, PCR Not Detected (NotDetected); Influenza A, PCR Not Detected (NotDetected); Influenza B, PCR Not Detected (NotDetected)
--- NOTE | 2022-04-29 13:36 | PC.NURSE ---
speaking to reny
[2022-04-29 13:39] LABS: Troponin I < 0.01 ng/ml (0.00-0.034)
--- NOTE | 2022-04-29 13:46 | PC.NURSE ---
requesting respiratory come back down to adjust settings
[2022-04-29 13:58] LABS: VBG Base Excess 3.9 mmol/L (-2.4-2.3); VBG Oxygen Saturation 96.8 % (50-70); VBG PO2 111.7 mmol/L (28-40)
[2022-04-29 14:00] LABS: VBG PCO2 100.2 mmol/L (35-51); VBG PH 7.14 mmol/L (7.31-7.41)
--- NOTE | 2022-04-29 14:01 | ECG_ITS ---
APPROVED REPORT Exam: Resting ECG HR:93 bpm ECG Measurements Heart Rate 93 AXES MI 148 P 78 QRSd 104 QRS 50 QT 362 T 65 QTc 412 Conclusion SINUS RHYTHM SEPTAL MYOCARDIAL INFARCTION , OF INDETERMINATE AGE [40+ ms Q WAVE IN V1/V2] ABNORMAL ECG UNCONFIRMED REPORT Electronically signed by : Antoine Sexton MD 05/01/2022 19:46:53
--- NOTE | 2022-04-29 14:03 | PC.NURSE ---
Repeat EKG done at 1401
--- NOTE | 2022-04-29 14:03 | PC.NURSE ---
MD at bedside preparing to intubate.
--- NOTE | 2022-04-29 14:22 | HMH.ITSTN ---
went to get patient for CT was previously given contrast for PE chest-- Dr wanted to wait and speak to [facility]-- CT head on hold since he had contrast already-- wait for confirmation and to stabilize pt
--- NOTE | 2022-04-29 14:25 | PC.NURSE ---
Spoke with Floresita in pharmacy about a fentynal drip
--- NOTE | 2022-04-29 14:26 | XR_ITS ---
PROCEDURE INFORMATION: Exam: XR Chest Exam date and time: 04/29/2022 2:46 PM Age: 52 years old Clinical indication: Other: Tube placement; Additional info: Tube confirmation TECHNIQUE: Imaging protocol: Radiologic exam of the chest. Views: 4 or more views. COMPARISON: CT ANGIO CHEST PE PROTOCOL 04/29/2022 1:08 PM FINDINGS: Tubes, catheters and devices: Endotracheal tube terminates 5 cm above the ivanna. Overlying EKG wires Lungs: Mild opacities in the lower lobes may represent atelectasis or pneumonia.. Pleural spaces: Unremarkable. No pleural effusion. No pneumothorax. Heart/Mediastinum: Unremarkable. No cardiomegaly. Bones/joints: Unremarkable. IMPRESSION: Mild opacities in the lower lobes may represent atelectasis or pneumonia..
--- NOTE | 2022-04-29 14:37 | PC.NURSE ---
pharmacy naila on the phone with [facility] confirming fentynal drip dosing
--- NOTE | 2022-04-29 15:25 | PC.NURSE ---
DAVON ARREOLA speaking with [facility] pharmacy at this time.
--- NOTE | 2022-04-29 15:44 | PC.NURSE ---
RT at bedside with
[2022-04-29 15:54] LABS: Parainfluenza 1, PCR Detected (NotDetected)
[2022-04-29 15:55] LABS: VBG HCO3 23.9 mmol/L (23-30); VBG Oxygen Saturation 97.9 % (50-70); VBG PCO2 45.7 mmol/L (35-51); VBG PH 7.34 mmol/L (7.31-7.41); VBG PO2 202.2 mmol/L (28-40); VBG Total CO2 25.3 mmol/L (23-27)
--- NOTE | 2022-04-29 16:27 | PC.NURSE ---
1350 VBG SENT TO RESPIRATORY 1355 PT MOVED TO ROOM 2, FOR FURTHER EVALUATION, RN X [address] BOOTH AT BEDSIDE WELL RESPIRATORY. SUPPLIES GATHERED FOR INTUBATION, BI-PAP REMAINS IN PLACE 1400 ZOLL MONITOR AND PADS PLACED ON PT. 1407 89/39 B/P, PT TOLERATING BI-PAP HR 91, O2 SAT 95 RESP 23. PT MORE ALERT 1410 ED MD DISCUSSED WITH PT ABOUT POC AND INTUBATION. PT AGREES WITH POC AND AGREES TO INTUBATION 1412 PHARMACY PAGED FOR MEDS 1414 ETOMIDATE 20 MG GIVEN PER MD ORDER 1415 SUCCINYLCHOLINE 100MG GIVEN PER MD PUSH 1417 PT INTUBATED AT THIS TIME 7.5 ET, 22 AT THE LIP. COLOR CHANGE IN CO2 DETECTOR, BILATERAL BREATH SOUNDS TO AUSCULTATION, EQUAL CHEST RISE AND FALL. VENT SETTING PER RESPIRATORY 1419 XR AT BEDSIDE FOR CXR, RN X 2, RESPIRATORY AND ED MD REMAIN AT BEDSIDE. 1425 FENTANYL DRIP STARTED AT 5MCG/HR PER VERBAL MD ORDER 1435 PROPOFOL STARTED AT 10ML/HR 1500 PT HYPOTENSIVE, RN AND ED MD AT BEDSIDE 1505 FENTANYL AND PROPOFOL OFF PER MD ORDER 1510 IVF BOLUS STARTED AT THIS TIME 1519 NARCAN 0.4 MG GIVEN IV PER MD ORDER R/T HYPOTENSION AFTER RECENT OPIODS 1525 SINCLAIR PLACED, UA SENT TO LAB 1535 NG TUBE PLACED, APPROPRIATE PLACEMENT AUSCULTATED 1540 DR. AMADO AT BEDSIDE PER DR. BOOTHS REQUEST 1600 ARTERIAL LINE PLACED IN LEFT WRIST VIA US PER DR. BOOTH 1610 LEVOFED DRIP STARTED AT THIS TIME 8MCG 15ML/HR 1650 FENTANYL RESTARTED AT 5MCG/HR 1655 ROUNDED ON PT AT THIS TIME, PT AWAKE TOLERATING ET TUBE, CALL LIGHT IN HAND. PT SHAKES HEAD YES/NO 1700 DR. BOOTH SPEAKING WITH [facility], PT ACCEPTED TO [facility] ICU, ROOM [address] VITAL 1705 FENTANYL REMAINS AT 5MCG/HR 1725 PT RESTING WITH EYES CLOSED. TOLERATING VENT AND IVF'S 1734 LAB AT BEDSIDE TO COLLECT REPEAT TROP 1745 PT RESTING WITH EYES CLOSED, CALL LIGHT IN HAND 1806 REPORT GIVEN RACHID RN AT [facility] ICU 1810 FLIGHT CREW AT BEDSIDE
--- NOTE | 2022-04-29 16:42 | PC.NURSE ---
placed call to dr wren speaking with Dr Stuart
--- NOTE | 2022-04-29 16:57 | PC.NURSE ---
Dr Badillo spoke with Dr Stuart, pt to go to [facility]
--- NOTE | 2022-04-29 17:13 | PC.NURSE ---
called [employer] for flight to [facility] ICU, pit operator stated there would be a 30 min ETA and that they would call and check with [employer] and return call.
--- NOTE | 2022-04-29 17:27 | PC.NURSE ---
[place] 2 checking weather
--- NOTE | 2022-04-29 17:56 | PC.NURSE ---
[employer] called and will be here in 10 min.
[2022-04-29 18:07] LABS: Troponin I < 0.01 ng/ml (0.00-0.034)
[2022-04-29 18:10] LABS: VBG Base Excess -3.6 mmol/L (-2.4-2.3); VBG HCO3 23.5 mmol/L (23-30); VBG Oxygen Saturation 92.1 % (50-70); VBG PCO2 53.1 mmol/L (35-51); VBG PH 7.26 mmol/L (7.31-7.41); VBG PO2 61.9 mmol/L (28-40); VBG Total CO2 25.1 mmol/L (23-27)
--- NOTE | 2022-04-29 19:53 | PC.NURSE ---
*Late entry Versed drip verbally ordered by MD at the bedside. drip mixed by staff d/t pharmacy not being available in house. after drip was mixed, pt condition changed and provider changed sedation order. Medication wasted.
== END 2022-04-29 19:15 | disposition short-term general hospital (02) ==
PROVIDERS: Emergency Provider Emergency Medicine; PCP Nurse Practitioner Psychiatric/Mental Health
DX: J96.90 Respiratory failure, unspecified, unspecified whether with hypoxia or hypercapnia (principal); J44.1 Chronic obstructive pulmonary disease with (acute) exacerbation; E87.20 Acidosis, unspecified; A41.9 Sepsis, unspecified organism; Z79.84 Long term (current) use of oral hypoglycemic drugs; Z79.899 Other long term (current) drug therapy; F31.9 Bipolar disorder, unspecified; Z72.0 Tobacco use
CPT/HCPCS: 31500; 36415; 36620; 71045; 71275; 80053; 82803; 82962; 83605; 84484; 85025; 86140; 87040; 87581; 87632; 87798; 93005; 94640; 96365; 96366; 96367; 96368; 96375; 99291; C9803; J0330; J0456; J0696; J2704; Q9967; U0003; U0005

== ENCOUNTER 2022-05-29 11:59 | Inpatient (IN) | payer MEDICARE, BC, SELFPAY ==
[2022-05-29] VITALS (19 sets, daily range): BP systolic 127–162; BP diastolic 54–100; PULSE 73–111; RESP 0–35; TEMP 36.6–37.1; O2SAT 70–98; BMI 34.2
--- NOTE | 2022-05-29 12:00 | PC.NURSE ---
NRB placed with oxygen sat of 70s, increased oxygen sat of 93, respiratory at bs with bipap, pt placed on bipap and pt improved to oxygen sat of 96 and able to answer questions at this time and follow commands. at bs
[2022-05-29 12:07] LABS: ABG Base Excess 20.2 mmol/L (-2.4-2.3); ABG HCO3 49.9 mmhg (22.0-26.0); ABG Oxygen Saturation 96 % (90-100); ABG PO2 97.5 mmhg (80-100)
--- NOTE | 2022-05-29 12:08 | PC.NURSE ---
September, SAE took ABG results via phone from respiratory
[2022-05-29 12:09] LABS: Allen's Test Patient Unable; Oxygen NRB %; Source Right Radial
[2022-05-29 12:10] LABS: ABG PCO2 165.5 mmhg (35.0-45.0)
--- NOTE | 2022-05-29 12:10 | PC.NURSE ---
Pt shoes, socks and sheet placed in a bag, pt sticker placed, sat outside, house keeping notified of clothing to go to barn. Pt clothes cut off and placed in double trash bag, new linens and gown placed on pt. Lab confirmed bug sent to lab as bed bug.
--- NOTE | 2022-05-29 12:17 | XR_ITS ---
FINAL REPORT CLINICAL HISTORY: Shortness of air COMPARISON: 04/29/2022 FINDINGS: A single view of the chest was obtained. The heart is enlarged. There is worsening pulmonary vascular congestion. Worsening bibasilar opacities may represent pneumonia or atelectasis. IMPRESSION: Worsening pulmonary vascular congestion. Worsening bibasilar opacities may represent pneumonia or atelectasis. Reviewed, Interpreted and Dictated by Keven Sparks III, MD Transcribed by Ladi Whitney Authenticated and [facility]
--- NOTE | 2022-05-29 12:19 | HMH.EDGENADL ---
Discharge Plan Disposition Patient Disposition: Admitted As Inpatient Condition: Serious Clinical Impressions Clinical Impression: Acute respiratory failure with hypoxia, Acute exacerbation of chronic obstructive airways disease, Acute on chronic respiratory failure with hypoxia and hypercapnia Discharge ED Provider: Vladislav Saleem General Adult HPI General Chief complaint: Shortness of Breath/Dyspnea Stated complaint: SOA Time Seen by Provider: 05/29/22 12:00 Mode of Arrival: EMS Source of Information: EMS Limitations: Altered Mental Status History of Present Illness HPI narrative: This is a 52-year-old male with history of COPD currently smoking and not taking home treatments, supposed be on home oxygen, but is not, multiple episodes of hypoxemic respiratory failure, most recently about a month ago necessitating intubation and inpatient admission presenting with respiratory distress. Per EMS, patient states that he had respiratory distress that was acute onset today 05/29 in the AM. It got progressively worse since that time and is associated with feelings of shortness of breath. Patient denied chest pain, nausea, vomiting, fevers, chills, but stating he just did not feel well. When EMS arrived, oxygen saturations were in the 50s, patient requiring oxygen. Required DuoNeb and had progressive mental status decline in route to ED. Related Data Home Medications Medication Instructions Recorded Confirmed fluticasone fur. 100 mcg-umeclid 1 puff inhalation DAILY COPD 05/09/19 05/05/22 62.5 mcg-vilant 25 mcg inhalat.powder ipratropium 0.5 mg-albuterol 3 mg 3 ml inhalation Q3H COPD 05/09/19 05/05/22 (2.5 mg base)/3 mL nebulization soln lisinopril 10 1 each PO DAILY High blood pressure 05/09/19 05/29/22 mg-hydrochlorothiazide 12.5 mg tablet nicotine 21 mg/24 hr daily 21 mg transdermal DAILY Smoking 05/09/19 05/05/22 transdermal patch Cessation atorvastatin 10 mg tablet 10 mg PO DAILY High cholesterol 03/01/22 05/29/22 bupropion HCl 150 mg tablet,12 hr 150 mg PO 03/01/22 05/05/22 sustained-release lamotrigine 25 mg tablet 25 mg PO TID epilepsy 03/01/22 05/29/22 metformin 500 mg tablet 500 mg PO DAILY Diabetes 03/01/22 05/29/22 omeprazole 40 mg capsule,delayed 40 mg PO DAILY GERD 03/01/22 05/29/22 release quetiapine 100 mg tablet (Seroquel) 100 mg PO QHS Insomnia 05/29/22 05/29/22 Previous Rx's Medication Instructions Recorded albuterol sulfate 90 mcg/actuation 2 puffs inhalation Q6HP PRN 01/17/19 aerosol inhaler Shortness Of Breath 30 days #1 puff metoprolol tartrate 25 mg tablet 12.5 mg PO BID #30 tabs 11/28/19 brexpiprazole 2 mg tablet (Rexulti) 2 mg PO DAILY #30 tabs 04/27/22 paroxetine HCl 40 mg tablet (Paxil) 40 mg PO DAILY #30 tabs 04/27/22 Allergies Allergy/AdvReac Type Severity Reaction Status Date / Time No Known Allergies Allergy Verified 05/29/22 18:28 [facility] Disclaimer: The information contained in this section may have been updated after the patient was seen, as this information can be updated by other users. Medical History (Updated 05/29/22 @ 18:06 by Vladislav Saleem MD) Bipolar I disorder Chest pain Dizziness Insomnia Palpitations Social History (Updated 05/29/22 @ 18:06 by Robina Bedoya RN) Smoking Status: Current every day smoker tobacco type: cigarettes packs per day: 1 second hand exposure: Yes alcohol intake: never substance use type: crack/cocaine current occupational status: unemployed and disabled Travel in the last 8 weeks: Inside the [place] household members: other housing: apartment number of children: 0 caffeine: Yes ROS Obtained: Yes unobtainable due to mental status Physical Exam General General appearance: lethargic and in distress Head Head exam: atraumatic, normocephalic and normal inspection Eye Eye exam: Present normal appearance, PERRL and EOMI; Absent scleral icterus or conjunctival redness ENT E
[2022-05-29 12:30] LABS: Coronavirus 19, PCR Not Detected (NotDetected); Influenza A, PCR Not Detected (NotDetected); Influenza B, PCR Not Detected (NotDetected)
[2022-05-29 12:46] LABS: Chloride 92 mmol/L (98-107); Potassium 5.1 mmoL/L (3.5-5.1); Sodium 142 mmol/L (136-145)
[2022-05-29 12:49] LABS: Blood Urea Nitrogen 18 mg/dl (9-20); Calcium 8.9 mg/dl (8.4-10.2); Estimated Glomerular Filt Rate 141 ml/min (>60); GFR (African American) 171 ML/MIN (>60); Glucose 186 mg/dl (74-100)
[2022-05-29 12:51] LABS: Basophils # 0.1 K/mm3 (0-0.2); Eosinophils % 0.3 % (0.1-12.0); Hematocrit 49.7 % (42.0-52.0); Hemoglobin 14.8 g/dL (14.1-18.0); Lymphocytes % 7.9 % (10-50); Mean Corpuscular HGB Conc 29.9 g/dL (31.8-35.4); Mean Corpuscular Hemoglobin 28.8 pg (27.0-31.2); Mean Corpuscular Volume 96.4 fl (80-94); Mean Platelet Volume 8.8 fl (7.4-10.4); Monocytes # 0.8 K/mm3 (0.1-1.0); Monocytes % 6.2 % (1.7-9.3); Neutrophils # 10.3 K/mm3 (1.8-7.8); Neutrophils % 84.5 % (37.0-80.0); Platelet Count 321 K/mm3 (142-424); Red Blood Count 5.15 M/mm3 (4.60-6.20); Red Cell Distribution Width 13.9 % (11.5-17.5); White Blood Count 12.2 K/mm3 (4.8-10.8)
--- NOTE | 2022-05-29 13:04 | ECG_ITS ---
APPROVED REPORT Exam: Resting ECG HR:100 bpm ECG Measurements Heart Rate [address] 157 P 70 QRSd 92 QRS 35 QT 336 T 57 QTc 393 Conclusion SINUS TACHYCARDIA LOW QRS VOLTAGE IN PRECORDIAL LEADS [QRS DEFLECTION < 1.0 mV IN CHEST LEADS] ABNORMAL RHYTHM ECG UNCONFIRMED REPORT Electronically signed by : Antoine Sexton MD 05/30/2022 22:21:11
[2022-05-29 13:05] LABS: ABG Base Excess 20.5 mmol/L (-2.4-2.3); ABG HCO3 49.3 mmhg (22.0-26.0); ABG Oxygen Saturation 91 % (90-100); ABG PO2 65.6 mmhg (80-100); ABG TCO2 53.8 mmhg (23-27)
[2022-05-29 13:06] LABS: Anion Gap 10.1 mEq/L (5-15); Carbon Dioxide 45 mmol/L (22.0-30.0); Creatinine Clearance Estimated 208 mL/min (50-200)
[2022-05-29 13:16] LABS: Allen's Test Patient Unable; Oxygen 50 %; PEEP 6; Source Right Radial; Vent Rate 22
[2022-05-29 13:17] LABS: ABG PCO2 144.2 mmhg (35.0-45.0); ABG PH 7.15 mmol/L (7.35-7.45)
--- NOTE | 2022-05-29 13:36 | PC.NURSE ---
speaking with Dr. Sexton
--- NOTE | 2022-05-29 13:48 | PC.NURSE ---
Called care management for admission
--- NOTE | 2022-05-29 13:48 | PC.NURSE ---
Pt repositioned in bed at this time
[2022-05-29 14:12] LABS: NT Pro Brain Natriuretic Pep. 920 pg/mL (0-125)
[2022-05-29 14:16] LABS: Troponin I < 0.01 ng/ml (0.00-0.034)
[2022-05-29 14:25] LABS: ABG Base Excess 18.9 mmol/L (-2.4-2.3); ABG HCO3 47.8 mmhg (22.0-26.0); ABG Oxygen Saturation 96 % (90-100); ABG PO2 90.3 mmhg (80-100); ABG TCO2 52.1 mmhg (23-27)
[2022-05-29 14:36] LABS: Oxygen 65% %; PEEP 6; Vent Rate 22
[2022-05-29 14:37] LABS: ABG PH 7.15 mmol/L (7.35-7.45); Allen's Test Patient Unable; Source Right Radial
[2022-05-29 14:38] LABS: ABG PCO2 141.3 mmhg (35.0-45.0)
--- NOTE | 2022-05-29 14:38 | PC.NURSE ---
aware of ABG
--- NOTE | 2022-05-29 15:27 | PC.NURSE ---
Called report to SAE Ortiz
--- NOTE | 2022-05-29 15:36 | PC.NURSE ---
RT and Nurse down to get patient and take to 2nd floor
--- NOTE | 2022-05-29 15:40 | PC.NURSE ---
patient arrived by stretcher from ED
--- NOTE | 2022-05-29 15:54 | EXP.HP ---
History of Present Illness *Admission Date: 05/29/22 *Reason for visit:: confused, respiratory failure *History of present illness: Mr. Simmons is a 52-year-old male with history of COPD, diabetes, bipolar. Continues to smoke. Presented to the ER with episode of confusion and somnolence. Initial work-up concerning for hypercapnic respiratory failure with acidosis. Initiated on BiPAP. Medicine consulted for admission. He was brought to the ER via EMS who states that he was in respiratory distress at home that began earlier today. Got progressively worse. He denied chest pain, nausea, vomiting, chills. O2 saturations in the 50s when EMS arrived to his house. Has received duo nebs in the ER but continues to remain in respiratory distress. Given his alertness, BiPAP was used. He had a similar presentation a month ago necessitating intubation. Comprehensive respiratory panel at that time positive for para flu. He was transferred to tertiary care center for further management at that presentation. Patient admitted to medicine. On arrival to the floor, patient will awaken to voice and tactile stimuli. Tries to open eyes and answer questions. Falls back asleep. Repeat blood gas showing improvement in pH and PCO2. Seems to be tolerating BiPAP at this time. Pulmonology consulted to assist with further management. Patient moving spontaneously. Unable to obtain significant history from pain [facility] Disclaimer: The information contained in this section may have been updated after the patient was seen, as this information can be updated by other users. Medical History (Updated 05/29/22 @ 18:06 by Vladislav Saleem MD) Bipolar I disorder Chest pain Dizziness Insomnia Palpitations Social History (Updated 05/29/22 @ 18:06 by Robina Bedoya RN) Smoking Status: Current every day smoker tobacco type: cigarettes packs per day: 1 second hand exposure: Yes alcohol intake: never substance use type: crack/cocaine current occupational status: unemployed and disabled Travel in the last 8 weeks: Inside the [place] household members: other housing: apartment number of children: 0 caffeine: Yes Review of Systems Review of Systems Review of systems:: unable to obtain Meds Home Medications and Allergies Home Medications Medication Instructions Recorded Confirmed Type albuterol sulfate 90 mcg/actuation 2 puffs inhalation Q6HP PRN 01/17/19 05/05/22 Rx aerosol inhaler Shortness Of Breath 30 days #1 puff fluticasone fur. 100 mcg-umeclid 1 puff inhalation DAILY COPD 05/09/19 05/05/22 History 62.5 mcg-vilant 25 mcg inhalat.powder ipratropium 0.5 mg-albuterol 3 mg 3 ml inhalation Q3H COPD 05/09/19 05/05/22 History (2.5 mg base)/3 mL nebulization soln lisinopril 10 1 each PO DAILY High blood pressure 05/09/19 05/29/22 History mg-hydrochlorothiazide 12.5 mg tablet nicotine 21 mg/24 hr daily 21 mg transdermal DAILY Smoking 05/09/19 05/05/22 History transdermal patch Cessation metoprolol tartrate 25 mg tablet 12.5 mg PO BID #30 tabs 11/28/19 05/05/22 Rx atorvastatin 10 mg tablet 10 mg PO DAILY High cholesterol 03/01/22 05/29/22 History bupropion HCl 150 mg tablet,12 hr 150 mg PO 03/01/22 05/05/22 History sustained-release lamotrigine 25 mg tablet 25 mg PO TID epilepsy 03/01/22 05/29/22 History metformin 500 mg tablet 500 mg PO DAILY Diabetes 03/01/22 05/29/22 History omeprazole 40 mg capsule,delayed 40 mg PO DAILY GERD 03/01/22 05/29/22 History release brexpiprazole 2 mg tablet (Rexulti) 2 mg PO DAILY #30 tabs 04/27/22 04/27/22 Rx paroxetine HCl 40 mg tablet (Paxil) 40 mg PO DAILY #30 tabs 04/27/22 04/27/22 Rx quetiapine 100 mg tablet (Seroquel) 100 mg PO QHS Insomnia 05/29/22 05/29/22 History New Prescriptions to Start Prescriptions: Allergies Allergy/AdvReac Type Severity Reaction Status Date / Time No Known Allergies Allergy Verified 05/29/22 18:28 Exam Data for [facility]
--- NOTE | 2022-05-29 15:56 | EXP.PULM.CON ---
History of Present Illness History of present illness: Patient obtunded much of history is obtained from chart review. Mr. Simmons is a 52-year-old male with reported history of COPD recently presented to the ER for severe hypercarbic respiratory needig Intubation and mechanical ventilatory support presented to the hospital again today with worsening respiratory status and Respiratory Failure Needing BiPAP Therapy and Pulmonary Was Called for Further Evaluation. [facility] Disclaimer: The information contained in this section may have been updated after the patient was seen, as this information can be updated by other users. Medical History (Updated 04/29/22 @ 17:34 by Ancelmo Badillo MD) Bipolar I disorder Chest pain Dizziness Insomnia Palpitations Social History Smoking Status: Current every day smoker tobacco type: cigarettes packs per day: 1 second hand exposure: Yes alcohol intake: never substance use type: crack/cocaine current occupational status: unemployed and disabled Travel in the last 8 weeks: Inside the [place] household members: other housing: apartment number of children: 0 caffeine: Yes Review of Systems Review of Systems Review of systems:: unable to obtain Review of systems (narrative): Patient only grimacing to painful stimuli. Pulmonology Exam Inpatient Vital signs and Labs for Last 24 Hours: Temp Pulse Resp BP Pulse Ox FiO2 97.9 F 98 H 23 162/100 H 95 50 05/29/22 11:59 05/29/22 15:00 05/29/22 15:00 05/29/22 15:00 05/29/22 15:00 05/29/22 12:15 Laboratory Results - last 24 hr 05/29/22 11:58: WBC 12.2 H, RBC 5.15, Hgb 14.8, Hct 49.7, MCV 96.4 H, MCH 28.8, MCHC 29.9 L, RDW 13.9, Plt Count 321, MPV 8.8, Neut % (Auto) 84.5 H, Lymph % (Auto) 7.9 L, [place] % (Auto) 6.2, Eos % (Auto) 0.3, Baso % (Auto) 1.0, Neut # (Auto) 10.3 H, Lymph # (Auto) 1.0, [place] # (Auto) 0.8, Eos # (Auto) 0.0, Baso # (Auto) 0.1 05/29/22 11:58: Sodium 142, Potassium 5.1, Chloride 92 L, Carbon Dioxide 45 H*, Anion Gap 10.1, BUN 18, Creatinine 0.60 L, Estimated Creat Clear 208, Estimated GFR 141, Est GFR ( Amer) 171, Glucose 186 H, Calcium 8.9 05/29/22 11:58: SARS-CoV-2 (PCR) Not detected, Influenza A Untype (PCR) Not detected, Influenza Type B (PCR) Not detected 05/29/22 11:58: Troponin I < 0.01, NT-Pro-B Natriuret Pep 920 H 05/29/22 12:05: Specimen Source Right radial, O2 % Nrb, ABG pH 7.10 L*, ABG pCO2 165.5 H, ABG pO2 97.5, ABG HCO3 49.9 H, ABG Total CO2 55.0 H, ABG O2 Saturation 96, ABG Base Excess 20.2 H, Faisal Test Patient unable 05/29/22 12:51: Specimen Source Right radial, O2 % 50, ABG pH 7.15 L*, ABG pCO2 144.2 H, ABG pO2 65.6 L, ABG HCO3 49.3 H, ABG Total CO2 53.8 H, ABG O2 Saturation 91, ABG Base Excess 20.5 H, Faisal Test Patient unable, Vent Rate 22, PEEP 6 05/29/22 14:23: Specimen Source Right radial, O2 % 65%, ABG pH 7.15 L*, ABG pCO2 141.3 H, ABG pO2 90.3, ABG HCO3 47.8 H, ABG Total CO2 52.1 H, ABG O2 Saturation 96, ABG Base Excess 18.9 H, Faisal Test Patient unable, Vent Rate 22, PEEP 6 I & O for Labs for Last 24 Hours: Intake & Output 05/26/22 05/27/22 05/28/22 05/29/22 23:59 23:59 23:59 23:59 Weight 225 lb Constitutional: Present severe distress Head: Present normocephalic and atraumatic ENT: Present normal exam, normal oropharynx and mucous membranes moist Neck: Present normal inspection and full ROM Respiratory: Present prolonged expiratory phase, respiratory distress, wheezes, crackles, diminished air movement and able to speak in complete sentences Cardiac: Present S1/S2, Tachycardia and radial pulses present GI: Present soft and distention; Absent tenderness or guarding Skin: Present intact; Absent cyanosis or jaundice Neuro: Absent alert, awake or oriented x 3 Extremities: Present normal inspection and edema; Absent clubbing or cyanosis Psychiatric: Present normal affect and cooperative Meds Home Medications and Allergies Home Medications Medication Instr
[2022-05-29 16:46] LABS: POC Glucose,Bedside 182 (70-110)
[2022-05-29 16:47] LABS: ABG Base Excess 18.1 mmol/L (-2.4-2.3); ABG HCO3 45.3 mmhg (22.0-26.0); ABG Oxygen Saturation 91 % (90-100); ABG PH 7.26 mmol/L (7.35-7.45); ABG PO2 60.3 mmhg (80-100); ABG TCO2 48.5 mmhg (23-27)
[2022-05-29 16:50] LABS: Oxygen 50 %; Pressure Support 12; Vent Rate 26
[2022-05-29 16:51] LABS: Allen's Test Patient Unable; Source Right Radial; Tidal Volume 24/12
[2022-05-29 16:53] LABS: ABG PCO2 104.4 mmhg (35.0-45.0)
[2022-05-29 17:49] LABS: Adenovirus,PCR Not Detected (NotDetected); Bordetella Pertussis Not Detected (NotDetected); Chlamydophila Pneumoniae, PCR Not Detected (NotDetected); Coronavirus 19, PCR Not Detected (NotDetected); Coronavirus 229E Not Detected (NotDetected); Coronavirus NL63 Not Detected (NotDetected); Coronavirus OC43 Not Detected (NotDetected); Coronovirus HKU1,PCR Not Detected (NotDetected); Human Metapneumovirus Not Detected (NotDetected); Influenza A, PCR Not Detected (NotDetected); Influenza AH1, 2009 Not Detected (NotDetected); Influenza AH1, PCR Not Detected (NotDetected); Influenza AH3,PCR Not Detected (NotDetected); Influenza B, PCR Not Detected (NotDetected); Mycoplasma Pneumoniae, PCR Not Detected (NotDetected); Parainfluenza 1, PCR Not Detected (NotDetected); Parainfluenza 2, PCR Not Detected (NotDetected); Parainfluenza 3, PCR Not Detected (NotDetected); Parainfluenza 4, PCR Not Detected (NotDetected); Respiratory Syncytial Virus Not Detected (NotDetected); Rhinovirus/Enterovirus Not Detected (NotDetected)
[2022-05-29 21:03] LABS: ABG Base Excess 16.5 mmol/L (-2.4-2.3); ABG HCO3 41.3 mmhg (22.0-26.0); ABG Oxygen Saturation 96 % (90-100); ABG PO2 74.2 mmhg (80-100); ABG TCO2 43.4 mmhg (23-27)
[2022-05-29 21:06] LABS: Allen's Test ACCEPTABLE; Oxygen 50 %; Source Right Radial
[2022-05-29 21:08] LABS: ABG PCO2 68.1 mmhg (35.0-45.0)
[2022-05-29 21:08] LABS: POC Glucose,Bedside 192 (70-110)
--- NOTE | 2022-05-29 21:50 | PC.NURSE ---
RESP CARE NOTE: Pt BIPAP settings adjusted to 20 IPAP and [address] Aguirre telephone order. Will continue to monitor patient.
[2022-05-30] VITALS (16 sets, daily range): BP systolic 114–144; BP diastolic 61–87; PULSE 68–100; RESP 17–26; TEMP 36.4–37.4; O2SAT 91–96; BMI 36.8
--- NOTE | 2022-05-30 00:38 | P.CONPHA_ITS ---
Pharmacy Intervention Comments: HOME MEDICATION LIST VERIFIED USING LIST FROM [facility] AND PT INTERVIEW
--- NOTE | 2022-05-30 00:38 | HMH.PHAINT1 ---
Pharmacy Intervention Comments: HOME MEDICATION LIST VERIFIED USING LIST FROM [facility] AND PT INTERVIEW
[2022-05-30 06:30] LABS: POC Glucose,Bedside 161 (70-110)
--- NOTE | 2022-05-30 06:55 | PC.NURSE ---
Pt has tolerated bipap well with sats > 90%. Lung sounds diminished. Pt has been incontinent t/o shift. No c/o have been voiced to staff. Call light within reach.
[2022-05-30 06:57] LABS: Basophils % 0.3 % (0.1-2.0); Eosinophils % 0.2 % (0.1-12.0); Hematocrit 39.2 % (42.0-52.0); Lymphocytes # 0.8 K/mm3 (0.7-4.5); Lymphocytes % 7.1 % (10-50); Mean Corpuscular HGB Conc 31.5 g/dL (31.8-35.4); Mean Corpuscular Hemoglobin 28.6 pg (27.0-31.2); Mean Corpuscular Volume 90.9 fl (80-94); Mean Platelet Volume 8.6 fl (7.4-10.4); Monocytes % 9.2 % (1.7-9.3); Neutrophils # 9.3 K/mm3 (1.8-7.8); Neutrophils % 83.2 % (37.0-80.0); Platelet Count 260 K/mm3 (142-424); Red Blood Count 4.31 M/mm3 (4.60-6.20); Red Cell Distribution Width 14.2 % (11.5-17.5); White Blood Count 11.2 K/mm3 (4.8-10.8)
[2022-05-30 07:02] LABS: Chloride 89 mmol/L (98-107); Potassium 4.5 mmoL/L (3.5-5.1); Sodium 138 mmol/L (136-145)
[2022-05-30 07:04] LABS: Blood Urea Nitrogen 27 mg/dl (9-20); Creatinine Clearance Estimated 169 mL/min (50-200); Estimated Glomerular Filt Rate 102 ml/min (>60); GFR (African American) 123 ML/MIN (>60)
[2022-05-30 07:05] LABS: Alanine Aminotransferase 32 U/L (12-78); Albumin Level 3.5 g/dl (3.5-5.0); Albumin/Globulin Ratio 1.3 (1.1-1.8); Alkaline Phosphatase 116 U/L (38-126); Aspartate Amino Transferase 25 U/L (17-59); Calcium 8.6 mg/dl (8.4-10.2); Globulin 2.8 g/dL (1.3-3.2); Glucose 147 mg/dl (74-100); Hemoglobin 12.4 g/dL (14.1-18.0); Magnesium 1.8 mg/dl (1.6-2.3); Total Protein,Serum 6.3 g/dl (6.3-8.2)
[2022-05-30 07:14] LABS: Anion Gap 6.5 mEq/L (5-15); Bilirubin,Total < 0.1 mg/dl (0.2-1.3); Carbon Dioxide 47 mmol/L (22.0-30.0)
--- NOTE | 2022-05-30 08:44 | CA_ITS ---
APPROVED REPORT EXAM: Comprehensive 2D, Doppler, and color-flow Echocardiogram [employer] Ranging Crewmember: DENISE Escalante, RVS Ht: 5 ft 8 in Wt: 225lbs BSA: 2.15 BP: 127/70 mmHg Indications: SOA, CHF, Bipolar, Bi-pap, COPD 2D Dimensions IVSd 1.07 cm LVEF (Visual) 47.20 % PWd 0.80 cm LA Volume 35.00 mL LVDd 5.71 cm LA Volume Index [id number] mL/m2 (M/F) 16-34 LVDs 4.34 cm Aortic Root 2.67 cm Left Atrium 2.61 cm LVOT 2.08 cm (M/F) 1.5-2.5 M-Mode Dimensions LA Diam 3.15 cm (1.9-4.0) Ao Diam 2.73 cm (2.0-3.7) EPSs 2.09 cm TAPSE 3.11 (<1.7) LV Diastology E Decel Time 140.00 (160-240 msec) E/A Ratio 0.77 MED A' 11.20 cm/s LAT E' 7.30 (<10 cm/sec) LAT A' 10.20 cm/s E/LAT E' Ratio 12.15 (>14) Aortic Valve LVOT Max 132.00 (70-110 cm/s) LVOT VTI 27.05 cm AoV Peak [place]. 191.00 (50-130 cm/s) AO Peak GR. 14.50 mmHg AO Mean GR. 7.20 (<5 mmHg) AO VTI 35.71 (18-25 cm) MARIBEL (VTI) 2.57 (2.5-4.5 cm2) Mitral Valve MV E Max [place]. 89.00 (40-130 cm/s) MV A Velocity 116.00 (40-130 cm/s) E/A Ratio 0.77 MV Decel. Time 140.00 (160-240 ms) MV PHT 41.00 ms Pulmonary Valve PV Peak Velocity 98.00 (50-150 cm/s) Tricuspid Valve TR P. Velocity 164.00 cm/s RAP Estimate 10.00 mmHg RVSP 20.70 mmHg Left Ventricle Left atrium is mildly enlarged, left ventricle is normal size mild concentric left ventricular hypertrophy, estimated ejection fraction 55% with no regional wall motion abnormality, grade 1 diastolic dysfunction seen without tissue Doppler evidence of raise left atrial pressure. Right Ventricle Right atrium and right ventricle are mildly enlarged with normal contractility. Aortic Valve Aortic valve is minimally thickened and fibrosed there is no aortic stenosis or aortic insufficiency. Mitral Valve Mitral valve is grossly normal, there is trace mitral regurgitation. Tricuspid Valve Tricuspid valve grossly normal, there is trace tricuspid regurgitation, tricuspid regurgitation jet velocity is inadequate for calculation of the right ventricular systolic pressure. Pulmonic Valve Pulmonic valve is poorly visualized. Great Vessels Aortic root is normal size. Inferior vena cava is poorly visualized. Pericardium No significant pericardial effusion noted. Conclusion 1. Mild biatrial enlargement, normal left ventricular size, mild concentric left ventricular hypertrophy, estimated ejection fraction 55% with no regional wall motion abnormality, grade 1 diastolic dysfunction seen without tissue Doppler evidence of raise left atrial pressure. 2. Mildly enlarged right ventricle with normal contractility. 3. Mild mitral and tricuspid regurgitation. 4. No significant pericardial effusion noted. 5. Inferior vena cava is poorly visualized. Electronically signed by : Teodoro Fraser MD 05/30/2022 18:07:24
--- NOTE | 2022-05-30 10:21 | EXP.PULM.PN ---
Subjective *Date: 05/30/22 *Time: 12:35 Interval history: No acute respiratory events overnight. Patient alert and oriented this morning admits improvement in his respiratory symptoms. Continues to complain of cough and productive phlegm. Pulmonology Exam Inpatient Vital signs and Labs for Last 24 Hours: Temp Pulse Resp BP Pulse Ox FiO2 98.5 F 82 26 H 118/75 94 L 50 05/30/22 08:00 05/30/22 10:09 05/30/22 06:00 05/30/22 06:00 05/30/22 06:05 05/30/22 10:09 Laboratory Results - last 24 hr 05/29/22 11:58: WBC 12.2 H, RBC 5.15, Hgb 14.8, Hct 49.7, MCV 96.4 H, MCH 28.8, MCHC 29.9 L, RDW 13.9, Plt Count 321, MPV 8.8, Neut % (Auto) 84.5 H, Lymph % (Auto) 7.9 L, [place] % (Auto) 6.2, Eos % (Auto) 0.3, Baso % (Auto) 1.0, Neut # (Auto) 10.3 H, Lymph # (Auto) 1.0, [place] # (Auto) 0.8, Eos # (Auto) 0.0, Baso # (Auto) 0.1 05/29/22 11:58: Sodium 142, Potassium 5.1, Chloride 92 L, Carbon Dioxide 45 H*, Anion Gap 10.1, BUN 18, Creatinine 0.60 L, Estimated Creat Clear 208, Estimated GFR 141, Est GFR ( Amer) 171, Glucose 186 H, Calcium 8.9 05/29/22 11:58: SARS-CoV-2 (PCR) Not detected, Influenza A Untype (PCR) Not detected, Influenza Type B (PCR) Not detected 05/29/22 11:58: Troponin I < 0.01, NT-Pro-B Natriuret Pep 920 H 05/29/22 12:05: Specimen Source Right radial, O2 % Nrb, ABG pH 7.10 L*, ABG pCO2 165.5 H, ABG pO2 97.5, ABG HCO3 49.9 H, ABG Total CO2 55.0 H, ABG O2 Saturation 96, ABG Base Excess 20.2 H, Faisal Test Patient unable 05/29/22 12:51: Specimen Source Right radial, O2 % 50, ABG pH 7.15 L*, ABG pCO2 144.2 H, ABG pO2 65.6 L, ABG HCO3 49.3 H, ABG Total CO2 53.8 H, ABG O2 Saturation 91, ABG Base Excess 20.5 H, Faisal Test Patient unable, Vent Rate 22, PEEP 6 05/29/22 14:23: Specimen Source Right radial, O2 % 65%, ABG pH 7.15 L*, ABG pCO2 141.3 H, ABG pO2 90.3, ABG HCO3 47.8 H, ABG Total CO2 52.1 H, ABG O2 Saturation 96, ABG Base Excess 18.9 H, Faisal Test Patient unable, Vent Rate 22, PEEP 6 05/29/22 16:28: POC Glucose 182 H 05/29/22 16:30: Specimen Source Right radial, O2 % 50, ABG pH 7.26 L, ABG pCO2 104.4 H, ABG pO2 60.3 L, ABG HCO3 45.3 H, ABG Total CO2 48.5 H, ABG O2 Saturation 91, ABG Base Excess 18.1 H, Faisal Test Patient unable, Vent Rate 26, Tidal Volume 24/12 05/29/22 17:41: Chlamy pneumoniae PCR Not detected, Adenovirus (PCR) Not detected, B. pertussis DNA (PCR) Not detected, Coronavirus OC43 (PCR) Not detected, Coronavirus HKU1 (PCR) Not detected, Coronavirus 229E (PCR) Not detected, SARS-CoV-2 (PCR) Not detected, Coronavirus NL63 (PCR) Not detected, Human Metapneumovir PCR Not detected, Influenza A (H1) PCR Not detected, Influ A (H1N1/09) PCR Not detected, Influenza A (H3) PCR Not detected, Influenza Type A (PCR) Not detected, Influenza Type B (PCR) Not detected, M. pneumoniae (PCR) Not detected, Parainfluenza 1 (PCR) Not detected, Parainfluenza 2 (PCR) Not detected, Parainfluenza 3 (PCR) Not detected, Parainfluenza 4 (PCR) Not detected, RSV (PCR) Not detected, Entero/Rhino (PCR) Not detected 05/29/22 21:00: Specimen Source Right radial, O2 % 50, ABG pH 7.40, ABG pCO2 68.1 H, ABG pO2 74.2 L, ABG HCO3 41.3 H, ABG Total CO2 43.4 H, ABG O2 Saturation 96, ABG Base Excess 16.5 H, Faisal Test Acceptable 05/29/22 21:01: POC Glucose 192 H 05/30/22 05:20: POC Glucose 161 H 05/30/22 05:59: WBC 11.2 H, RBC 4.31 L, Hgb 12.4 L D, Hct 39.2 L, MCV 90.9, MCH 28.6, MCHC 31.5 L, RDW 14.2, Plt Count 260, MPV 8.6, Neut % (Auto) 83.2 H, Lymph % (Auto) 7.1 L, [place] % (Auto) 9.2, Eos % (Auto) 0.2, Baso % (Auto) 0.3, Neut # (Auto) 9.3 H, Lymph # (Auto) 0.8, [place] # (Auto) 1.0, Eos # (Auto) 0.0, Baso # (Auto) 0.0 05/30/22 05:59: Sodium 138, Potassium 4.5, Chloride 89 L, Carbon Dioxide 47 H*, Anion Gap 6.5, BUN 27 H D, Creatinine 0.80 D, Estimated Creat Clear 169, Estimated GFR 102, Est GFR ( Amer) 123 D, Glucose 147 H D, Calcium 8.6, Magnesium 1.8, Total Bilirubin < 0.1 L, AST 25, ALT 32, Alkaline Phosphatase 116, Total Protein 6.3, Albumin 3.5, Globulin 2.8, Albumin/Globulin
[2022-05-30 12:29] LABS: POC Glucose,Bedside 174 (70-110)
--- NOTE | 2022-05-30 16:05 | EXP.PN ---
Subjective *Date: 05/30/22 *Time: 16:05 Interval history: No acute events overnight. patient feeling better today, shortness of breath and cough have greatly improved. Exam Data for Last 24 hours Vital signs and Labs for Last 24 Hours: Temp Pulse Resp BP Pulse Ox FiO2 99.4 F 80 24 116/73 94 L 50 05/30/22 12:00 05/30/22 12:02 05/30/22 12:00 05/30/22 12:00 05/30/22 14:16 05/30/22 10:09 Laboratory Results - last 24 hr 05/29/22 16:28: POC Glucose 182 H 05/29/22 16:30: Specimen Source Right radial, O2 % 50, ABG pH 7.26 L, ABG pCO2 104.4 H, ABG pO2 60.3 L, ABG HCO3 45.3 H, ABG Total CO2 48.5 H, ABG O2 Saturation 91, ABG Base Excess 18.1 H, Faisal Test Patient unable, Vent Rate 26, Tidal Volume 24/05/29/22 17:41: Chlamy pneumoniae PCR Not detected, Adenovirus (PCR) Not detected, B. pertussis DNA (PCR) Not detected, Coronavirus OC43 (PCR) Not detected, Coronavirus HKU1 (PCR) Not detected, Coronavirus 229E (PCR) Not detected, SARS-CoV-2 (PCR) Not detected, Coronavirus NL63 (PCR) Not detected, Human Metapneumovir PCR Not detected, Influenza A (H1) PCR Not detected, Influ A (H1N1/09) PCR Not detected, Influenza A (H3) PCR Not detected, Influenza Type A (PCR) Not detected, Influenza Type B (PCR) Not detected, M. pneumoniae (PCR) Not detected, Parainfluenza 1 (PCR) Not detected, Parainfluenza 2 (PCR) Not detected, Parainfluenza 3 (PCR) Not detected, Parainfluenza 4 (PCR) Not detected, RSV (PCR) Not detected, Entero/Rhino (PCR) Not detected 05/29/22 21:00: Specimen Source Right radial, O2 % 50, ABG pH 7.40, ABG pCO2 68.1 H, ABG pO2 74.2 L, ABG HCO3 41.3 H, ABG Total CO2 43.4 H, ABG O2 Saturation 96, ABG Base Excess 16.5 H, Faisal Test Acceptable 05/29/22 21:01: POC Glucose 192 H 05/30/22 05:20: POC Glucose 161 H 05/30/22 05:59: WBC 11.2 H, RBC 4.31 L, Hgb 12.4 L D, Hct 39.2 L, MCV 90.9, MCH 28.6, MCHC 31.5 L, RDW 14.2, Plt Count 260, MPV 8.6, Neut % (Auto) 83.2 H, Lymph % (Auto) 7.1 L, [place] % (Auto) 9.2, Eos % (Auto) 0.2, Baso % (Auto) 0.3, Neut # (Auto) 9.3 H, Lymph # (Auto) 0.8, [place] # (Auto) 1.0, Eos # (Auto) 0.0, Baso # (Auto) 0.0 05/30/22 05:59: Sodium 138, Potassium 4.5, Chloride 89 L, Carbon Dioxide 47 H*, Anion Gap 6.5, BUN 27 H D, Creatinine 0.80 D, Estimated Creat Clear 169, Estimated GFR 102, Est GFR ( Amer) 123 D, Glucose 147 H D, Calcium 8.6, Magnesium 1.8, Total Bilirubin < 0.1 L, AST 25, ALT 32, Alkaline Phosphatase 116, Total Protein 6.3, Albumin 3.5, Globulin 2.8, Albumin/Globulin Ratio 1.3 05/30/22 11:49: POC Glucose 174 H I & O for Last 24 hours: Intake & Output 05/27/22 05/28/22 05/29/22 05/30/22 23:59 23:59 23:59 23:59 Intake Total 350 / 350 100 / 100 Output Total 900 / 900 Balance -550 / -550 100 / 100 Weight 102.058 kg 110.314 kg Constitutional Constitutional: no acute distress, obese and cooperative *Routine HEENT Exam Head: Present normocephalic Eye: Present EOMI and PERRL ENT: Present mucous membranes moist *Routine Neck Exam Neck: Present supple and full ROM; Absent lymphadenopathy *Routine Respiratory Exam Respiratory: Present prolonged expiratory phase, rhonchi, wheezes, normal respiratory effort and able to speak in complete sentences; Absent CTA bilaterally or respiratory distress *Routine Cardiovascular Exam Cardiovascular: Present RRR; Absent murmur *Routine Abdominal Exam Abdominal: Present soft and normoactive bowel sounds; Absent tenderness *Routine Extremities Exam Extremities: Absent cyanosis, clubbing or edema *Routine Skin Exam Skin: Present warm; Absent rash *Routine Neurological Exam Neurological: Present alert, oriented X3, CN II-XII intact, moving all extremities and normal tone Routine Psychiatric Exam Psychiatric: Present normal affect, normal thought process, cooperative and good insight Assessment and Plan *Assessment and plan (1) Acute on chronic respiratory failure with hypoxia and hypercapnia: Status: Acute Category: Medical Code(s): J96.2
[2022-05-30 16:25] LABS: POC Glucose,Bedside 139 (70-110)
[2022-05-30 22:26] LABS: POC Glucose,Bedside 181 (70-110)
[2022-05-31] VITALS (14 sets, daily range): BP systolic 101–126; BP diastolic 57–77; PULSE 68–90; RESP 16–35; TEMP 36.4–36.6; O2SAT 92–99; BMI 36.5; BMI 36.4
--- NOTE | 2022-05-31 05:00 | PC.NURSE ---
PATIENT HAS RESTED WELL . NO C/O PAIN OR SOA. 02 AT 3LNC, 02 SAT 92-94 %.
[2022-05-31 05:49] LABS: POC Glucose,Bedside 158 (70-110)
[2022-05-31 07:51] LABS: ABG Base Excess 18.5 mmol/L (-2.4-2.3); ABG HCO3 43.6 mmhg (22.0-26.0); ABG Oxygen Saturation 90 % (90-100); ABG PH 7.38 mmol/L (7.35-7.45); ABG PO2 58.3 mmhg (80-100); ABG TCO2 45.9 mmhg (23-27)
[2022-05-31 07:52] LABS: Allen's Test Acceptable; Oxygen 2.5 L NC %; Source Right Radial
[2022-05-31 07:53] LABS: ABG PCO2 75.2 mmhg (35.0-45.0)
--- NOTE | 2022-05-31 07:54 | PC.NURSE ---
reported co2 and po2 results from abg
[2022-05-31 08:07] LABS: Chloride 88 mmol/L (98-107); Potassium 3.8 mmoL/L (3.5-5.1); Sodium 139 mmol/L (136-145)
[2022-05-31 08:10] LABS: Alanine Aminotransferase 26 U/L (12-78); Albumin Level 3.6 g/dl (3.5-5.0); Albumin/Globulin Ratio 1.2 (1.1-1.8); Alkaline Phosphatase 100 U/L (38-126); Aspartate Amino Transferase 24 U/L (17-59); Blood Urea Nitrogen 30 mg/dl (9-20); Creatinine Clearance Estimated 167 mL/min (50-200); Estimated Glomerular Filt Rate 102 ml/min (>60); GFR (African American) 123 ML/MIN (>60); Total Protein,Serum 6.6 g/dl (6.3-8.2)
[2022-05-31 08:11] LABS: Calcium 8.6 mg/dl (8.4-10.2); Glucose 141 mg/dl (74-100)
[2022-05-31 08:20] LABS: Basophils # 0.1 K/mm3 (0-0.2); Basophils % 0.9 % (0.1-2.0); Eosinophils # 0.1 K/mm3 (0.0-0.4); Eosinophils % 0.6 % (0.1-12.0); Hematocrit 43.9 % (42.0-52.0); Hemoglobin 13.2 g/dL (14.1-18.0); Lymphocytes # 1.5 K/mm3 (0.7-4.5); Lymphocytes % 17.2 % (10-50); Mean Corpuscular Hemoglobin 28.6 pg (27.0-31.2); Mean Corpuscular Volume 95.4 fl (80-94); Mean Platelet Volume 8.4 fl (7.4-10.4); Monocytes # 0.9 K/mm3 (0.1-1.0); Monocytes % 10.2 % (1.7-9.3); Neutrophils # 6.3 K/mm3 (1.8-7.8); Neutrophils % 71.2 % (37.0-80.0); Platelet Count 237 K/mm3 (142-424); Red Cell Distribution Width 14.8 % (11.5-17.5); White Blood Count 8.8 K/mm3 (4.8-10.8)
[2022-05-31 08:24] LABS: Anion Gap 14.8 mEq/L (5-15); Bilirubin,Total < 0.1 mg/dl (0.2-1.3); Carbon Dioxide 47 mmol/L (22.0-30.0)
--- NOTE | 2022-05-31 09:41 | EXP.PULM.PN ---
Subjective *Date: 05/31/22 *Time: 12:20 Interval history: No acute respiratory events overnight. Patient denies any new complaints. Did not use his BiPAP overnight. Pulmonology Exam Inpatient Vital signs and Labs for Last 24 Hours: Temp Pulse Resp BP Pulse Ox FiO2 97.8 F 80 17 107/66 L 97 50 05/31/22 07:40 05/31/22 07:40 05/31/22 07:40 05/31/22 07:40 05/31/22 07:40 05/31/22 08:10 Laboratory Results - last 24 hr 05/30/22 11:49: POC Glucose 174 H 05/30/22 16:14: POC Glucose 139 H 05/30/22 20:14: POC Glucose 181 H 05/31/22 05:33: POC Glucose 158 H 05/31/22 07:38: Specimen Source Right radial, O2 % 2.5 l nc, ABG pH 7.38, ABG pCO2 75.2 H, ABG pO2 58.3 L, ABG HCO3 43.6 H, ABG Total CO2 45.9 H, ABG O2 Saturation 90, ABG Base Excess 18.5 H, Faisal Test Acceptable 05/31/22 07:55: WBC 8.8, RBC 4.60, Hgb 13.2 L, Hct 43.9, MCV 95.4 H, MCH 28.6, MCHC 30.0 L, RDW 14.8, Plt Count 237, MPV 8.4, Neut % (Auto) 71.2, Lymph % (Auto) 17.2, [place] % (Auto) 10.2 H, Eos % (Auto) 0.6, Baso % (Auto) 0.9, Neut # (Auto) 6.3, Lymph # (Auto) 1.5, [place] # (Auto) 0.9, Eos # (Auto) 0.1, Baso # (Auto) 0.1 05/31/22 07:55: Sodium 139, Potassium 3.8, Chloride 88 L, Carbon Dioxide 47 H*, Anion Gap 14.8, BUN 30 H, Creatinine 0.80, Estimated Creat Clear 167, Estimated GFR 102, Est GFR ( Amer) 123, Glucose 141 H, Calcium 8.6, Total Bilirubin < 0.1 L, AST 24, ALT 26, Alkaline Phosphatase 100, Total Protein 6.6, Albumin 3.6, Globulin 3.0, Albumin/Globulin Ratio 1.2 I & O for Labs for Last 24 Hours: Intake & Output 05/28/22 05/29/22 05/30/22 05/31/22 23:59 23:59 23:59 23:59 Intake Total 350 / 350 700 / 700 520 / 520 Output Total 900 / 900 500 / 1300 2200 / 2200 Balance -550 / -550 200 / -600 -1680 / -1680 Weight 225 lb 243 lb 3.2 oz 241 lb 1.6 oz Microbiology Reports for the Last 24 Hours: Microbiology 05/30/22 13:05 Sputum - Expectorated Sputum Gram Stain - Final Constitutional: Present mild distress Head: Present normocephalic and atraumatic ENT: Present normal exam, normal oropharynx and mucous membranes moist Neck: Present normal inspection and full ROM Respiratory: Present prolonged expiratory phase, respiratory distress, wheezes and able to speak in complete sentences Cardiac: Present S1/S2, Tachycardia and radial pulses present GI: Present soft and distention; Absent tenderness or guarding Skin: Present intact; Absent cyanosis or jaundice Neuro: Present alert, awake and oriented x 3 Extremities: Present normal inspection and edema; Absent clubbing or cyanosis Psychiatric: Present normal affect and cooperative Assessment and Plan *Assessment and plan (1) Acute exacerbation of chronic obstructive pulmonary disease: Status: Acute Category: Medical Code(s): J44.1 - Chronic obstructive pulmonary disease with (acute) exacerbation (2) Respiratory failure: Status: Acute Category: Medical Code(s): J96.90 - Respiratory failure, unspecified, unspecified whether with hypoxia or hypercapnia Plan #COPD exacerbation: #Acute hypoxic Hypercarbic Respiratory failure: Patient obtunded much of history is obtained from chart review. 52-year-old history of COPD most recent hospital admission for hypercarbic respiratory failure intubated and transferred to presented to the hospital again today for worsening respiratory distress. Slight improvement with most recent blood pressure pH is 1.15 PCO2 141. Mild leukocytosis on admission. Chest x-ray admission bilateral patchy airspace disease. ABG on admission for recurrent hypercarbic respiratory failure with a pH of 7.10 and PCO2 165., Patient had significant improvement in hypercarbic respiratory failure on BiPAP eventually weaned to nasal cannula. Interval date: Patient respiratory status remained stable on nasal cannula. Continue to receive cefepime and azithromycin. Prelim gram stain few gram-positive diplococci. Patient did not do straight catheter overnight.
--- NOTE | 2022-05-31 09:44 | XR_ITS ---
FINAL REPORT CLINICAL HISTORY: Hypoxia COMPARISON: May 29, 2022 FINDINGS: SINGLE VIEW CHEST The heart size is enlarged. The mediastinum is within normal limits. There are persistent bibasilar opacities. There is no evidence of pneumothorax. The bony thorax is intact. IMPRESSION: Persistent bibasilar opacities could represent atelectasis or pneumonia. Findings are slightly worse on the left as compared to prior. Reviewed, Interpreted and Dictated by Keven Sparks III, MD Transcribed by Chano Ortez Authenticated and [facility]
--- NOTE | 2022-05-31 09:59 | HMH.OTEV ---
OT Inpatient Evaluation Rehab OT IP Evaluation Start: 05/31/22 07:51 Freq: ONCE Status: Active Protocol: Document 05/31/22 09:54 CUONGALICIA (Rec: 05/31/22 09:59 CARLO [id number]) Rehab OT IP Assessment Subjective History Mr. Simmons is a 52-year-old male with history of COPD, diabetes, bipolar. Continues to smoke. Presented to the ER with episode of confusion and somnolence. Initial work-up concerning for hypercapnic respiratory failure with acidosis. Initiated on BiPAP. Medicine consulted for admission. He was brought to the ER via EMS who states that he was in respiratory distress at home that began earlier today. Got progressively worse. He denied chest pain, nausea, vomiting, chills. O2 saturations in the 50s when EMS arrived to his house. Has received duo nebs in the ER but continues to remain in respiratory distress. Given his alertness, BiPAP was used. He had a similar presentation a month ago necessitating intubation. Comprehensive respiratory panel at that time positive for para flu. He was transferred to tertiary care center for further management at that presentation. Patient admitted to medicine. Patient lives with siblings and additional family at home. Patient was independent with ADLs and fx'l mobility task at home. Subjective Patient oriented x4. Patient completed bed side bath at EOB prior to OT evaluation task. Patient sitting up at EOB at arrival of tx and demonstrated good dynamic sitting balance. Instructed Patient on SPT fr
--- NOTE | 2022-05-31 10:25 | SW/DCPLANNER ---
PT/OT evaluated this patient and stated that patient is able to return home w/ roommates at discharge.
--- NOTE | 2022-05-31 11:50 | HMH.PTEV ---
Physical Therapy Evaluation Rehab PT IP Evaluation Start: 05/31/22 07:51 Freq: ONCE Status: Active Protocol: Document 05/31/22 11:39 PRINCE (Rec: 05/31/22 11:50 PRINCE [id number]) Subjective/History History History Patient is a 52 year old male admitted to [facility] 05/29/22 secondary to acute respiratory failure. Patient reports that he previously lived in a moblie home with multiple family members, and was indpendent with all ADL's. Upon entering the room, patient was sitting at EOB performing breathing treatment . Subjective Subjective I feel better today than I have the last couple. Rehab PT IP Eval Objective Appearance Patient Behavior Appropriate,Cooperative Patient Orientation Person,Place,Name,Birthday Difficulty following instructions none Speech Pattern Clear,Appropriate Ambulation Patient Able to Ambulate Yes Balance Ability to Arise Able, w/o using arms Sitting Balance Steady, safe Standing Balance Narrow stance w/o support Dynamic Sitting Balance Ability Normal Dynamic Standing Balance Ability Normal Transfers Bed Transfer Ability Independent Chair Transfer Ability Independent Sit to Stand Bed Transfer Ability Independent Sit to Stand Chair Transfer Ability Independent ROM All Extremities PT ROM Status WFL MMT All Extremities PT MMT WFL Rehab PT IP prob,goals,plan Problems Date of Evaluation: 05/31/22 Discharge Plan PT Discharge Plan PT suggests patient is good to discharge back home once found medically stable by MD. G -code Required Yes Eval Complexity Eval Charge Codes 31465 - High Complexity G Codes PT Current Status Mobility PT Current Status Modifier CI-At least 1% but less than 20% impaired, limited or restricted PT Goal Status Mobility PT Goal Status Modifer CI-At least 1% but less than 20% impaired, limited or restricted PHYSICIAN CERTIFICATION: I certify the specified therapy services for Hema Simmons are required, authorized, and reviewed every 30 days.
[2022-05-31 12:16] LABS: ABG Base Excess 13.2 mmol/L (-2.4-2.3); ABG HCO3 38.9 mmhg (22.0-26.0); ABG Oxygen Saturation 97 % (90-100); ABG PH 7.34 mmol/L (7.35-7.45); ABG PO2 111.3 mmhg (80-100); ABG TCO2 41.1 mmhg (23-27)
[2022-05-31 12:17] LABS: Oxygen 50% %; Vent Rate 20
[2022-05-31 12:18] LABS: Allen's Test Acceptable; Source Right Radial
[2022-05-31 12:20] LABS: ABG PCO2 73.4 mmhg (35.0-45.0)
--- NOTE | 2022-05-31 17:06 | EXP.PN ---
Subjective *Date: 05/31/22 *Time: 17:06 Interval history: Patient reports feeling a little better today. His shortness of breath has improved some. Exam Data for Last 24 hours Vital signs and Labs for Last 24 Hours: Temp Pulse Resp BP Pulse Ox FiO2 97.6 F 73 17 101/58 L 99 50 05/31/22 15:19 05/31/22 15:19 05/31/22 15:19 05/31/22 15:19 05/31/22 15:19 05/31/22 13:54 Laboratory Results - last 24 hr 05/30/22 20:14: POC Glucose 181 H 05/31/22 05:33: POC Glucose 158 H 05/31/22 07:38: Specimen Source Right radial, O2 % 2.5 l nc, ABG pH 7.38, ABG pCO2 75.2 H, ABG pO2 58.3 L, ABG HCO3 43.6 H, ABG Total CO2 45.9 H, ABG O2 Saturation 90, ABG Base Excess 18.5 H, Faisal Test Acceptable 05/31/22 07:55: WBC 8.8, RBC 4.60, Hgb 13.2 L, Hct 43.9, MCV 95.4 H, MCH 28.6, MCHC 30.0 L, RDW 14.8, Plt Count 237, MPV 8.4, Neut % (Auto) 71.2, Lymph % (Auto) 17.2, [place] % (Auto) 10.2 H, Eos % (Auto) 0.6, Baso % (Auto) 0.9, Neut # (Auto) 6.3, Lymph # (Auto) 1.5, [place] # (Auto) 0.9, Eos # (Auto) 0.1, Baso # (Auto) 0.1 05/31/22 07:55: Sodium 139, Potassium 3.8, Chloride 88 L, Carbon Dioxide 47 H*, Anion Gap 14.8, BUN 30 H, Creatinine 0.80, Estimated Creat Clear 167, Estimated GFR 102, Est GFR ( Amer) 123, Glucose 141 H, Calcium 8.6, Total Bilirubin < 0.1 L, AST 24, ALT 26, Alkaline Phosphatase 100, Total Protein 6.6, Albumin 3.6, Globulin 3.0, Albumin/Globulin Ratio 1.2 05/31/22 12:03: Specimen Source Right radial, O2 % 50%, ABG pH 7.34 L, ABG pCO2 73.4 H, ABG pO2 111.3 H, ABG HCO3 38.9 H, ABG Total CO2 41.1 H, ABG O2 Saturation 97, ABG Base Excess 13.2 H, Faisal Test Acceptable, Vent Rate 20, Tidal Volume Bipap 20/10 I & O for Last 24 hours: Intake & Output 05/28/22 05/29/22 05/30/22 05/31/22 23:59 23:59 23:59 23:59 Intake Total 350 / 350 700 / 700 760 / 760 Output Total 900 / 900 500 / 1300 2200 / 2200 Balance -550 / -550 200 / -600 -1440 / -1440 Weight 102.058 kg 110.314 kg 109 kg Microbiology Reports for the Last 24 Hours: Microbiology 05/29/22 11:58 Blood Blood Culture - Preliminary NO GROWTH AFTER 48 HOURS 05/29/22 11:58 Blood Blood Culture - Preliminary NO GROWTH AFTER 48 HOURS 05/30/22 13:05 Sputum - Expectorated Sputum Gram Stain - Final Constitutional Constitutional: no acute distress, obese and cooperative *Routine HEENT Exam Head: Present normocephalic Eye: Present EOMI and PERRL ENT: Present mucous membranes moist *Routine Neck Exam Neck: Present supple and full ROM; Absent lymphadenopathy *Routine Respiratory Exam Respiratory: Present prolonged expiratory phase, rhonchi, wheezes, normal respiratory effort and able to speak in complete sentences; Absent CTA bilaterally or respiratory distress *Routine Cardiovascular Exam Cardiovascular: Present RRR; Absent murmur *Routine Abdominal Exam Abdominal: Present soft and normoactive bowel sounds; Absent tenderness *Routine Extremities Exam Extremities: Absent cyanosis, clubbing or edema *Routine Skin Exam Skin: Present warm; Absent rash *Routine Neurological Exam Neurological: Present alert, oriented X3, CN II-XII intact, moving all extremities and normal tone Routine Psychiatric Exam Psychiatric: Present normal affect, normal thought process, cooperative and good insight Assessment and Plan *Assessment and plan (1) Acute on chronic respiratory failure with hypoxia and hypercapnia: Status: Acute Category: Medical Code(s): J96.21 - Acute and chronic respiratory failure with hypoxia; J96.22 - Acute and chronic respiratory failure with hypercapnia (2) Acute exacerbation of chronic obstructive pulmonary disease: Status: Acute Category: Medical Code(s): J44.1 - Chronic obstructive pulmonary disease with (acute) exacerbation (3) SIRS (systemic inflammatory response syndrome): Status: Acute Category: Medical Code(s): R65.10 - Systemic inflammato
--- NOTE | 2022-05-31 19:26 | PC.NURSE ---
patient has done well this shift. no complaints. appears comfortable. has been up to chair. has worn bipap most of day. on 3l during meals and to use bathroom. encouraged to wear bipap at night. no questions or concerns. encouraged to ring out as needed. lung pedraza mostly clear.
[2022-05-31 20:52] LABS: POC Glucose,Bedside 199 (70-110)
[2022-06-01] VITALS (7 sets, daily range): BP systolic 96–111; BP diastolic 51–64; PULSE 65–83; RESP 17–22; TEMP 36.6–36.7; O2SAT 88–99; BMI 36.7
[2022-06-01 01:21] LABS: POC Glucose,Bedside 222 (70-110)
[2022-06-01 01:21] LABS: POC Glucose,Bedside 200 (70-110)
--- NOTE | 2022-06-01 03:36 | PC.NURSE ---
pATIENT HAS BEEN COMPLIANT WITH BIPAP USE. NO C/O PAIN/SOA/DISCOMFORT. SINUS RHYTHM ON THE TELEMETRY.
[2022-06-01 05:23] LABS: POC Glucose,Bedside 122 (70-110)
[2022-06-01 06:49] LABS: Basophils % 0.5 % (0.1-2.0); Eosinophils # 0.1 K/mm3 (0.0-0.4); Eosinophils % 0.8 % (0.1-12.0); Hematocrit 40.1 % (42.0-52.0); Lymphocytes # 1.6 K/mm3 (0.7-4.5); Lymphocytes % 17.4 % (10-50); Mean Corpuscular HGB Conc 29.9 g/dL (31.8-35.4); Mean Corpuscular Hemoglobin 28.6 pg (27.0-31.2); Mean Corpuscular Volume 95.7 fl (80-94); Mean Platelet Volume 8.2 fl (7.4-10.4); Monocytes % 11.2 % (1.7-9.3); Neutrophils # 6.5 K/mm3 (1.8-7.8); Neutrophils % 70.2 % (37.0-80.0); Platelet Count 250 K/mm3 (142-424); Red Blood Count 4.19 M/mm3 (4.60-6.20); Red Cell Distribution Width 14.8 % (11.5-17.5); White Blood Count 9.3 K/mm3 (4.8-10.8)
[2022-06-01 06:57] LABS: Chloride 90 mmol/L (98-107); Sodium 136 mmol/L (136-145)
[2022-06-01 07:00] LABS: Alanine Aminotransferase 25 U/L (12-78); Albumin Level 3.5 g/dl (3.5-5.0); Albumin/Globulin Ratio 1.3 (1.1-1.8); Alkaline Phosphatase 103 U/L (38-126); Aspartate Amino Transferase 22 U/L (17-59); Bilirubin,Total 0.2 mg/dl (0.2-1.3); Blood Urea Nitrogen 34 mg/dl (9-20); Creatinine Clearance Estimated 134 mL/min (50-200); Estimated Glomerular Filt Rate 78 ml/min (>60); GFR (African American) 95 ML/MIN (>60); Globulin 2.8 g/dL (1.3-3.2); Total Protein,Serum 6.3 g/dl (6.3-8.2)
[2022-06-01 07:01] LABS: Calcium 8.5 mg/dl (8.4-10.2); Glucose 124 mg/dl (74-100)
[2022-06-01 07:08] LABS: Carbon Dioxide 40 mmol/L (22.0-30.0)
[2022-06-01 08:01] LABS: ABG Base Excess 13.7 mmol/L (-2.4-2.3); ABG HCO3 38.9 mmhg (22.0-26.0); ABG Oxygen Saturation 90 % (90-100); ABG PH 7.38 mmol/L (7.35-7.45); ABG PO2 55.5 mmhg (80-100)
[2022-06-01 08:10] LABS: Allen's Test Acceptable; Oxygen 50% %; Pressure Support 22/12; Source Right Radial; Vent Rate 22
[2022-06-01 08:12] LABS: ABG PCO2 67.9 mmhg (35.0-45.0)
--- NOTE | 2022-06-01 08:31 | PC.NURSE ---
patient abg was reported to
--- NOTE | 2022-06-01 10:25 | EXP.PULM.PN ---
Subjective *Date: 06/01/22 *Time: 15:12 Interval history: No acute respiratory events overnight. Denies any new respiratory complaints. Pulmonology Exam Inpatient Vital signs and Labs for Last 24 Hours: Temp Pulse Resp BP Pulse Ox FiO2 97.9 F 78 17 111/64 88 L 50 06/01/22 07:29 06/01/22 07:29 06/01/22 07:29 06/01/22 07:29 06/01/22 09:53 06/01/22 06:59 Laboratory Results - last 24 hr 05/31/22 11:27: POC Glucose 200 H 05/31/22 12:03: Specimen Source Right radial, O2 % 50%, ABG pH 7.34 L, ABG pCO2 73.4 H, ABG pO2 111.3 H, ABG HCO3 38.9 H, ABG Total CO2 41.1 H, ABG O2 Saturation 97, ABG Base Excess 13.2 H, Faisal Test Acceptable, Vent Rate 20, Tidal Volume Bipap 30/0305/31/22 16:45: POC Glucose 222 H 05/31/22 20:43: POC Glucose 199 H 06/01/22 05:11: POC Glucose 122 H 06/01/22 06:35: WBC 9.3, RBC 4.19 L, Hgb 12.0 L, Hct 40.1 L, MCV 95.7 H, MCH 28.6, MCHC 29.9 L, RDW 14.8, Plt Count 250, MPV 8.2, Neut % (Auto) 70.2, Lymph % (Auto) 17.4, [place] % (Auto) 11.2 H, Eos % (Auto) 0.8, Baso % (Auto) 0.5, Neut # (Auto) 6.5, Lymph # (Auto) 1.6, [place] # (Auto) 1.0, Eos # (Auto) 0.1, Baso # (Auto) 0.0 06/01/22 06:35: Sodium 136, Potassium 4.0, Chloride 90 L, Carbon Dioxide 40 H, Anion Gap 10.0, BUN 34 H, Creatinine 1.00 D, Estimated Creat Clear 134, Estimated GFR 78, Est GFR ( Amer) 95 D, Glucose 124 H, Calcium 8.5, Total Bilirubin 0.2, AST 22, ALT 25, Alkaline Phosphatase 103, Total Protein 6.3, Albumin 3.5, Globulin 2.8, Albumin/Globulin Ratio 1.3 06/01/22 07:36: Specimen Source Right radial, O2 % 50%, ABG pH 7.38, ABG pCO2 67.9 H, ABG pO2 55.5 L, ABG HCO3 38.9 H, ABG Total CO2 41.0 H, ABG O2 Saturation 90, ABG Base Excess 13.7 H, Faisal Test Acceptable, Vent Rate 22 I & O for Labs for Last 24 Hours: Intake & Output 05/29/22 05/30/22 05/31/22 06/01/22 23:59 23:59 23:59 23:59 Intake Total 350 / 350 700 / 700 1000 / 1120 420 / 420 Output Total 900 / 900 500 / 1300 2500 / 2700 500 / 500 Balance -550 / -550 200 / -600 -1500 / -1580 -80 / -80 Weight 225 lb 243 lb 3.2 oz 240 lb 4.862 oz 242 lb 5 oz Microbiology Reports for the Last 24 Hours: Microbiology 05/30/22 13:05 Sputum - Expectorated Sputum Gram Stain - Final 05/30/22 13:05 Sputum - Expectorated Sputum Sputum Culture - Preliminary 05/29/22 11:58 Blood Blood Culture - Preliminary NO GROWTH AFTER 48 HOURS 05/29/22 11:58 Blood Blood Culture - Preliminary NO GROWTH AFTER 48 HOURS Constitutional: Present mild distress Head: Present normocephalic and atraumatic ENT: Present normal exam, normal oropharynx and mucous membranes moist Neck: Present normal inspection and full ROM Respiratory: Present prolonged expiratory phase, respiratory distress, wheezes and able to speak in complete sentences Cardiac: Present S1/S2, Tachycardia and radial pulses present GI: Present soft and distention; Absent tenderness or guarding Skin: Present intact; Absent cyanosis or jaundice Neuro: Present alert, awake and oriented x 3 Extremities: Present normal inspection and edema; Absent clubbing or cyanosis Psychiatric: Present normal affect and cooperative Assessment and Plan *Assessment and plan (1) Acute exacerbation of chronic obstructive pulmonary disease: Status: Acute Category: Medical Code(s): J44.1 - Chronic obstructive pulmonary disease with (acute) exacerbation (2) Respiratory failure: Status: Acute Category: Medical Code(s): J96.90 - Respiratory failure, unspecified, unspecified whether with hypoxia or hypercapnia Plan #COPD exacerbation: #Acute hypoxic Hypercarbic Respiratory failure: Patient obtunded much of history is obtained from chart review. 52-year-old history of COPD most recent hospital admission for hypercarbic respiratory failure intubated and transferred to presented to the hospital again today for worsening respiratory distress. Slight improvement with mos
--- NOTE | 2022-06-01 13:27 | EXP.DC.SUM ---
General Admission date:: 05/29/22 Discharge date: 06/01/22 HPI HPI HPI: Mr. Simmons is a 52-year-old male with history of COPD, diabetes, bipolar. Continues to smoke. Presented to the ER with episode of confusion and somnolence. Initial work-up concerning for hypercapnic respiratory failure with acidosis. Initiated on BiPAP. Medicine consulted for admission. He was brought to the ER via EMS who states that he was in respiratory distress at home that began earlier today. Got progressively worse. He denied chest pain, nausea, vomiting, chills. O2 saturations in the 50s when EMS arrived to his house. Has received duo nebs in the ER but continues to remain in respiratory distress. Given his alertness, BiPAP was used. He had a similar presentation a month ago necessitating intubation. Comprehensive respiratory panel at that time positive for para flu. He was transferred to tertiary [facility] for further management at that presentation. Patient admitted to medicine. On arrival to the floor, patient will awaken to voice and tactile stimuli. Tries to open eyes and answer questions. Falls back asleep. Repeat blood gas showing improvement in pH and PCO2. Seems to be tolerating BiPAP at this time. Pulmonology consulted to assist with further management. Patient moving spontaneously. Unable to obtain significant history from pain Hospital Course Hospital Course Hospital Course: 52-year-old male with extensive COPD history, continues to smoke.? Presented to the ER with respiratory failure and altered mental status.? Recently admitted last month to for similar presentation.? On arrival found to be in hypercarbic respiratory failure meeting criteria for sepsis (tachycardia, tachypnea, WBC >12 K).? Initiated on BiPAP.? Problems addressed as follows: //Acute on chronic hypoxemic and hypercarbic respiratory failure 2/2 COPD exacerbation with Respiratory acidosis - Mental status and ABG improved with BiPap. Returned to baseline by day of discharge. On arrival his pCO2 165. Improved to 67 which may be at or close to his baseline given normal mentation and the fact that he was alive with a pCO2 of 165. Additionally pH normalized 7.38. Pulmonology was consulted at admission. Appreciate their recommendations. Patient was started on IV steroids and broad-spectrum antibiotics. Plan to de-escalate to complete 7 days of antibiotics with Levaquin 750. Will complete 5 days of steroids with prednisone 40 mg orally. Patient will need to follow-up with pulmonology first week of June. Continue to wear supportive device at night (BiPAP/CPAP). Continue oxygen as needed at home for goal saturation greater 90%. Will need ABG prior to follow-up with pulmonology. Of note, infectious work-up negative during admission //Hypertension, Heart failure with preserved ejection fraction, Volume overloaded on admission - Repeat echocardiogram 05/30: EF 55%, grade 1 diastolic dysfunction. Continued home lisinopril/HCTZ 10/12.5 mg PO qd. atorvastatin 10 mg p.o. daily Type 2 diabetes -Sliding scale insulin, fingersticks ACHS during admission. Glucose relatively well controlled. Resume home regimen at discharge. Bipolar -Continue Seroquel 100 mg p.o. nightly, Lamictal 25 mg p.o. 4 times daily Tobacco use disorder: Patient requesting assistance with smoking cessation. Initiated nicotine patches. Would like to try varenicline however recommend deferral to outpatient setting where PCP can monitor response/potential reaction with Seroquel and Lamictal. Stable for discharge home. Medication sent to [facility]. Exam Data for Last 24 hours Vital signs and Labs for Last 24 Hours: Temp Pulse Resp BP Pulse Ox FiO2 98.1 F 70 17 104/51 L 96 50 06/01/22 11:27 06/01/22 11:27 06/01/22 11:27 06/01/22 11:27 06/01/22 11:27 06/01/22 06:59 Laboratory Results - last 24 hr 05/31/22 11:27: POC Glucose 200 H 05/31/22 16:45: POC Glucose 222 H 05/31/22 20
[2022-06-02 08:17] LABS: POC Glucose,Bedside 178 (70-110)
--- NOTE | 2022-06-02 13:32 | CARE MANAGER ---
Attempted post-discharge phone interview, no answer.
--- NOTE | 2022-06-06 15:03 | CARE MANAGER ---
Contacted patient's number. Person answered phone states patient yesterday.
== END 2022-06-01 14:50 | disposition home or self-care (01) | DRG 291 ==
LOC: ER 13:44 → 2ND 14:07
PROVIDERS: Internal Medicine Pulmonary Disease; Admitting Provider Internal Medicine Adolescent Medicine; Emergency Provider Emergency Medicine; Visit Provider Emergency Medicine
DX: I11.0 Hypertensive heart disease with heart failure (principal); I50.31 Acute diastolic (congestive) heart failure; J96.21 Acute and chronic respiratory failure with hypoxia; J96.22 Acute and chronic respiratory failure with hypercapnia; J44.1 Chronic obstructive pulmonary disease with (acute) exacerbation; E87.20 Acidosis, unspecified; F31.9 Bipolar disorder, unspecified; F17.210 Nicotine dependence, cigarettes, uncomplicated; E11.9 Type 2 diabetes mellitus without complications; Z79.84 Long term (current) use of oral hypoglycemic drugs; Z71.6 Tobacco abuse counseling
CPT/HCPCS: 36415; 71045; 80048; 80053; 82803; 82962; 83735; 83880; 84484; 85025; 87040; 87070; 87205; 87581; 87632; 87798; 93005; 93306; 94640; 94660; 94760; 97163; 97165; 99291; C9803; J0456; J0696; J1956; J3475; U0003; U0005